=== PATIENT | male | born 1980 | race Caucasian/White ===

== ENCOUNTER 2020-12-07 19:53 | Emergency (ER) | payer MEDICAID, SELFPAY ==
--- NOTE | ~2020-12-07 | XR_ITS ---
EXAMINATION: XR CHEST CLINICAL INFORMATION: Pain COMPARISON: None TECHNIQUE: Frontal view of the chest was obtained. FINDINGS: No acute finding. Lung lopez are grossly clear. No failure or infiltrate. There is no effusion. XR/XR chest 1V IMPRESSION: Negative acute portable chest
[2020-12-07 20:41] VITALS: BP 171/96; PULSE 91; RESP 16; TEMP 37.1; O2SAT 98; BMI 34.0
[2020-12-07 20:43] LABS: MANUAL DIFF FLAG NO
[2020-12-07 20:45] LABS: Basophils Percent Auto 0.5 % (0-2); Eosinophils Absolute Auto 0.1 X10*3/uL (0.0-0.4); Eosinophils Percent Auto 1.9 % (0-4); Hematocrit 45.2 % (42-52); Hemoglobin 16.5 g/dl (14.0-18.0); Imm Gran Abs Auto 0.02 X10*3/uL (0.00-0.03); Imm Gran Pct Auto 0.3 % (0.0-0.4); Lymphocytes Absolute Auto 2.7 X10*3/uL (1.2-4.9); Lymphocytes Percent Auto 36.7 % (20-40); Mean Corpuscular HGB Conc 36.5 g/dl (31.0-36.0); Mean Corpuscular Hemoglobin 31.7 pg (27.0-33.0); Mean Corpuscular Volume 86.8 fL (80-98); Mean Platelet Volume 9.1 fL (9.4-12.4); Monocytes Absolute Auto 0.5 X10*3/uL (0.1-1.2); Monocytes Percent Auto 6.5 % (2-11); Neutrophils Percent Auto 54.1 % (45-73); Platelet Count 189 X10*3/uL (160-400); Red Blood Count 5.21 X10*6/uL (4.60-5.80); Red Cell Distribution Width 11.8 % (11.0-16.0); White Blood Count 7.4 X10*3/uL (4.8-10.8)
[2020-12-07 21:26] LABS: Anion Gap 16 (12-20); Carbon Dioxide 25 mmol/L (22-29); Chloride 105 mmol/L (96-108); Potassium 4.5 mmol/L (3.3-5.1); Sodium 141 mmol/L (135-145)
[2020-12-07 21:32] LABS: Troponin-I High Sensitivity < 3.5 ng/L (<3.5-35.0)
--- NOTE | 2020-12-07 22:09 | ECG_ITS ---
Test Reason : CHEST PAIN Blood Pressure : / mmHG Vent. Rate : 104 BPM Atrial Rate : 104 BPM P-R Int : 154 ms QRS Dur : 086 ms QT Int : 326 ms P-R-T Axes : 036 006 037 degrees QTc Int : 428 ms Sinus tachycardia Septal infarct (cited on or before 28-AUG-2019) Abnormal ECG When compared with ECG of 08-SEP-2019 02:30, Questionable change in initial forces of Septal leads Referred By: Subha Gannon Electronically Signed By:NICOLAS LLAMAS MD
--- NOTE | 2020-12-07 22:10 | ED.CHESTPAIN ---
HPI - Chest Pain General Chief Complaint: Chest Pain Stated Complaint: Chest pain Time Seen by Provider: 12/07/20 22:09 Source: patient Mode of arrival: ambulatory History of Present Illness HPI narrative: 40-year-old male with history of hypertension and an ablation approximately 3 years ago who presents with onset of chest pressure that started approximately 1 hour prior to arrival associated with some dizziness but otherwise denies headache, shortness of breath, diaphoresis, radiation, nausea and states that he feels he may be getting himself wound up . 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 Otherwise, he denies any fever, chills, sore throat, new cough, COVID-19 vaccination, GI or symptoms. Related Data Allergies Allergy/AdvReac Type Severity Reaction Status Date / Time Penicillins [PENICILLINS] Allergy Unknown UNKNOWN Verified 12/07/20 20:59 Review of Systems Review of Systems: Pertinent positives and negatives as stated in HPI 10 point review of systems is otherwise negative. PMFSH Past Medical History Source: nursing notes reviewed Medical History Hxoew-Jrpebypdm-Lsgtk (WPW) syndrome Surgical History H/O cardiac radiofrequency ablation Social History Social History Alcohol intake: unknown Patient Tobacco Use Status: Never used Tobacco Use of substances other than those prescribed or required for medical reasons: No Advance Directives: No Advance Directives Information Provided: Yes Physical Exam Vital Signs: Vital Signs: Last Vital Signs Temp 99.1 F 12/07/20 23:32 Pulse 81 12/07/20 23:32 Resp 12 12/07/20 23:32 BP 149/98 H 12/07/20 23:32 Pulse Ox 93 12/07/20 23:32 Body Mass Index 34.0 VITAL SIGNS: Reviewed. GENERAL: Well developed, well nourished, in no acute distress. HEAD: Normocephalic/atraumatic EYES: PERRLA, EOMI intact without pain, no nystagmus EARS: Ext canals without abnormality, TMs non-bulging and non-erythematous NOSE: Nares patent bilateral OROPHARYNX: no oral lesions noted, posterior pharynx clear NECK: Supple, no adenopathy LUNGS: Normal breath sounds. No adventitious sounds or accessory muscle use. SpO2<98> CARDIOVASCULAR: Regular rate and rhythm without noted murmurs, no JVD or lower extremity edema. ABDOMEN: Obese,Soft, non-tender, non-distended with bowel sounds. SKIN: Inspection of the skin reveals no rashes NEUROLOGIC: Alert and oriented x 4. Strength and sensation to light touch were grossly intact x 4. Course Course Course Narrative: 40-year-old male with history and clinical presentation consistent with chest pressure, will perform serial troponins and a given patient's history of WPW will evaluate electrolyte status to include magnesium. HEART Score:1 Review of all investigations to include serial troponins without acute findings and no acute changes on EKG. Patient informed of results and highly encouraged to follow-up with a primary care provider for further evaluation. MDM - Chest Pain Lab Data Result diagrams: 12/07/20 20:36 12/07/20 20:36 Labs: Lab Results 12/07/20 12/07/20 12/07/20 Range/Units 20:36 20:36 20:36 WBC 7.4 (4.8-10.8) X10*3/uL RBC 5.21 (4.60-5.80) X10*6/uL Hgb 16.5 (14.0-18.0) g/dl Hct 45.2 (42-52) % MCV 86.8 (80-98) fL MCH 31.7 (27.0-33.0) pg MCHC 36.5 H (31.0-36.0) g/dl RDW 11.8 (11.0-16.0) % Plt Count 189 (160-400) X10*3/uL MPV 9.1 L (9.4-12.4) fL Immature Gran % (Auto) 0.3 (0.0-0.4) % Neut % (Auto) 54.1 (45-73) % Lymph % (Auto) 36.7 (20-40) % Wilkinson % (Auto) 6.5 (2-11) % Eos % (Auto) 1.9 (0-4) % Baso % (Auto) 0.5 (0-2) % Lymph # (Auto) 2.7 (1.2-4.9) X10*3/uL Wilkinson # (Auto) 0.5 (0.1-1.2) X10*3/uL Eos # (Auto) 0.1 (0.0-0.4) X10*3/uL Baso # (Auto) 0.0 (0.0-0.2) X10*3/uL Abs Immat Gran (auto) 0.02 (0.00-0.03) X10*3/uL Absolute Neuts (auto) 4.0 (2.0-8.3) X10*3/uL Absolute Nucleated RBC 0.000 (0.0-0.012) X10*3/uL Nucleated RBC % (auto) 0.0 (0.0-0.2) /100WBC Sodium 141 (135-145) mmol/L Potassium 4.5 (3.3-5.1) mmol/L Chloride 105 (96-108) mmol/L Carbon Dioxide 25 (22-29) mmol/L Anion Gap 16 (12-20) Magnesium 1.9 (1.6-2.6) mg/dL Troponin I High Sens < 3.5 (<3.5-35.0) ng/L 12/07/20 Range/Units 23:56 WBC (4.8-10.8) X10*3/uL RBC (4.60-5.80) X10*6/uL Hgb (14.0-18.0) g/dl Hct (42-52) % MCV (80-98) fL MCH (27.0-33.0) pg MCHC (31.0-36.0) g/dl RDW (11.0-16.0) % Plt Count (160-400) X10*3/uL MPV (9.4-12.4) fL Immature Gran % (Auto) (0.0-0.4) % Neut % (Auto) (45-73) % Lymph % (Auto) (20-40) % Wilkinson % (Auto) (2-11) % Eos % (Auto) (0-4) % Baso % (Auto) (0-2) % Lymph # (Auto) (1.2-4.9) X10*3/uL Wilkinson # (Auto) (0.1-1.2) X10*3/uL Eos # (Auto) (0.0-0.4) X10*3/uL Baso # (Auto) (0.0-0.2) X10*3/uL Abs Immat Gran (auto) (0.00-0.03) X10*3/uL Absolute Neuts (auto) (2.0-8.3) X10*3/uL Absolute Nucleated RBC (0.0-0.012) X10*3/uL Nucleated RBC % (auto) (0.0-0.2) /100WBC Sodium (135-145) mmol/L Potassium (3.3-5.1) mmol/L Chloride (96-108) mmol/L Carbon Dioxide (22-29) mmol/L Anion Gap (12-20) Magnesium (1.6-2.6) mg/dL Troponin I High Sens 4.2 (<3.5-35.0) ng/L ECG Data ECG #1: Attestation: I personally reviewed and interpreted this ECG as follows: Prior ECG tracings: not available for review Interpretation: sinus tachycardia, HR -104, no evidence of acute ischemia, ID/QRS / QTC are within normal limits. Discharge Plan Discharge Clinical Impression: Atypical chest pain, Anxiety Patient Disposition: Home, Self-Care Instructions: Anxiety (ED), Chest Wall Pain (ED) Additional Instructions: 1 Resume all home medications as prescribed. 2. Please follow-up with a primary care for care provider in the next 1-2 days for re-evaluation and further outpatient management to included discussion regarding Cardiology referral. Return to the ER for acute worsening of symptoms. Referrals: Physician,None [Primary Care Provider] - 2 days
[2020-12-07 22:28] LABS: Magnesium 1.9 mg/dL (1.6-2.6)
[2020-12-07 23:32] VITALS: BP 149/98; PULSE 81; RESP 12; TEMP 37.3; O2SAT 93
[2020-12-08 00:30] LABS: Troponin-I High Sensitivity 4.2 ng/L (<3.5-35.0)
== END 2020-12-08 01:04 | disposition home or self-care (01) ==
PROVIDERS: Emergency Provider Student in an Organized Health Care Education/Training Program
DX: F41.9 Anxiety disorder, unspecified (principal); R07.89 Other chest pain; I10 Essential (primary) hypertension; I45.6 Pre-excitation syndrome
CPT/HCPCS: 36415; 71045; 80051; 83735; 84484; 85025; 93005; 99285

== ENCOUNTER 2021-02-20 11:15 | Emergency (ER) | payer OTHER, SELFPAY ==
--- NOTE | ~2021-02-20 | XR_ITS ---
EXAMINATION: XR HIP, LEFT CLINICAL INFORMATION: Atraumatic left hip pain, limited range of motion. COMPARISON: CT pelvis 08/13/2018 TECHNIQUE: AP view pelvis and AP and frog-lateral projections of the left hip are obtained for 3 views. FINDINGS: There is no fracture, dislocation, or destructive process. There is normal bony mineralization. The SI joints and pubis show no diastases. No sacroiliitis or osteitis pubis. The hips show no joint narrowing or erosive change. There is a small triangular ossification adjacent to the superolateral left acetabulum similar to the CT study. No acute bony abnormality. XR/XR hip LT w PEL1V IMPRESSION: 1. No sacroiliitis or hip joint narrowing. No erosive change or chondrocalcinosis. 2. Bony mineralization appears normal on plain film. No destructive process.
[2021-02-20 12:19] VITALS: BP 135/89; PULSE 88; RESP 18; TEMP 36.6; O2SAT 96; BMI 36.9
[2021-02-20] MEDS: Ibuprofen 800 MG TABLET PO (13:07)
[2021-02-20] MEDS: oxyCODONE HCl Immed Release 5 MG TABLET PO (13:07)
--- NOTE | 2021-02-20 13:47 | ED.EXTPRO ---
HPI - Extremity Problem General Chief complaint: Extremity Injury, Lower Stated complaint: lt hip pain Time Seen by Provider: 02/20/21 12:46 Source: patient Mode of arrival: ambulatory Limitations: no limitations History of Present Illness HPI Narrative: 41-year-old male presenting to the ED with complaints of atraumatic left hip pain that started yesterday worse today he reports he feels like his ?bone is out of socket?. He reports he is having trouble weight-bearing. Denies any fevers, chills, paresthesias, chest pain or shortness of breath, abdominal pain, dysuria, hematuria, black or bloody stools, dysuria, hematuria, abnormal penile discharge or any other symptoms complaints or injuries at this time. MD Complaint: extremity pain Onset (ago): day(s) (Since yesterday worse today) Pain Consistency: constant Location: left and lower extremity (Hip joint) Severity scale (1-10): >10 Quality: aching Radiation: none Relieving factors: nothing Exacerbating factors: range of motion, weight bearing and walking Associated symptoms: denies other symptoms Related Data Previous Rx's Medication Instructions Recorded acetaminophen 500 mg tablet 1,000 mg PO QID PRN #14 tab 02/20/21 (Tylenol Extra Strength) diazepam 5 mg tablet (Valium) 5 mg PO TID PRN #14 tab 02/20/21 ibuprofen 800 mg tablet 800 mg PO Q8H PRN #14 tab 02/20/21 lidocaine HCl 4 % topical cream 1 appl TOPICAL BID PRN #120 g 02/20/21 (Aspercreme (lidocaine HCl)) oxycodone 5 mg tablet 5 mg PO Q6H PRN #14 tab 02/20/21 Allergies Allergy/AdvReac Type Severity Reaction Status Date / Time Penicillins [PENICILLINS] Allergy Unknown UNKNOWN Verified 12/07/20 20:59 Review of Systems Review of Systems: Constitutional : No Weight loss, No Fever, No Chills, No Night Sweats, No Fatigue, No Malaise ENT/Mouth : No Hearing loss, No Ear Pain, No Nasal Congestion, No Sinus Pain, No Hoarseness, No sore throat, No Rhinorrhea, No Swallowing Difficulty Eyes: No Eye Pain, No Swelling, No Redness, No Foreign Body, No Discharge, No Vision Changes Cardiovascular : No Chest Pain, No SOB, No Dyspnea on Exertion, No Orthopnea, No Edema, No Palpitations Respiratory : No Cough, No Sputum, No Wheezing, No Smoke Exposure, No Dyspnea Gastrointestinal : No Nausea, No Vomiting, No Diarrhea, No Constipation, No abdominal Pain, No Hematochezia, No Melena Genitourinary : no irregular bleeding, No Dysuria, No Urinary Frequency, No Hematuria, No Urinary Incontinence, No Urgency, No Flank Pain, No Urinary Flow Changes, No Hesitancy Musculoskeletal : Positive left hip joint pain, No Myalgias, No Joint Swelling Skin : No Skin Lesions, No rash Neuro : No Weakness, No Numbness, No Paresthesias, No Loss of Consciousness, No Dizziness, No Headache Psych : No Anxiety/Panic, No Depression, No SI/HI/AH/VH, No Social Issues, Heme/Lymph: No Bruising, No Bleeding,No Lymphadenopathy Endocrine : No Polyuria, No Polydipsia, No Temperature Intolerance Yes all other systems are reviewed and are negative [facility] Past Medical History Attestation statement: The following information was validated with the patient. Medical History Wiqid-Ipgtmddqd-Ftxbo (WPW) syndrome Surgical History H/O cardiac radiofrequency ablation Social History Social History Alcohol intake: unknown Patient Tobacco Use Status: Never used Tobacco Advance Directives: No Advance Directives Information Provided: No Physical Exam Vital Signs: Vital Signs: Last Vital Signs Temp 97.9 F 02/20/21 12:19 Pulse 88 02/20/21 12:19 Resp 18 02/20/21 12:19 BP 135/89 02/20/21 12:19 Pulse Ox 96 02/20/21 12:19 Body Mass Index 36.9 vital signs have been reviewed as normal and appeared to be correct. Blood pressure normal. Heart rate normal. Respiration rate normal. Temperature normal. Oxygen saturation normal. Appearance: Alert. Oriented X3. No acute distress. Head: Normal external exam. Normocephalic. Atraumatic. Eyes: PERRLA. EOMI. Conjunctiva and sclera normal. Eyelids normal. ENT: Pharynx normal. Uvula midline. Moist mucous membranes. Neck: Normal inspection. Neck supple. FROM. No adenopathy. No meningeal signs. CVS: Normal heart rate and rhythm. Heart sound normal. Pulses normal throughout. No murmurs/rales/gallops. Respiratory: No respiratory distress. Painless inspiration. Breath sounds normal. No wheezes/rales/rhonchi noted. Chest nontender. No accessory muscle usage noted or decreased air movement noted. Abdomen: Soft and nontender. Bowel sounds normal in all 4 quadrants. No distention noted. No organomegaly noted. No visible injury noted. Back: No CVA tenderness. Full range of motion noted. No rashes/lesion/induration/fluctuance or signs of infection noted. Skin: Skin warm and dry. Normal skin color. Normal skin turgor. No rashes/lesions/lacerations noted. Extremities: Patient with tenderness palpation to left hip joint at the lateral aspect. Patient has limited range of motion with abduction of the left hip. And he has a limping gait to the left leg due to pain. No signs of infection. No obvious ligamentous injury noted. No lower extremity edema. No calf tenderness is noted. Otherwise Extremities exhibit normal range of motion and nontender. Neuro: Oriented X 3. No motor deficit. No sensory deficit. Reflexes normal. Limping gait due to pain. No focal neuro deficits noted. Vascular: + 2 distal pedal pulses/+2 dorsalis pedis b/l. Normal cap refill. No cyanosis noted to upper extremity nails and lower extremity toes nails. Course Course Course Narrative: 41-year-old male presenting to the ED with complaints of atraumatic left hip pain that started yesterday worse today where he reports it hurts when he walks. On exam patient does not have any signs of infection has mild tenderness palpation to the left hip joint at the lateral aspect. No medial tenderness noted. No signs of infection or rashes noted. No obvious ligamentous injury noted. Mild limited range of motion due to pain and a limping gait due to pain. X-ray obtained of left hip and revealed chronic changes no acute processes were noted. And patient continues to deny any abdominal pain. He denies any dysuria, hematuria, abnormal penile discharge. And abdomen is soft nontender. He does not have any CVA tenderness. He does not have any lower extremity pain/edema or calf tenderness. Therefore at this time will provide crutches and symptomatic treatment instructions return if any new or worsening symptoms follow-up with primary care provider and orthopedics if symptoms persist for longer than 2-3 weeks. Patient understands agrees with this plan. MDM - Extremity (Nontraumatic) Medical Records Attestation: I reviewed the patient's medical records. Imaging Data Left hip x-ray: Attestation: I personally reviewed and interpreted this imaging study as follows: Radiologist's impression: FINDINGS: There is no fracture, dislocation, or destructive process. There is normal bony mineralization. The SI joints and pubis show no diastases. No sacroiliitis or osteitis pubis. The hips show no joint narrowing or erosive change. There is a small triangular ossification adjacent to the superolateral left acetabulum similar to the CT study. No acute bony abnormality. XR/XR hip LT w PEL1V IMPRESSION: ? 1. No sacroiliitis or hip joint narrowing. No erosive change or chondrocalcinosis. 2. Bony mineralization appears normal on plain film. No destructive process. Discharge Plan Discharge Clinical Impression: Muscle strain of left hip Patient Disposition: Home, Self-Care Instructions: Muscle Strain (ED), Groin Strain (ED), Crutch Instructions (ED) Prescriptions: New diazepam [Valium] 5 mg tablet 5 mg PO TID PRN (Reason: muscle spasm) Qty: 14 RF: 0 lidocaine HCl [Aspercreme (lidocaine HCl)] 4 % cream 1 appl topical BID PRN (Reason: pain) Qty: 120 RF: 0 ibuprofen 800 mg tablet 800 mg PO Q8H PRN (Reason: pain) Qty: 14 RF: 0 acetaminophen [Tylenol Extra Strength] 500 mg tablet 1,000 mg PO QID PRN (Reason: fever or pain) Qty: 14 RF: 0 oxycodone 5 mg tablet 5 mg PO Q6H PRN (Reason: pain) Qty: 14 RF: 0 Referrals: Tracy Wolf MD [Physician] - 2 weeks (if symptoms persist ) Physician,Unknown [Primary Care Provider] - 2 days (your pcp) Stand Alone Forms: Work/School Release Print Language: [place]
[2021-02-20 14:16] VITALS: RESP 18
== END 2021-02-20 14:24 | disposition home or self-care (01) ==
PROVIDERS: Emergency Provider Internal Medicine
DX: M25.552 Pain in left hip (principal); Z79.899 Other long term (current) drug therapy
CPT/HCPCS: 73502; 99283

== ENCOUNTER 2021-11-29 20:58 | Emergency (ER) | payer OTHER, SELFPAY ==
[2021-11-29 21:04] VITALS: BP 145/88; BP 210/100; PULSE 115; PULSE 136; RESP 10; TEMP 36.7; O2SAT 97; BMI 37.4
--- NOTE | 2021-11-29 21:07 | ECG_ITS ---
Test Reason : TACHYCARDIA Blood Pressure : / mmHG Vent. Rate : 111 BPM Atrial Rate : 111 BPM P-R Int : 160 ms QRS Dur : 090 ms QT Int : 322 ms P-R-T Axes : 041 005 036 degrees QTc Int : 437 ms Sinus tachycardia Septal infarct (cited on or before 28-AUG-2019) Abnormal ECG When compared with ECG of 07-DEC-2020 19:58, No significant change was found Referred By: Justine Husain Electronically Signed By:NICOLAS LLAMAS MD
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
[2021-11-29 21:34] LABS: MANUAL DIFF FLAG NO
[2021-11-29] MEDS: LORazepam 0.5 MG TABLET PO (21:36)
[2021-11-29 21:49] LABS: Basophils Absolute Auto 0.1 X10*3/uL (0.0-0.2); Basophils Percent Auto 0.7 % (0-2); Eosinophils Absolute Auto 0.1 X10*3/uL (0.0-0.4); Eosinophils Percent Auto 1.2 % (0-4); Hemoglobin 16.3 g/dl (14.0-18.0); Imm Gran Abs Auto 0.02 X10*3/uL (0.00-0.03); Imm Gran Pct Auto 0.2 % (0.0-0.4); Lymphocytes Absolute Auto 3.4 X10*3/uL (1.2-4.9); Lymphocytes Percent Auto 38.6 % (20-40); Mean Corpuscular HGB Conc 36.2 g/dl (31.0-36.0); Mean Corpuscular Volume 85.6 fL (80.0-98.0); Mean Platelet Volume 9.1 fL (9.4-12.4); Monocytes Absolute Auto 0.6 X10*3/uL (0.1-1.2); Neutrophils Absolute Auto 4.7 x10*3/uL (2.0-8.3); Neutrophils Percent Auto 52.3 % (45-73); Platelet Count 192 X10*3/uL (160-400); Red Blood Count 5.26 X10*6/uL (4.60-5.80); White Blood Count 8.9 X10*3/uL (4.8-10.8)
[2021-11-29 21:52] LABS: Alanine Aminotransferase 60 U/L (0-40); Albumin Level 4.2 g/dL (3.5-5.0); Alkaline Phosphatase 98 U/L (39-117); Anion Gap 13 (12-20); Aspartate Amino Transferase 39 U/L (5-37); Bilirubin Total 0.7 mg/dL (0.0-1.0); Blood Urea Nitrogen 12 mg/dL (9-16); COVID-19 Test Negative (Negative); Carbon Dioxide 27 mmol/L (22-29); Chloride 105 mmol/L (96-108); Estimated Glomerular Filt Rate > 60; Glucose Random 127 mg/dL (60-115); Magnesium 2.1 mg/dL (1.6-2.6); Potassium 3.6 mmol/L (3.3-5.1); Sodium 141 mmol/L (135-145); Total Protein 7.4 g/dL (6.5-8.0)
[2021-11-29 21:58] LABS: Troponin-I High Sensitivity 3.7 ng/L (<3.5-35.0)
[2021-11-29 22:03] VITALS: BP 145/91; PULSE 85; RESP 14; TEMP 36.8; O2SAT 95
[2021-11-29] MEDS: 0.9 % Sodium Chloride 1,000 ML 999 ML IV (23:25)
[2021-11-30 01:33] LABS: Troponin-I High Sensitivity 4.4 ng/L (<3.5-35.0)
[2021-11-30 01:49] VITALS: BP 134/78; PULSE 62; RESP 14; TEMP 36.7; O2SAT 97
== END 2021-11-30 02:06 | disposition home or self-care (01) ==
PROVIDERS: Physician Assistant; Emergency Provider Emergency Medicine Emergency Medical Services
DX: T75.4XXA Electrocution, initial encounter (principal); I45.6 Pre-excitation syndrome; Z20.822 Contact with and (suspected) exposure to COVID-19; W86.1XXA Exposure to industrial wiring, appliances and electrical machinery, initial encounter; Y93.9 Activity, unspecified; Y92.9 Unspecified place or not applicable; Y99.9 Unspecified external cause status
CPT/HCPCS: 36415; 80053; 82550; 83735; 84484; 85025; 87635; 93005; 96360; 99284; 99285

== ENCOUNTER 2023-08-30 12:15 | Emergency (ER) | payer OTHER, SELFPAY ==
--- NOTE | ~2023-08-30 | CT_ITS ---
EXAMINATION: CT HEAD WITHOUT CONTRAST CLINICAL INFORMATION: Dizziness, headache COMPARISON: None available. TECHNIQUE: Contiguous axial imaging was performed from the skull base to vertex without intravenous administration of contrast. This CT examination was performed using dose optimization techniques as appropriate, variously including the following: *Automated exposure control *Adjustment of mA and/or kV according to patient size (this includes techniques or standardized protocols for targeted exams where dose is matched to indication/reason for exam; i.e. extremities or head) *Use of iterative reconstruction technique DLP: 720 mGy-cm FINDINGS: No acute intracranial hemorrhage or infarct. The simms-white matter differentiation is preserved. No midline shift or hydrocephalus. No acute extra-axial fluid collections. The osseous structures are unremarkable. No orbital pathology. Mild mucosal thickening of the paranasal sinuses with polyposis versus mucus retention cysts in the bilateral maxillary sinuses. Mastoid air cells are clear. CT/CT head/brain wo IV con IMPRESSION: -No acute intracranial pathology. -Pansinus mucosal disease.
--- NOTE | ~2023-08-30 | CT_ITS ---
EXAMINATION: CTA head and neck with contrast CLINICAL INFORMATION: Left-sided numbness, tingling, blurred vision COMPARISON: None available. TECHNIQUE: Test bolus sequences followed by intravenous administration of 70 mL of Omnipaque 350 contrast. Helical imaging was performed in the axial plane from the skull vertex to the thoracic inlet. Delayed postcontrast imaging of the head was also performed. The data was processed at the cytotechnologist supervisor workstation for generation of MIP sequences. Angled MIPs and volume rendered reformatted images were also generated at an offline 3D workstation. Stenoses are assessed in accordance with NASCET criteria unless otherwise indicated. This CT examination was performed using dose optimization techniques as appropriate, variously including the following: *Automated exposure control *Adjustment of mA and/or kV according to patient size (this includes techniques or standardized protocols for targeted exams where dose is matched to indication/reason for exam; i.e. extremities or head) *Use of iterative reconstruction technique DLP: 1476 mGy-cm FINDINGS: CTA neck: Three-vessel aortic arch. The innominate and bilateral subclavian arteries are patent. The origins and cervical segments of the common carotid arteries as well as the common carotid artery bifurcations are patent bilaterally. The cervical segments of the internal carotid arteries are patent bilaterally. The origins and cervical segments of the vertebral arteries are patent bilaterally. No hemodynamically significant stenosis, dissection, or aneurysm. The visualized branches of the external carotid arteries are unremarkable. CTA HEAD: Anterior circulation: The petrous, cavernous, and supraclinoid segments of the internal carotid arteries are patent bilaterally. The major branches of the anterior and middle cerebral arteries as well as the anterior communicating artery complex are also patent. No large vessel occlusion, saccular aneurysm, or dissection. Posterior circulation: The intracranial vertebral arteries are patent. The basilar artery is normal in caliber and course. The posterior cerebral and superior cerebellar arteries arise normally from the basilar summit. No aneurysm. On delayed imaging, the venous structures demonstrate normal contrast opacification. No filling defect. No abnormal intraparenchymal enhancement. Soft tissues: No suspicious neck mass or cervical adenopathy. Lungs: Clear. Bones: No acute osseous abnormality. No lytic or blastic osseous lesions. Multilevel degenerative changes of the visualized spine. CT/CT angio head neck IMPRESSION: CTA head demonstrates no large vessel occlusion, saccular aneurysm, or dissection. CTA neck demonstrates no hemodynamically significant stenosis, dissection, or aneurysm.
[2023-08-30 12:25] VITALS: PULSE 100; RESP 18; TEMP 37.1; O2SAT 97; BMI 37.2
--- NOTE | 2023-08-30 12:31 | ED_ITS ---
HPI - General Adult General Chief complaint: General Medical Stated complaint: ear pain/headache Time Seen by Provider: 08/30/23 12:51 Source: patient Mode of arrival: ambulatory Limitations: no limitations History of Present Illness HPI narrative: Patient is a 43 year old assigned male at with a history of WPW presenting to the emergency department today with left sided facial numbness/tingling, left ear pain, and intermittent left eye blurriness. Patient states that over the last 2 days he has had left sided facial numbness / tingling with left ear pain and intermittent left eye blurriness. Patient denies any dizziness, lightheadedness, abdominal pain, nausea, vomiting, fever, chills, blurry vision, double vision, loss of vision, chest pain, difficulty breathing, shortness of breath, back pain, night sweats, pain with urination, increased urinary frequency, increased urinary urgency, blood in his urine or stool, syncope or a near syncopal episode, recent trauma or falls, bowel incontinence, bladder incontinence, bowel retention, bladder retention, or any other complaints at this time. Onset (ago): day(s) (2) Location: head, face and left Severity: mild Relieving factors: none Exacerbating factors: none Associated symptoms: denies other symptoms Treatments prior to arrival: none Related Data Previous Rx's Medication Instructions Recorded acetaminophen 500 mg tablet 1,000 mg (2 x 500 mg) PO QID PRN 02/20/21 (Tylenol Extra Strength) fever or pain #14 tabs diazepam 5 mg tablet (Valium) 5 mg PO TID PRN muscle spasm #14 02/20/21 tabs ibuprofen 800 mg tablet 800 mg PO Q8H PRN pain #14 tabs 02/20/21 lidocaine HCl 4 % topical cream 1 appl topical BID PRN pain #120 02/20/21 (Aspercreme (lidocaine HCl)) grams oxycodone 5 mg tablet 5 mg PO Q6H PRN pain #14 tabs 02/20/21 amoxicillin 875 mg tablet 875 mg PO BID 10 days #20 tabs 08/30/23 doxycycline hyclate 100 mg tablet 100 mg PO BID 7 days #14 tabs 08/30/23 Allergies Allergy/AdvReac Type Severity Reaction Status Date / Time Penicillins [PENICILLINS] Allergy Unknown UNKNOWN Verified 08/30/23 12:25 Review of Systems 2 Constitutional: Constitutional: Reports no additional constitutional complaints, Denies chills, Denies fever(s) and Denies night sweats Eyes: Eyes: Reports no additional eye complaints, Denies blurry vision, Denies change in vision, Denies diplopia, Denies eye discharge, Denies loss of vision and Denies eye pain ENT: Denies dizziness Comments: left sided ear pain, left sided facial numbness / tingling, intermittent left eye blurriness Cardiovascular: Cardiovascular: Reports no additional cardiovascular complaints, Denies chest pain, Denies lightheadedness, Denies Loss of Consciousness and Denies dyspnea Respiratory: Respiratory: Reports no additional respiratory complaints and Denies dyspnea Gastrointestinal: Gastrointestinal: Reports no additional gastrointestinal complaints, Denies abdominal pain, Denies melena, Denies hematochezia, Denies change in bowel habits and Denies change in stool character Genitourinary: Genitourinary: Reports no additional male genitourinary complaints, Denies hematuria, Denies oliguria, Denies difficulty urinating, Denies dysuria, Denies urinary frequency, Denies urinary hesitancy, Denies urinary incontinence and Denies urinary urgency Musculoskeletal: Musculoskeletal: Reports no additional musculoskeletal complaints, Denies numbness and Denies tingling Neurologic: Denies dizziness, Denies loss of vision, Denies numbness and Denies tingling Psychiatric: Psychiatric: Reports no additional psychiatric complaints Endocrine: Endocrine: Reports no additional endocrine complaints Hematologic/Lymphatic: Hematologic/Lymphatic: Reports no additional hematologic/lymphatic complaints Allergic/Immunologic: Allergic/Immunologic: Reports no additional allergic/immunologic complaints [facility] Past Medical History Attestation statement: The following information was validated with the patient. Source: old records reviewed and nursing notes reviewed Medical History Lgrsc-Zwrvqzprv-Kzohp (WPW) syndrome Surgical History H/O cardiac radiofrequency ablation Social History Social History Alcohol intake: unknown Patient Tobacco Use Status: Never used Tobacco Advance Directives: No Physical Exam ED Vital Signs: Vital Signs - 24 hr 08/30/23 12:25 08/30/23 14:56 08/30/23 16:10 Temperature 98.7 F 97.7 F Pulse Rate 100 88 93 Respiratory Rate 18 16 18 Blood Pressure 129/91 H 146/89 H Pulse Oximetry 97 94 96 Oxygen Delivery Method Room Air Room Air Room Air BMI result Body Mass Index 37.2 Const General: cooperative, no acute distress, alert and awake Nutritional Appearance: well nourished Orientation/consciousness: patient oriented x3 Limitations: no limitations HENMT Head: Yes normal to inspection and Yes atraumatic Ears: hearing grossly normal bilaterally and external ears normal General nose exam: Normal external nose present, no nasal discharge noted and no epistaxis Face and sinus: Yes normal facial exam, No abrasion and No laceration Mouth: Normal oral and palatal mucosa present, no drooling and no muffled voice Eyes General: appearance normal, both eyes and all related structures Periorbital: periorbital findings normal Eyelids: Yes eyelids normal Conjunctivae: conjunctivae normal Pupils: Equal, round and reactive pupils present EOM: EOMs intact bilaterally Neck Neck: Yes normal visual inspection, Yes full ROM and Yes no lymphadenopathy Chest Chest palpation & inspection: normal inspection of the chest Resp Effort & Inspection: normal respiratory effort and able to speak in complete sentences GI Inspection: Yes normal to inspection Neuro General: patient oriented x3 and moves all extremities Cranial nerves: Yes Equal, round and reactive pupils present Cognition (Neuro): normal cognition Motor exam (neuro): 5/5 motor strength present throughout Sensory Exam: Normal double simultaneous stimulation for sensation Coordination: [id number] test normal Extrem General: Yes normal to inspection, Yes full ROM and Yes capillary refill normal Psych Appearance: grossly normal Mental Status: mental status grossly normal Affect: normal affect Attitude: cooperative Thought process: Normal thought process present Thought content: Normal thought content present Insight: Good insight present (Psych) NIH Stroke Scale Internal: Initial- Upon Arrival Time: 12:51 Level of Consciousness: Alert Level of Consciousness Questions: Answers both questions correctly Level of Consciousness Commands: Performs both tasks correctly Best Gaze: Normal Visual: No visual loss Facial Palsy: Normal Motor Arm (Right): No drift Motor Arm (Left): No drift Motor Leg (Right): No drift Motor Leg (Left): No drift Limb Ataxia: Absent Sensory: Normal Best Language: No aphasia Dysarthia: Normal Extinction and Inattention: No abnormality Score: 0 Course Course Course Narrative: RME:?43 yo male here for eval of left facial numbness/pain x2 days. assoc blurred vision in L eye. did not take OTC meds over the last 2 days. denies N/V, fever, chills, sore throat. no sick contacts. no hx of migraines. exam nonfocal. NIH stroke scale 0. Full HPI, ROS and PE to be performed by the primary ED provider. Medications Administered Discontinued Medications Generic Name Dose Route Start Last Admin Trade Name Kassidy PRN Reason Stop Dose Admin Iohexol 70 ml 08/30/23 14:19 08/30/23 14:20 Iohexol 350 Mg/Ml 100 Ml Infus..Btl IV 08/30/23 14:20 70 ml ONCE ONE Administration Lorazepam 2 mg 08/30/23 14:37 08/30/23 14:42 Lorazepam 2 Mg/Ml Vial IVPUSH 08/30/23 14:38 2 mg ONCE ONE Administration Morphine Sulfate 4 mg 08/30/23 15:37 08/30/23 15:48 Morphine Sulfate 4 Mg/Ml Cartridge IVPUSH 08/30/23 15:38 4 mg ONCE ONE Administration Protocol Ondansetron HCl 4 mg 08/30/23 15:37 08/30/23 15:49 Ondansetron Hcl 4 Mg/2 Ml Vial IVPUSH 08/30/23 15:38 4 mg ONCE ONE Administration Medical Decision Making Medical Decision Making [facility] Narrative: Patient is a 43 year old assigned male at with no reported medical history presenting to the emergency department today with left sided paresthesias and left ear pain. Patient's physical exam was unremarkable. Patient's blood work was unremarkable. Patient's EKG was unremarkable. Patient's head CT showed evidence of sinus disease. Patient's head and neck CTAs were negative. Patient's strep test was positive. I explained my physical exam findings as well as all test results to the patient. I answered all questions asked by the patient. I stressed the importance of the patient taking his medication as prescribed. I stressed the importance of the patient following up with his primary care provider. I stressed the importance of the patient returning to the emergency department immediately if his symptoms were to worsen or if he were to develop any dizziness, shortness of breath, difficulty breathing, chest pain, blurry vision, loss of vision, nausea, vomiting, abdominal pain, fever, chills, back pain, or any other complaints. Patient verbalized agreement and understanding with this treatment plan and discharge. Differential Diagnosis Differential Diagnoses: The differential diagnosis associated with the presentation includes Paresthesias Otitis media Otitis externa CVA Strep pharyngitis COVID-19 Influenza Sinusitis Admission/Observation Consideration of admission/observation: Escalation of care including admission/observation considered Patient would have been admitted to the hospital had his work up had any findings where hospital admission was appropriate and his clinical presentation warranted hospital admission. Lab Data [facility] Lab Attestation statement: I reviewed the patient's lab results. My interpretation of these results are in the MDM Rationale portion of this note. 08/30/23 12:35 08/30/23 12:35 Labs: Lab Results 08/30/23 08/30/23 08/30/23 Range/Units 12:35 13:40 15:03 WBC 7.1 (4.8-10.8) X10*3/uL RBC 5.61 (4.60-5.80) X10*6/uL Hgb 17.7 (14.0-18.0) g/dl Hct 47.3 (42.0-52.0) % MCV 84.3 (80.0-98.0) fL MCH 31.6 (27.0-33.0) pg MCHC 37.4 H (31.0-36.0) g/dl RDW 11.8 (11.0-16.0) % Plt Count 196 (160-400) X10*3/uL MPV 9.0 L (9.4-12.4) fL Immature Gran % (Auto) 0.1 (0.0-0.4) % Neut % (Auto) 59.7 (45-73) % Lymph % (Auto) 32.3 (20-40) % [place] % (Auto) 5.7 (2-11) % Eos % (Auto) 1.6 (0-4) % Baso % (Auto) 0.6 (0-2) % Lymph # (Auto) 2.3 (1.2-4.9) X10*3/uL [place] # (Auto) 0.4 (0.1-1.2) X10*3/uL Eos # (Auto) 0.1 (0.0-0.4) X10*3/uL Baso # (Auto) 0.0 (0.0-0.2) X10*3/uL Abs Immat Gran (auto) 0.01 (0.00-0.03) X10*3/uL Absolute Neuts (auto) 4.2 (2.0-8.3) x10*3/uL Absolute Nucleated RBC 0.000 (0.0-0.012) X10*3/uL Nucleated RBC % (auto) 0.0 (0.0-0.2) /100WBC Sodium 140 (135-145) mmol/L Potassium 3.9 (3.3-5.1) mmol/L Chloride 105 (96-108) mmol/L Carbon Dioxide 23 (22-29) mmol/L Anion Gap 16 (12-20) BUN 9 (9-16) mg/dL Creatinine 0.94 (0.5-1.4) mg/dL Estim Creat Clear Calc 126.3 Estimated GFR > 60 Random Glucose 157 H (60-115) mg/dL Calcium 9.3 (8.4-10.2) mg/dL Total Bilirubin 0.8 (0.0-1.0) mg/dL AST 31 (5-37) U/L ALT 51 H (0-40) U/L Alkaline Phosphatase 90 (39-117) U/L Troponin I High Sens < 2.7 (<3.5-35.0) ng/L Total Protein 7.9 (6.5-8.0) g/dL Albumin 4.3 (3.5-5.0) g/dL Influenza Type A (PCR) NEGATIVE (Negative) Influenza Type B (PCR) NEGATIVE (Negative) RSV RNA Qual (PCR) NEGATIVE (Negative) SARS-CoV-2 RNA (RT-PCR) NEGATIVE (Negative) S. pyogenes GrpA GABRIELA Positive A (Negative) Independent Interpretation I performed an independent interpretation of an: EKG and CT Scan Interpretation: My interpretation is in agreement with the radiologist's impression of these imaging studies. - EXAMINATION: CT HEAD WITHOUT CONTRAST CLINICAL INFORMATION: Dizziness, headache COMPARISON: None available. TECHNIQUE: Contiguous axial imaging was performed from the skull base to vertex without intravenous administration of contrast. This CT examination was performed using dose optimization techniques as appropriate, variously including the following: *Automated exposure control *Adjustment of mA and/or kV according to patient size (this includes techniques or standardized protocols for targeted exams where dose is matched to indication/reason for exam; i.e. extremities or head) *Use of iterative reconstruction technique DLP: 720 mGy-cm FINDINGS: No acute intracranial hemorrhage or infarct. The simms-white matter differentiation is preserved. No midline shift or hydrocephalus. No acute extra-axial fluid collections. The osseous structures are unremarkable. No orbital pathology. Mild mucosal thickening of the paranasal sinuses with polyposis versus mucus retention cysts in the bilateral maxillary sinuses. Mastoid air cells are clear. CT/CT head/brain wo IV con IMPRESSION: -No acute intracranial pathology. -Pansinus mucosal disease. Dictated By: Chico De Anda MD Signed By: Electronically signed by Chico De Anda MD 08/30/23 1333 - EXAMINATION: CTA head and neck with contrast CLINICAL INFORMATION: Left-sided numbness, tingling, blurred vision COMPARISON: None available. TECHNIQUE: Test bolus sequences followed by intravenous administration of 70 mL of Omnipaque 350 contrast. Helical imaging was performed in the axial plane from the skull vertex to the thoracic inlet. Delayed postcontrast imaging of the head was also performed. The data was processed at the staff technologist workstation for generation of MIP sequences. Angled MIPs and volume rendered reformatted images were also generated at an offline 3D workstation. Stenoses are assessed in accordance with NASCET criteria unless otherwise indicated. This CT examination was performed using dose optimization techniques as appropriate, variously including the following: *Automated exposure control *Adjustment of mA and/or kV according to patient size (this includes techniques or standardized protocols for targeted exams where dose is matched to indication/reason for exam; i.e. extremities or head) *Use of iterative reconstruction technique DLP: 1476 mGy-cm FINDINGS: CTA neck: Three-vessel aortic arch. The innominate and bilateral subclavian arteries are patent. The origins and cervical segments of the common carotid arteries as well as the common carotid artery bifurcations are patent bilaterally. The cervical segments of the internal carotid arteries are patent bilaterally. The origins and cervical segments of the vertebral arteries are patent bilaterally. No hemodynamically significant stenosis, dissection, or aneurysm. The visualized branches of the external carotid arteries are unremarkable. CTA HEAD: Anterior circulation: The petrous, cavernous, and supraclinoid segments of the internal carotid arteries are patent bilaterally. The major branches of the anterior and middle cerebral arteries as well as the anterior communicating artery complex are also patent. No large vessel occlusion, saccular aneurysm, or dissection. Posterior circulation: The intracranial vertebral arteries are patent. The basilar artery is normal in caliber and course. The posterior cerebral and superior cerebellar arteries arise normally from the basilar summit. No aneurysm. On delayed imaging, the venous structures demonstrate normal contrast opacification. No filling defect. No abnormal intraparenchymal enhancement. Soft tissues: No suspicious neck mass or cervical adenopathy. Lungs: Clear. Bones: No acute osseous abnormality. No lytic or blastic osseous lesions. Multilevel degenerative changes of the visualized spine. CT/CT angio head neck IMPRESSION: CTA head demonstrates no large vessel occlusion, saccular aneurysm, or dissection. CTA neck demonstrates no hemodynamically significant stenosis, dissection, or aneurysm. Dictated By: Chico De Anda MD Signed By: Electronically signed by Chico De Anda MD 08/30/23 1532 - Vent. Rate: 095 BPM Atrial Rate: 095 BPM P-R Int: 158 ms QRS Dur: 088 ms QT Int: 340 ms P-R-T Axes: 046 -02 049 degrees QTc Int: 427 ms Normal sinus rhythm with sinus arrhythmia Normal ECG When compared with ECG of 29-NOV-2021 20:59, No significant change was found DD/ 1450 Radiology Impression Discussion of test interpretation with radiology: I have reviewed the radiologist's reading. Prescription Management I considered prescription management with: Antibiotic (patient prescribed an antibiotic for his strep pharyngitis and sinusitis) Critical Care Time Critical Care Time Critical Care Time: Yes Total Critical Care Time: 88 Attestation: I spent 88 minutes of Critical Care Time with this patient. This does not include time spent on separately reported billable procedures. Discharge Plan Discharge Clinical Impression: Strep pharyngitis, Sinusitis, Headache Patient Disposition: Home, Self-Care Instructions: Sinusitis (ED), Strep Throat (DC), Acute Headache (DC) Additional Instructions: Take all of your antibiotics as prescribed. Even if you start to feel better - you MUST finish your course of antibiotics. Follow up with your primary care provider and an ENT. Return to the emergency department immediately if your symptoms worsen or if you develop any dizziness, shortness of breath, difficulty breathing, chest pain, blurry vision, loss of vision, nausea, vomiting, abdominal pain, fever, chills, back pain, or any other complaints. Prescriptions: New amoxicillin 875 mg tablet 875 mg PO BID 10 Days Qty: 20 0RF doxycycline hyclate 100 mg tablet 100 mg PO BID 7 Days Qty: 14 0RF No Action diazepam [Valium] 5 mg tablet 5 mg PO TID PRN (Reason: muscle spasm) Qty: 14 0RF lidocaine HCl [Aspercreme (lidocaine HCl)] 4 % cream 1 appl topical BID PRN (Reason: pain) Qty: 120 0RF ibuprofen 800 mg tablet 800 mg PO Q8H PRN (Reason: pain) Qty: 14 0RF acetaminophen [Tylenol Extra Strength] 500 mg tablet 1,000 mg PO QID PRN (Reason: fever or pain) Qty: 14 0RF oxycodone 5 mg tablet 5 mg PO Q6H PRN (Reason: pain) Qty: 14 0RF Referrals: [facility] Family Medicine [Provider Group] (Call to establish and follow up with a primary care provider. If you already have a primary care provider, please follow up with them.) [facility] Primary Care, Stef [Provider Group] (Call to establish and follow up with a primary care provider. If you already have a primary care provider, please follow up with them.) [facility] Primary Care,Juan Pablo [Provider Group] (Call to establish and follow up with a primary care provider. If you already have a primary care provider, please follow up with them.) [place] Acosta [Physician] - (Call to establish and follow up with an ENT specialist to discuss the findings in your sinuses. ) Stand Alone Forms: Work/School Release Interventions: ED Discharge Assessment Last Done: 08/30/23 16:10 Discharge Date/Time: 08/30/23 16:11 Print Language: French
[2023-08-30 12:39] LABS: MANUAL DIFF FLAG NO
[2023-08-30 12:51] LABS: Basophils Percent Auto 0.6 % (0-2); Eosinophils Absolute Auto 0.1 X10*3/uL (0.0-0.4); Eosinophils Percent Auto 1.6 % (0-4); Hematocrit 47.3 % (42.0-52.0); Hemoglobin 17.7 g/dl (14.0-18.0); Imm Gran Abs Auto 0.01 X10*3/uL (0.00-0.03); Imm Gran Pct Auto 0.1 % (0.0-0.4); Lymphocytes Absolute Auto 2.3 X10*3/uL (1.2-4.9); Lymphocytes Percent Auto 32.3 % (20-40); Mean Corpuscular HGB Conc 37.4 g/dl (31.0-36.0); Mean Corpuscular Hemoglobin 31.6 pg (27.0-33.0); Mean Corpuscular Volume 84.3 fL (80.0-98.0); Monocytes Absolute Auto 0.4 X10*3/uL (0.1-1.2); Monocytes Percent Auto 5.7 % (2-11); Neutrophils Absolute Auto 4.2 x10*3/uL (2.0-8.3); Neutrophils Percent Auto 59.7 % (45-73); Platelet Count 196 X10*3/uL (160-400); Red Blood Count 5.61 X10*6/uL (4.60-5.80); Red Cell Distribution Width 11.8 % (11.0-16.0); White Blood Count 7.1 X10*3/uL (4.8-10.8)
[2023-08-30 12:55] LABS: Alanine Aminotransferase 51 U/L (0-40); Albumin Level 4.3 g/dL (3.5-5.0); Alkaline Phosphatase 90 U/L (39-117); Anion Gap 16 (12-20); Aspartate Amino Transferase 31 U/L (5-37); Bilirubin Total 0.8 mg/dL (0.0-1.0); Blood Urea Nitrogen 9 mg/dL (9-16); Calcium 9.3 mg/dL (8.4-10.2); Carbon Dioxide 23 mmol/L (22-29); Chloride 105 mmol/L (96-108); Creatinine Clr Calc Pharmacy 126.3; Estimated Glomerular Filt Rate > 60; Glucose Random 157 mg/dL (60-115); Potassium 3.9 mmol/L (3.3-5.1); Sodium 140 mmol/L (135-145); Total Protein 7.9 g/dL (6.5-8.0)
[2023-08-30 14:04] LABS: IDNOW Serial# 08D9AD1C; Strep A Nucleic Acid Positive (Negative)
[2023-08-30] MEDS: iohexoL 350 MG/ML 100 ML INFUS..BTL 70 ML IV (14:20)
--- NOTE | 2023-08-30 14:30 | ECG_ITS ---
Test Reason : CP Blood Pressure : / mmHG Vent. Rate : 095 BPM Atrial Rate : 095 BPM P-R Int : 158 ms QRS Dur : 088 ms QT Int : 340 ms P-R-T Axes : 046 -02 049 degrees QTc Int : 427 ms Normal sinus rhythm with sinus arrhythmia Normal ECG When compared with ECG of 29-NOV-2021 20:59, No significant change was found Referred By: Judy Mann Electronically Signed By:RAMESH ANAYA
[2023-08-30 14:32] LABS: Influenza A PCR NEGATIVE (Negative); Influenza B PCR NEGATIVE (Negative); Resp Syncy Virus RNA Qual PCR NEGATIVE (Negative); SARS COV2 PCR INHOUSE NEGATIVE (Negative)
[2023-08-30] MEDS: LORazepam 2 MG/ML VIAL IVPUSH (14:42)
[2023-08-30 14:56] VITALS: BP 129/91; PULSE 88; RESP 16; O2SAT 94
[2023-08-30 15:32] LABS: Troponin-I High Sensitivity < 2.7 ng/L (<3.5-35.0)
[2023-08-30] MEDS: Morphine Sulfate 4 MG/ML CARTRIDGE IVPUSH (15:48)
[2023-08-30] MEDS: ondansetron HCL 4 MG/2 ML VIAL IVPUSH (15:49)
[2023-08-30 16:10] VITALS: BP 146/89; PULSE 93; RESP 18; TEMP 36.5; O2SAT 96
== END 2023-08-30 16:11 | disposition home or self-care (01) ==
PROVIDERS: Physician Assistant Medical; Emergency Provider Emergency Medicine
DX: J02.0 Streptococcal pharyngitis (principal); J32.9 Chronic sinusitis, unspecified; H92.02 Otalgia, left ear; R51.9 Headache, unspecified; R07.89 Other chest pain; Z11.52 Encounter for screening for COVID-19; Z20.822 Contact with and (suspected) exposure to COVID-19; Z79.899 Other long term (current) drug therapy
CPT/HCPCS: 0241U; 36415; 70450; 70496; 70498; 80053; 84484; 85025; 87651; 93005; 96374; 96375; 99284; J2060; J2270; J2405; Q9967

== ENCOUNTER → 2023-08-30 14:30 | Outpatient (BNV) | payer OTHER, SELFPAY | PROVIDERS: Emergency Provider Emergency Medicine; Visit Provider Internal Medicine | DX: R07.9 Chest pain, unspecified (principal) | CPT/HCPCS: 93010 ==

== ENCOUNTER 2023-08-31 16:23 | Emergency (ER) | payer OTHER, SELFPAY ==
[2023-08-31 16:28] VITALS: BP 172/103; PULSE 94; RESP 18; TEMP 36.1; O2SAT 95; BMI 35.4
--- NOTE | 2023-08-31 16:43 | ED.GENADULT ---
HPI - General Adult General Chief complaint: General Medical Stated complaint: left face droop/lump in neck/pain Time Seen by Provider: 08/31/23 20:03 Source: patient, RN notes reviewed and old records reviewed Mode of arrival: ambulatory Limitations: no limitations History of Present Illness HPI narrative: 43-year-old male presents for evaluation of left ear pain and left facial numbness. He was seen here yesterday for similar complaints. He had a stroke workup including CT angiography of the head and neck which was unremarkable. He ended up testing positive for strep pharyngitis and his CT scan showed sinusitis The patient was discharged with amoxicillin and doxycycline He reports worsening pain to his left ear and ?a lump behind/underneath my left ear. ? He also endorses drainage from the left ear He states the pain is unbearable even with ibuprofen and Tylenol No fevers or chills Related Data Previous Rx's Medication Instructions Recorded acetaminophen 500 mg tablet 1,000 mg (2 x 500 mg) PO QID PRN 02/20/21 (Tylenol Extra Strength) fever or pain #14 tabs diazepam 5 mg tablet (Valium) 5 mg PO TID PRN muscle spasm #14 02/20/21 tabs ibuprofen 800 mg tablet 800 mg PO Q8H PRN pain #14 tabs 02/20/21 lidocaine HCl 4 % topical cream 1 appl topical BID PRN pain #120 02/20/21 (Aspercreme (lidocaine HCl)) grams oxycodone 5 mg tablet 5 mg PO Q6H PRN pain #14 tabs 02/20/21 amoxicillin 875 mg tablet 875 mg PO BID 10 days #20 tabs 08/30/23 doxycycline hyclate 100 mg tablet 100 mg PO BID 7 days #14 tabs 08/30/23 ciprofloxacin HCl 0.2 % ear drops 5 drp otic (ear) left Q12H 7 days 08/31/23 in a dropperette #14 ea tramadol 50 mg tablet 50 mg PO Q6H PRN pain #15 tabs 08/31/23 Allergies Allergy/AdvReac Type Severity Reaction Status Date / Time Penicillins [PENICILLINS] Allergy Unknown UNKNOWN Verified 08/31/23 16:27 Review of Systems Constitutional: Constitutional: Denies body ache(s), Denies chills and Denies fever(s) Eyes: Eyes: Denies blurry vision ENT: Reports ear discharge, Reports otalgia and Reports sore throat Cardiovascular: Cardiovascular: Denies chest pain and Denies dyspnea Respiratory: Respiratory: Denies cough and Denies dyspnea Gastrointestinal: Gastrointestinal: Denies abdominal pain, Denies nausea and Denies vomiting Musculoskeletal: Musculoskeletal: Denies back pain, Reports numbness and Reports tingling Integumentary/Breasts: Skin/Breast: Denies rash Neurologic: Reports numbness, Reports tingling and Reports paresthesias Hematologic/Lymphatic: Hematologic/Lymphatic: Reports lymphadenopathy PMFSH Past Medical History Medical History Axctj-Anrzqkzey-Tkvtl (WPW) syndrome Surgical History H/O cardiac radiofrequency ablation Social History Social History Alcohol intake: unknown Patient Tobacco Use Status: Never used Tobacco Smoked in Last 30 Days: No Use of substances other than those prescribed or required for medical reasons: No Advance Directives: No Advance Directives Information Provided: No Physical Exam ED Vital Signs: Vital Signs - 24 hr 08/31/23 16:28 08/31/23 17:25 08/31/23 18:33 Temperature 97 F 98.3 F Pulse Rate 94 84 87 Respiratory Rate 18 18 18 Blood Pressure 172/103 H 140/88 H 137/96 H Pulse Oximetry 95 96 96 Oxygen Delivery Method Room Air Room Air Room Air BMI result Body Mass Index 35.4 Const General: healthy appearing, comfortable, no acute distress, alert and awake Nutritional Appearance: well nourished Orientation/consciousness: patient oriented x3 HENMT Head: Yes normocephalic and Yes atraumatic Ears: external ears normal, TM's normal bilaterally, EAC's not normal and Abnormal EAC present (Left ear only) erythema, edema, EAC tenderness, otic discharge purulent and other (No vesicular changes or rash) Throat: Yes posterior oropharynx normal Eyes Eyelids: Yes eyelids normal Conjunctivae: conjunctivae normal Sclerae: sclerae normal Corneas: corneas normal Pupils: Equal, round and reactive pupils present EOM: EOMs intact bilaterally Neck Neck: Yes full ROM Resp Effort & Inspection: normal respiratory effort, able to speak in complete sentences and not labored GI Inspection: No distended Palpation (GI): Soft to palpation, not firm, nontender, no guarding and not rigid Skin General skin exam: elasticity normal Neuro General: patient oriented x3 Cranial nerves: Yes CN's II-XII intact bilaterally, Yes Equal, round and reactive pupils present and Yes Bilaterally intact EOM present Cognition (Neuro): normal cognition Extrem Other: Moving all extremities well without any obvious deformities Course Course Course Narrative: RME:?43 yo male here for eval of worsening left-sided facial pain. He was evaluated in ED yesterday and discharged home with antibiotics for diagnosis of sinusitis. denies fevers, dizziness, vision changes, chest pain or shortness of breath. no facial droop. Able to raise bilateral eyebrows. Unable to smell completely due to left facial pain. Top And Seat Cover Fitter strength intact bilaterally. No pronator drift. Ambulating with steady gait. Maxillary sinuses nontender to palpation. hypertensive- no hx of HTN. Never required medications. basic labs and serology ordered. Full HPI, ROS and PE to be performed by the primary ED provider. Medical Decision Making Medical Decision Making [facility] Narrative: 43-year-old male presents for evaluation of left ear pain. He reports left facial numbness and paresthesias but his nares are intact. His blood pressure improved without any intervention. On exam he appears to have acute left otitis externa he has purulent otorrhea. No vesicular changes to suggest zoster or Lidia Asif syndrome. Plan to continue the antibiotics for his strep treatment and add Cipro drops to treat otitis externa. He has no evidence of mastoiditis. There is no preauricular or postauricular edema. No postauricular tenderness. He does have some left postauricular lymphadenopathy. He was given a 1 time dose of dexamethasone to help with his discomfort and inflammation Differential Diagnosis Differential Diagnoses: The differential diagnosis associated with the presentation includes Otitis media Otitis externa Pharyngitis Strep pharyngitis Lymphadenopathy Herpes zoster Lab Data [facility] Lab Attestation statement: I reviewed the patient's lab results. No leukocytosis or significant anemia. Normal platelet count. No electrolyte abnormalities. Glucose elevated to 206 without any evidence of DKA. 08/31/23 17:13 08/31/23 17:13 Labs: Lab Results 08/31/23 Range/Units 17:13 WBC 6.2 (4.8-10.8) X10*3/uL RBC 5.44 (4.60-5.80) X10*6/uL Hgb 17.0 (14.0-18.0) g/dl Hct 46.8 (42.0-52.0) % MCV 86.0 (80.0-98.0) fL MCH 31.3 (27.0-33.0) pg MCHC 36.3 H (31.0-36.0) g/dl RDW 11.9 (11.0-16.0) % Plt Count 176 (160-400) X10*3/uL MPV 9.1 L (9.4-12.4) fL Immature Gran % (Auto) 0.2 (0.0-0.4) % Neut % (Auto) 53.6 (45-73) % Lymph % (Auto) 36.0 (20-40) % Mcduffie % (Auto) 7.6 (2-11) % Eos % (Auto) 1.6 (0-4) % Baso % (Auto) 1.0 (0-2) % Lymph # (Auto) 2.2 (1.2-4.9) X10*3/uL Mcduffie # (Auto) 0.5 (0.1-1.2) X10*3/uL Eos # (Auto) 0.1 (0.0-0.4) X10*3/uL Baso # (Auto) 0.1 (0.0-0.2) X10*3/uL Abs Immat Gran (auto) 0.01 (0.00-0.03) X10*3/uL Absolute Neuts (auto) 3.3 (2.0-8.3) x10*3/uL Absolute Nucleated RBC 0.000 (0.0-0.012) X10*3/uL Nucleated RBC % (auto) 0.0 (0.0-0.2) /100WBC Sodium 141 (135-145) mmol/L Potassium 4.0 (3.3-5.1) mmol/L Chloride 104 (96-108) mmol/L Carbon Dioxide 27 (22-29) mmol/L Anion Gap 14 (12-20) BUN 9 (9-16) mg/dL Creatinine 1.03 (0.5-1.4) mg/dL Estim Creat Clear Calc 112.4 Estimated GFR > 60 Random Glucose 206 H (60-115) mg/dL Calcium 9.4 (8.4-10.2) mg/dL Total Bilirubin 0.6 (0.0-1.0) mg/dL AST 23 (5-37) U/L ALT 42 H (0-40) U/L Alkaline Phosphatase 78 (39-117) U/L Total Protein 7.7 (6.5-8.0) g/dL Albumin 4.1 (3.5-5.0) g/dL Influenza Type A (PCR) NEGATIVE (Negative) Influenza Type B (PCR) NEGATIVE (Negative) RSV RNA Qual (PCR) NEGATIVE (Negative) SARS-CoV-2 RNA (RT-PCR) NEGATIVE (Negative) Discharge Plan Discharge Clinical Impression: Strep pharyngitis, Otitis externa Patient Disposition: Home, Self-Care Instructions: Otitis Externa (ED) Additional Instructions: Continue taking your antibiotics for strep throat and sinusitis You have an ear infection called otitis externa to the left ear Use the ciprofloxacin ear drops as directed You were given a dose of steroids which should help decrease inflammation and help with your pain Use Motrin and Tylenol for pain Use tramadol for more severe breakthrough pain This may make you sleepy, did not drink alcohol or drive after taking it Prescriptions: New ciprofloxacin HCl 0.2 % dropperette 5 drp otic (ear) left Q12H 7 Days Qty: 14 0RF tramadol 50 mg tablet 50 mg PO Q6H PRN (Reason: pain) Qty: 15 0RF No Action diazepam [Valium] 5 mg tablet 5 mg PO TID PRN (Reason: muscle spasm) Qty: 14 0RF lidocaine HCl [Aspercreme (lidocaine HCl)] 4 % cream 1 appl topical BID PRN (Reason: pain) Qty: 120 0RF ibuprofen 800 mg tablet 800 mg PO Q8H PRN (Reason: pain) Qty: 14 0RF acetaminophen [Tylenol Extra Strength] 500 mg tablet 1,000 mg PO QID PRN (Reason: fever or pain) Qty: 14 0RF oxycodone 5 mg tablet 5 mg PO Q6H PRN (Reason: pain) Qty: 14 0RF amoxicillin 875 mg tablet 875 mg PO BID 10 Days Qty: 20 0RF doxycycline hyclate 100 mg tablet 100 mg PO BID 7 Days Qty: 14 0RF
[2023-08-31 17:18] LABS: MANUAL DIFF FLAG NO
[2023-08-31 17:19] LABS: Basophils Absolute Auto 0.1 X10*3/uL (0.0-0.2); Eosinophils Absolute Auto 0.1 X10*3/uL (0.0-0.4); Eosinophils Percent Auto 1.6 % (0-4); Hematocrit 46.8 % (42.0-52.0); Imm Gran Abs Auto 0.01 X10*3/uL (0.00-0.03); Imm Gran Pct Auto 0.2 % (0.0-0.4); Lymphocytes Absolute Auto 2.2 X10*3/uL (1.2-4.9); Mean Corpuscular HGB Conc 36.3 g/dl (31.0-36.0); Mean Corpuscular Hemoglobin 31.3 pg (27.0-33.0); Mean Platelet Volume 9.1 fL (9.4-12.4); Monocytes Absolute Auto 0.5 X10*3/uL (0.1-1.2); Monocytes Percent Auto 7.6 % (2-11); Neutrophils Absolute Auto 3.3 x10*3/uL (2.0-8.3); Neutrophils Percent Auto 53.6 % (45-73); Platelet Count 176 X10*3/uL (160-400); Red Blood Count 5.44 X10*6/uL (4.60-5.80); Red Cell Distribution Width 11.9 % (11.0-16.0); White Blood Count 6.2 X10*3/uL (4.8-10.8)
[2023-08-31 17:25] VITALS: BP 140/88; PULSE 84; RESP 18; TEMP 36.8; O2SAT 96
--- NOTE | 2023-08-31 17:27 | PC.NURSE ---
patient a&ox3, vss, pt c/o lt ear pain and headache, 02/16 pain, labs drawn by tech, pt awaiting provider evaluation, call escamilla within reach, will continue to monitor
[2023-08-31 17:32] LABS: Alanine Aminotransferase 42 U/L (0-40); Albumin Level 4.1 g/dL (3.5-5.0); Alkaline Phosphatase 78 U/L (39-117); Anion Gap 14 (12-20); Aspartate Amino Transferase 23 U/L (5-37); Bilirubin Total 0.6 mg/dL (0.0-1.0); Blood Urea Nitrogen 9 mg/dL (9-16); Calcium 9.4 mg/dL (8.4-10.2); Carbon Dioxide 27 mmol/L (22-29); Chloride 104 mmol/L (96-108); Creatinine Clr Calc Pharmacy 112.4; Estimated Glomerular Filt Rate > 60; Glucose Random 206 mg/dL (60-115); Sodium 141 mmol/L (135-145); Total Protein 7.7 g/dL (6.5-8.0)
[2023-08-31 17:55] LABS: Influenza A PCR NEGATIVE (Negative); Influenza B PCR NEGATIVE (Negative); Resp Syncy Virus RNA Qual PCR NEGATIVE (Negative); SARS COV2 PCR INHOUSE NEGATIVE (Negative)
[2023-08-31 18:33] VITALS: BP 137/96; PULSE 87; RESP 18; O2SAT 96
[2023-08-31] MEDS: traMADoL HCL 50 MG TABLET PO (20:48)
[2023-08-31] MEDS: dexAMETHasone sod phosphate 10 MG/ML VIAL IM (20:48)
[2023-08-31 21:23] VITALS: BP 153/87; PULSE 70; RESP 18; TEMP 37.1; O2SAT 97
[2023-09-11 16:32] LABS: Dexamethasone <20 ng/dL
== END 2023-08-31 21:25 | disposition home or self-care (01) ==
PROVIDERS: Physician Assistant; Physician Assistant Medical; Emergency Provider Emergency Medicine
DX: H60.92 Unspecified otitis externa, left ear (principal); J02.0 Streptococcal pharyngitis; Z11.52 Encounter for screening for COVID-19; Z20.828 Contact with and (suspected) exposure to other viral communicable diseases
CPT/HCPCS: 0241U; 36415; 80053; 80299; 85025; 96372; 99284; J1100

== ENCOUNTER 2023-09-04 11:44 | Emergency (ER) | payer OTHER, SELFPAY ==
[2023-09-04 11:50] VITALS: BP 143/103; PULSE 79; RESP 16; TEMP 35.8; O2SAT 97; BMI 35.4
--- NOTE | 2023-09-04 11:51 | ED.GENADULT ---
HPI - General Adult General Chief complaint: Ear Problems Stated complaint: Pain in ear & L side of face Time Seen by Provider: 09/04/23 13:58 Source: patient and family Mode of arrival: ambulatory Limitations: no limitations History of Present Illness HPI narrative: 43-year-old male presents to the emergency department, with his , for complaints of left-sided numbness, paralysis, and left ear pain. He reports that he was evaluated here on both 08/29 and 08/30 for similar pains. He reports he had a CT scan of his head and neck which showed no evidence of injury or stroke. He was ultimately diagnosed with a strep infection as well as otitis externa and started on antibiotics. He reports he has 3 days left to complete the antibiotics that he has been taking them as prescribed. He reports his pain has not improved over the last several days. He reports that he attempted to get into an ENT specialist but has not been able to at this time. He denies any new paresthesias, weakness, change in gait range of motion, fever, chills, or recent trauma. Pertinent positives and negatives discussed in HPI Related Data Previous Rx's Medication Instructions Recorded acetaminophen 500 mg tablet 1,000 mg (2 x 500 mg) PO QID PRN 02/20/21 (Tylenol Extra Strength) fever or pain #14 tabs diazepam 5 mg tablet (Valium) 5 mg PO TID PRN muscle spasm #14 02/20/21 tabs ibuprofen 800 mg tablet 800 mg PO Q8H PRN pain #14 tabs 02/20/21 lidocaine HCl 4 % topical cream 1 appl topical BID PRN pain #120 02/20/21 (Aspercreme (lidocaine HCl)) grams oxycodone 5 mg tablet 5 mg PO Q6H PRN pain #14 tabs 02/20/21 amoxicillin 875 mg tablet 875 mg PO BID 10 days #20 tabs 08/30/23 doxycycline hyclate 100 mg tablet 100 mg PO BID 7 days #14 tabs 08/30/23 ciprofloxacin HCl 0.2 % ear drops 5 drp otic (ear) left Q12H 7 days 08/31/23 in a dropperette #14 ea tramadol 50 mg tablet 50 mg PO Q6H PRN pain #15 tabs 08/31/23 gabapentin 100 mg capsule 100 mg PO TID #14 caps 09/04/23 prednisone 50 mg tablet 50 mg PO DAILY 5 days #5 tabs 09/04/23 Allergies Allergy/AdvReac Type Severity Reaction Status Date / Time Penicillins [PENICILLINS] Allergy Unknown UNKNOWN Verified 09/04/23 11:53 Review of Systems Review of Systems: Yes all other systems are reviewed and are negative [facility] Past Medical History Medical History Emufw-Shbkdhujg-Ymgrw (WPW) syndrome Surgical History H/O cardiac radiofrequency ablation Social History Social History Alcohol intake: unknown Patient Tobacco Use Status: Never used Tobacco Advance Directives: No Physical Exam ED Vital Signs: Vital Signs - 24 hr 09/04/23 11:50 Temperature 96.4 F L Pulse Rate 79 Respiratory Rate 16 Blood Pressure 143/103 H Pulse Oximetry 97 Oxygen Delivery Method Room Air BMI result Body Mass Index 35.4 Nursing notes and vital signs reviewed. GENERAL APPEARANCE: A&0 x 4, generally well appearing, no acute distress HENMT: Normal to inspection, atraumatic. Facial asymmetry noted with left-sided paralysis. Normal external ears, nose, and oropharynx clear. EYE: PERRLA, EOM intact, structures appear normal NECK: Supple without stiffness or restricted ROM. HEART: Normal rate and regular rhythm, normal S1/S2, no M/R/G LUNGS: LS CTA, moving air well. Able to speak in complete sentences. No crackles, wheezes, or rhonchi auscultated BACK: No CVAT, no obvious deformity EXTREMITIES: Moving all extremities without difficulty. Normal capillary refill. NEUROLOGICAL: Alert and oriented, moving all 4 extremities with equal strength. CN not formally tested but appearing grossly intact. Observed to ambulate with normal gait. Cognition normal SKIN: Warm and dry without any lesions, rash, or visible sores Course Course Course Narrative: RME:?43 yo male here for eval of left facial numbness/ pain and left ear pain x2 weeks. diagnosed with otitis externa, strep and sinusitis after being evaluated in twice in our ED last week. reports continued left sided facial numbness and left ear pain. discharged home with pain medication and abx. taking abx as prescribed, has 3 more days left. Full HPI, ROS and PE to be performed by the primary ED provider. Medications Administered Discontinued Medications Generic Name Dose Route Start Last Admin Trade Name Kassidy PRN Reason Stop Dose Admin Gabapentin 100 mg 09/04/23 14:20 09/04/23 14:34 Gabapentin 100 Mg Capsule PO 09/04/23 14:21 100 mg ONCE ONE Administration Prednisone 60 mg 09/04/23 14:20 09/04/23 14:34 Prednisone 20 Mg Tablet PO 09/04/23 14:21 60 mg ONCE ONE Administration Medical Decision Making Medical Decision Making MDM Narrative: Old records reviewed for previous imaging, lab studies, ECGs, and notes. Blood work and CTA from 08/09 showing no evidence of acute infection, mastoiditis, or CVA. Patient was assessed the emergency department with no acute distress or toxicity noted. Patient's symptoms appear consistent with Figueroa's palsy and there is question of left-sided cholesteatoma on ear exam which could be causing edema and compression the facial nerves. Gabapentin and prednisone given here in the emergency department for management of pain and inflammation prescription sent to patient's preferred pharmacy. Patient educated to follow-up with ENT regarding question of cholesteatoma with contact information provided. Patient is safe for discharge at this time with plan for [id number] Tylenol and/or NSAID such as ibuprofen or naproxen for fever/discomfort with dosing as per packaging. HPI, PE, diagnostics, and plan discussed with patient and family with no unanswered questions at this time. Strict return precautions given to return to the emergency department with new, worsening, or concerning emergent symptoms. Recommended to follow-up with there primary care provider in 24-48 hours for further treatment and management. Differential Diagnosis Differential Diagnoses: The differential diagnosis associated with the presentation includes But not limited to otitis media, otitis externa, cholesteatoma, trigeminal neuralgia, Figueroa's palsy, CVA, TMJ, mastoiditis, sepsis, malignancy Independent Historian Clinical information obtained from an independent historian. History obtained from or confirmed by: Spouse Discharge Plan Discharge Clinical Impression: Figueroa's palsy, Cholesteatoma Patient Disposition: Home, Self-Care Instructions: Figueroa Palsy (ED) Additional Instructions: Your seen in the emergency department for concerns of left-sided facial paralysis and pain. Steroids and gabapentin were given to you here in the emergency department and prescriptions for both medications were sent to your preferred pharmacy. Your ear exam does not show any overt infection at this time but there is question of a cholesteatoma and you need to follow-up with ear nose and throat with contact information provided. You are safe for discharge at this time with plan for management of fever or discomfort with [id number] Tylenol and/or NSAID such as ibuprofen or naproxen with dosing as per packaging. Please return to the emergency department with new, worsening, or concerning emergent symptoms. Recommended to follow-up with your primary care provider in 24-48 hours for further treatment and management. Thank you for choosing [facility]. Prescriptions: New gabapentin 100 mg capsule 100 mg PO TID Qty: 14 0RF prednisone 50 mg tablet 50 mg PO DAILY 5 Days Qty: 5 0RF No Action diazepam [Valium] 5 mg tablet 5 mg PO TID PRN (Reason: muscle spasm) Qty: 14 0RF lidocaine HCl [Aspercreme (lidocaine HCl)] 4 % cream 1 appl topical BID PRN (Reason: pain) Qty: 120 0RF ibuprofen 800 mg tablet 800 mg PO Q8H PRN (Reason: pain) Qty: 14 0RF acetaminophen [Tylenol Extra Strength] 500 mg tablet 1,000 mg PO QID PRN (Reason: fever or pain) Qty: 14 0RF oxycodone 5 mg tablet 5 mg PO Q6H PRN (Reason: pain) Qty: 14 0RF amoxicillin 875 mg tablet 875 mg PO BID 10 Days Qty: 20 0RF doxycycline hyclate 100 mg tablet 100 mg PO BID 7 Days Qty: 14 0RF ciprofloxacin HCl 0.2 % dropperette 5 drp otic (ear) left Q12H 7 Days Qty: 14 0RF tramadol 50 mg tablet 50 mg PO Q6H PRN (Reason: pain) Qty: 15 0RF Referrals: Houston Acosta [Physician] - Stand Alone Forms: Work/School Release Print Language: Yoruba
[2023-09-04] MEDS: Gabapentin 100 MG CAPSULE PO (14:34)
[2023-09-04] MEDS: predniSONE 20 MG TABLET 60 MG PO (14:34)
[2023-09-04 16:21] VITALS: BP 143/103; PULSE 79; RESP 16; TEMP 35.8; O2SAT 97
== END 2023-09-04 16:21 | disposition home or self-care (01) ==
PROVIDERS: Emergency Provider Emergency Medicine
DX: G51.0 Bell's palsy (principal); H71.92 Unspecified cholesteatoma, left ear
CPT/HCPCS: 99282; 99283

== ENCOUNTER 2023-09-05 08:56 | Outpatient (AMB) | payer OTHER, SELFPAY ==
--- NOTE | 2023-09-05 08:25 | MHC.PC.OV ---
Vital Signs 09/05/23 09:07 Height 5 ft 9 in Weight 249 lb BMI 36.8 BP 135/90 H Blood Pressure Location Rt brachial Position Sitting Respiration 13 Pulse 84 Pulse Source Pulse Oximeter Temp 97.7 F Temp Source Temporal Artery Scan Pulse Oximetry (%) 96 Oxygen Delivery Method Room Air Intake Visit Reasons: Ed follow up/hypertension Intake Note: Patient is here as a new patient establishing care. Patient is accompanied by his Kindra. Patient has also had multiple ER visits regarding L ear pain x7 days. Patient has been on multiple medications amoxicillin, doxycycline, prednisone, etc with no relief. Patient reports the L ear still hurts today. Patient reports pain is localized in the ear. Patient reports the left side of his face is numb and he cannot drink from a straw. 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: No Accompanied by: Spouse Allergies Penicillins [PENICILLINS] Allergy (Unknown, Verified 09/05/23 09:13) UNKNOWN Medication List - Last Reconciled 09/05/23 by NAZIA Phillips- amoxicillin 875 mg PO BID 10 days ciprofloxacin HCl 0.2% 5 drps otic (ear) left Q12H 7 days doxycycline hyclate 100 mg PO BID 7 days gabapentin 100 mg PO TID prednisone 50 mg PO DAILY 5 days Tobacco use date assessed: 09/05/23 Dental Screening Dental Screen Date: 09/05/23 Did you have a dental visit in the last 12 months?: No Did you have a dental problem in the last 6 months where you did not have access to dental care?: No Was dental information given to patient?: Patient has dentist HPI HPI Comments History of Present Illness Details 43-year-old male with Wdkzz-Tjzuzctmn-Yyrpf and generalized anxiety disorder here today for hospital discharge follow up. Was seen at [facility] Emergency room 08/30/2023 and August 31 2023 and , His initial chief complaint was that of a left facial droop and lump in his neck. Stroke workup done including a CT angiography of the head and neck was unremarkable. Strep pharyngitis was detected. CT scan showed sinusitis. He was discharged home on amoxicillin and doxycycline. When he returned the next day he was diagnosed with a left otitis externa with purulent otorrhea. Cipro drops were added to his treatment regimen. He was treated with a 1 time dose of dexamethasone to help treat lymphadenopathy noted left postauricular. Labs done show a normal CBC, elevated random glucose of 206, elevated ALT at 42 During the work up his blood pressure initially was elevated. It resolved without any intervention. They recommended a follow up with primary care see. Returned 09/04/23 with same complaints. Dx w/ [place] Palsy. Concern for L Cholesteatoma; advised to fu with ENT ciprofloxacin HCl 0.2 % dropperette 5 drp otic (ear) left Q12H 7 Days Qty: 14 0RF tramadol 50 mg tablet 50 mg PO Q6H PRN (Reason: pain) Qty: 15 0RF amoxicillin 875 mg tablet 875 mg PO BID 10 Days Qty: 20 0RF doxycycline hyclate 100 mg tablet 100 mg PO BID 7 Days Qty: 14 0RF gabapentin 100 mg capsule 100 mg PO TID Qty: 14 0RF prednisone 50 mg tablet 50 mg PO DAILY 5 Days Qty: 5 0RF Presents today w/ his . States he was in his normal state of health until last week. When he started w/ pain on the top of his head. He did not make much of it. He then developed severe left ear pain followed by blister like lesions on the outside of the left ear and then subsequently a left facial droop. He also had associated vertigo. He is on day 6 of his dual antibiotic therapy. Reports he never had a sore throat. Continue to use the antibiotic eardrops. Denies any drainage from the ear. Today does not have any pain in the ear per se states rather it feels full and large. Left side of his face feels numb. His blood pressure was noted to be elevated. The reports he has longstanding history of hypertension with no treatment. Admits lots of anxiety. Not currently on any medication. Did have p.r.n. beta-suly at 1 time this was used for palpitations which occur during times of stress. He reports that it did not work so he is not taking it. He does have Pewte-Xflvkbfcr-Hggbt and did undergo an ablation. He has not active with Cardiology but admits that he should follow up. Paternal side of the family with high incidence of cardiac disease. His dad 1 year ago at age 60 from heart disease. Paternal aunt age 40 of an [place] and uncle age 52 of an [place]. also reports history of diabetes. Patient is very anxious at he will suffer a cardiac event or have diabetes. He has an appointment with ENT on Friday, Dr Acosta [facility] Medical History (Updated 09/05/23 @ 13:58 by Keisha Hayes [facility]) Palpitations Acute hemorrhoid Knee pain Back pain History of prediabetes Anxiety Zmzdh-Dnwnbfzsr-Flxpd (WPW) syndrome Surgical History H/O cardiac radiofrequency ablation Family History (Updated 09/05/23 @ 09:53 by Gela Mead CMA) Father Asthma Hypertension Diabetes Paternal Grandmother Hypertension Diabetes Brother Hypertension Social History (Updated 09/05/23 @ 09:18 by Gela Mead CMA) Household Members: Spouse and Children Household Members Other:: children x3, dog Housing: House 75 years or older and lives alone: No Alcohol intake: never Patient Tobacco Use Status: Never used Tobacco e-Cigarette/Vaping Use: Never Used service: No 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al status: employed 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 1. Little interest or pleasure in doing things: more than half the days 2. Feeling down, depressed, or hopeless: more than half the days 3. Trouble falling or staying asleep, or sleeping too much: nearly every day 4. Feeling tired or having little energy: more than half the days 5. Poor appetite or overeating: several days 6. Feeling bad about yourself - or that you are a failure or have let yourself or your family down: more than half the days 7. Trouble concentrating on things, such as reading the newspaper or watching television: nearly every day 8. Moving or speaking so slowly that other people could have noticed. Or the opposite - being so fidgety or restless that you have been moving around a lot more than usual: more than half the days 9. Thoughts that you would be better off or of hurting yourself in some way: not at all Total score: 17 Depression Screening Interpretation: Positive Depression Screening Follow-up: New Medication prescribed, Community Mental Health Worker F/U and Follow-up Visit Requested Depression Screening Done: Yes [id number] - PHQ-9 Billing: Yes Source: Developed by Drs. Kyrie Cisneros, Gabi Ribeiro, Neftali Davenport and colleagues, with an educational ba from [employer]. Thrive Questionnaire Date Thrive assessed: 09/05/23 I am a: Patient What is your living situation today?: I have a steady place to live Within the past 12 months, did the food you bought not last and you didn't have the money to get more?: Never true Within the past 12 months, did you worry whether your food would run out before you got money to buy more?: Never true Do you have trouble paying for medicines?: No Do you have trouble getting transportation to medical appointments?: No Do you have trouble paying your heating and electricity bill?: No Do you have trouble taking care of your child, family member or friend?: No Do you have trouble with day-to-day activities such as bathing, preparing meals, shopping, managing finances, etc.?: No Are you currently unemployed and looking for a job?: No Are you interested in more education?: No Please select the resources that you would like help with: None Currently or been in a relationship where the following occur: no concerns reported THRIVE Score: 0 AUDIT C Alcohol Use Questionnaire (AUDIT-C) 1. How often do you have a drink containing alcohol?: Never 3. How often do you have six or more drinks on one occasion?: Never Total Score: 0 Score Reviewed/Action Taken: Yes BIRDIE-7 AMB Questionnaire BIRDIE-7 Date BIRDIE - 7 assessed: 09/05/23 Feeling nervous, anxious, or on edge: 1 = Several days Not being able to stop or control worryin = More than half the days Worrying too much about different things: 2 = More than half the days Trouble relaxin = Several days Being so restless that it is hard to sit still: 2 = More than half the days Becoming easily annoyed or irritable: 1 = Several days Feeling afraid as if something awful might happen: 2 = More than half the days Total BIRDIE-7 score (0-4 normal; 5-9 mild; 10-14 moderate; 15-21 severe): 11 Source: Developed by Drs. Kyrie Cisneros, Gabi Ribeiro, Neftali Davenport and colleagues, with an educational ba from [employer]. BIRDIE-7 Assessment Billing BIRDIE-7 Assessment Tool: BIRDIE-7 Assessment 65198 Review of Systems Const All systems reviewed & are unremarkable except as noted in HPI and below Physical exam (Primary Care) Vital Signs: Last Vital Signs Temp 97.7 F 09/05/23 09:07 Pulse 84 09/05/23 09:07 Resp 13 09/05/23 09:07 BP 135/90 H 09/05/23 09:07 Pulse Ox 96 09/05/23 09:07 Oxygen Delivery Method Room Air 09/05/23 09:07 Care Plan Goal for BP management: Start hydrochlorothiazide BMI result Body Mass Index 36.8 BMI Assessment/Plan discussion: High BMI High, discussed plan: lifestyle Tobacco/Smoking Status: Tobacco use Status Tobacco use date assessed 09/05/23 09/05/23 09:22 Patient Tobacco Use Status Never used Tobacco 09/05/23 09:22 e-Cigarette/Vaping Use Never Used 09/05/23 09:22 PHQ-9: PHQ-9 Score PHQ-9: Total score 17 09/05/23 10:04 Depression Screening Interpretation: Positive Depression Screening Follow-up: New Medication prescribed, Community Mental Health Worker F/U and Follow-up Visit Requested Thrive Assessment: Date of Thrive Assessment Date Thrive assessed 09/05/23 09/05/23 09:22 Currently or been in a relationship where the following occur: no concerns reported Const Other: Awake alert oriented accompanied by Left-sided cranial nerve palsy with inability to wrinkle brow, drooping eyelid and an inability to close the eye, asymmetric smile, drooping corner of mouth, tongue deviation, slurred speech Left external ear with scabbed lesions, in the external auditory canal are crusted lesions, tympanic membrane is intact. Regular rate and rhythm Lung sounds clear to auscultation bilat Mood and affect flat, guarded, tearful at times Moves all extremities x4. Assessment and Plan Assessment & Plan (1) Hospital discharge follow-up: Code(s): Z09 - Encounter for follow-up examination after completed treatment for conditions other than malignant neoplasm (2) BIRDIE (generalized anxiety disorder): Comment: Start escitalopram 10 mg p.o. daily and refer to counseling. 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 The HPI and physical exam is concerning for [place]aban Asif syndrome. I have advised him to discontinue his antibiotics as he is taking them for 6 days. Discontinue antibiotic drops. Start valacyclovir 1 g every 8 hours x7 days, continue prednisone, continue gabapentin. Eye lubricant given to treat the left eye. Recommended an eye exam but he declined. Refer to neurology. Check labs. Code(s): G52.9 - Cranial nerve disorder, unspecified (4) Wqlpi-Gbnhnizrf-Iusub (WPW) syndrome: Comment: Refer to cardiology for chronic disease management. Code(s): I45.6 - Pre-excitation syndrome (5) Diabetes mellitus type 2 with complications: Comment: Hemoglobin A1c 6.8%. We will discuss treatments at follow up visit next week Code(s): E11.8 - Type 2 diabetes mellitus with unspecified complications (6) Hypertension: Comment: Start hydrochlorothiazide 12.5 mg daily. Bring back next week for a recheck Code(s): I10 - Essential (primary) hypertension Qualifiers: Hypertension type: primary hypertension Qualified Code(s): I10 - Essential (primary) hypertension Plan Labs from today show a hemoglobin A1c of 6.8%, negative HIV, negative syphilis, rest of results pending This note is constructed using voice recognition software. While every effort has been made to ensure accuracy in advisory software engineer, still errors may have been included Sometimes, these errors may affect the content or meaning of the given sentence . Total time spent caring for the patient today was 75 minutes. This includes time spent before the visit reviewing the chart, time spent during the visit, and time spent after the visit on documentation Orders: Orders Tick-borne Disease Molecular Today G52.9 - Cranial nerve disorder, unspecified HIV Ab/Ag Today G52.9 - Cranial nerve disorder, unspecified Herpes Simplex Virus Ab IgG Today G52.9 - Cranial nerve disorder, unspecified Hemoglobin A1c Today G52.9 - Cranial nerve disorder, unspecified Syphilis Screen Today G52.9 - Cranial nerve disorder, unspecified Referrals Counseling Referral F41.1 - Generalized anxiety disorder Cardiology Referral I45.6 - Pre-excitation syndrome Neurology Referral G52.9 - Cranial nerve disorder, unspecified Medications: New escitalopram oxalate (Lexapro) 10 mg PO DAILY 30 tabs 1RF hydrochlorothiazide 12.5 mg PO QAM 90 tabs 0RF artificial tears(hypromellose) 0.3% 1 drp ophthalmic-Left QID PRN 10 grams 0RF dry eyes valacyclovir 1,000 mg PO Q8H 7 days 21 tabs 0RF Changed From gabapentin 100 mg PO TID 14 caps 0RF To gabapentin 100 mg PO TID 30 days 90 caps 0RF Discontinued doxycycline hyclate Discontinued Reason: Doctor's Order 100 mg PO BID 7 days 14 tabs 0RF amoxicillin Discontinued Reason: Doctor's Order 875 mg PO BID 10 days 20 tabs 0RF ciprofloxacin HCl 0.2% Discontinued Reason: Doctor's Order 5 drps otic (ear) left Q12H 7 days 14 ea 0RF Coding Level of Care Code Est Pt Level 5 (12817) Diagnoses Hospital discharge follow-up Z09 BIRDIE (generalized anxiety disorder) F41.1 Cranial nerve palsy G52.9 Ubrwi-Ygvjjetbc-Xrepc (WPW) syndrome I45.6 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.8 Primary hypertension I10 Hypertension type: primary hypertension Additional Codes BIRDIE-7 Assessment Billing - BIRDIE-7 Assessment Tool: BIRDIE-7 Assessment [id number] ([id number])
[2023-09-05 09:07] VITALS: BP 135/90; PULSE 84; RESP 13; TEMP 36.5; O2SAT 96; BMI 36.8
== END 2023-09-05 10:12 | disposition home or self-care (01) ==
PROVIDERS: Visit Provider Nurse Practitioner Family
DX: E11.8 Type 2 diabetes mellitus with unspecified complications (principal); Z09 Encounter for follow-up examination after completed treatment for conditions other than malignant neoplasm; F41.1 Generalized anxiety disorder; G52.9 Cranial nerve disorder, unspecified; I45.6 Pre-excitation syndrome; I10 Essential (primary) hypertension
CPT/HCPCS: 96127; 99215

== ENCOUNTER 2023-09-05 10:01 | Outpatient (REF) | payer OTHER, SELFPAY ==
[2023-09-05 11:52] LABS: Estimated Average Glucose 148 mg/dL; Hemoglobin A1c % 6.8 % (<6.0)
[2023-09-05 12:12] LABS: HIV AB/AG Nonreactive (Nonreactive); HIV Num 1 0.07 S/CO (0.00-0.99); Syphilis Screen Nonreactive (Nonreactive)
[2023-09-06 15:48] LABS: A. Phagocytphilium DNA,RT-PCR NOT DETECTED (NOT DETECTED); Babesia Microti DNA, RT-PCR NOT DETECTED (NOT DETECTED); Borrelia Miyamotoi,DNA RT-PCR NOT DETECTED (NOT DETECTED); E.Chaffeensis DNA RT-PCR NOT DETECTED (NOT DETECTED); Lyme(Borrelia ssp)DNA RT-PCR NOT DETECTED (NOT DETECTED)
[2023-09-08 18:27] LABS: Herpes Simplex Type 1 IgG <0.90 index
== END 2023-09-05 10:02 | disposition home or self-care (01) ==
LOC: HO.WFDLDS 10:01
PROVIDERS: Visit Provider Nurse Practitioner Family
DX: G52.9 Cranial nerve disorder, unspecified (principal)
CPT/HCPCS: 36415; 83036; 86695; 86696; 86780; 87389; 87468; 87469; 87478; 87484; 87798

== ENCOUNTER 2023-09-10 10:05 | Outpatient (AMB) | payer OTHER, SELFPAY ==
[2023-09-10 10:15] VITALS: BP 128/80; PULSE 75; O2SAT 96; BMI 36.3
--- NOTE | 2023-09-10 10:15 | A.OFFVIS_ITS ---
Intake Vital Signs 09/10/23 10:15 Height 5 ft 9 in Weight 246 lb BMI 36.3 BP 128/80 Blood Pressure Location Rt brachial Position Sitting Pulse 75 Pulse Source Pulse Oximeter Pulse Oximetry (%) 96 Oxygen Delivery Method Room Air Intake Visit Reasons: INP-Cranial nerve disorder Intake Note: patient presents for nerve disorder. about 2 weeks ago my ear started to hurt and then took over my nerves on my left side of face. Allergies Penicillins [PENICILLINS] Allergy (Unknown, Verified 09/10/23 10:18) UNKNOWN Medication List - Last Reconciled 09/10/23 by Tere Cornejo, NAZIA alprazolam 0.25 - 0.5 mg orally 1 tab 30 minutes prior to MRI, october repeat x's 1; 1 day artificial tears(hypromellose) 0.3% 1 drp ophthalmic-Left QID PRN escitalopram oxalate (Lexapro) 10 mg PO DAILY gabapentin 100 mg PO TID 30 days hydrochlorothiazide 12.5 mg PO QAM prednisone 50 mg PO DAILY 5 days valacyclovir 1,000 mg PO Q8H 3 days HPI HPI Comments History of Present Illness Details 43-yr-old male presents for new pt evalu ation of left facial weakness. Pt is accompanied by his . PMH is significant for: anxiety, HTN. Chicken pox as a child. Recent work-up revelaed- pre-diabetes. Pt reports 2 weeks ago he started having a left sided headache- a line of pain running from the mid-frontal (w/in the hairline) to the left upper back of head. The headache lasted 3-4 days. Then he started having left ear pain, external ear swelling, left inner/external ear blisters, left postauricular swollen lymph nodes x's another 3 days. The pain was severe, prevented him from sleeping. He was hesitant to go to urgent care. Then he developed left facial upper and lower facial weakness and odd sensation, as well left eye twitching and blurry vision, head felt cloudy and felt off-balance, altered taste. At this point, on 08/30/23, he went to [facility]. He was started on oral ABTs- Doxycycline and Amoxicillin- for strep pharyngitis. At that time, he denies sore throat, fever. The next day, he went back to the ER as the ear pain was more severe, he was given dexamethasone and started on Cipro ear gtts and Tramadol. He then presented back to the ER, as his pain and facial weakness was not improving, and at that time, he was started on Prednisone and Gabapentin. Then he saw PCP on , Rolo YEUNG, who was concerned that pt did have a varicella/zoster infection, and she started pt on Valcyclovir 1 gm tid x's 7 days and advised him to continue the Prednisone 50mg to complete 5 days, and also to stop all the ABTs. Also to start tear gtts. He was supposed to see Dr Acosta, however the office did not take his insurance so he has not seen ENT yet. Since Friday, he is starting to feel better. He states that the blurry is a bit better, the pain is reduced, the facial strength is better- but nothing has fully resolved. Left hearing is still like he is under water. His altered taste sensation persists. He still has a very dry mouth. Can have left facial twitch ing. The cloudy head feeling and the balance is a bit better. Pt does also endorse: Sleep difficulties, fragmented sleep, snoring, daytime sleepiness. Pertinent denials include: Throat pain Dysphagia Dizziness Previous headaches. Previous/recuurent ear infections. Previous known HSV infection, Shingles. Recent facial/head injuries. Recent travel. 08/30/23, CT/CT head/brain wo IV con IMPRESSION: -No acute intracranial pathology. -Pansinus mucosal disease. 07/01/22, CT/CT angio head neck IMPRESSION: CTA head demonstrates no large vessel occlusion, saccular aneurysm, or dissection. CTA neck demonstrates no hemodynamically significant stenosis, dissection, or aneurysm. 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 H HIV 1&2 Ab/P24 Ag 4thGn Nonreactive [facility] Medical History (Updated 09/10/23 @ 22:32 by NAZIA Martin) Palpitations Acute hemorrhoid Knee pain Back pain History of prediabetes Anxiety Zglsm-Tulyfnbsv-Azhxa (WPW) syndrome Surgical History H/O cardiac radiofrequency ablation Family History Father Asthma Hypertension Diabetes Paternal Grandmother Hypertension Diabetes Brother Hypertension Social History Household Members: Spouse and Children Household Members Other:: children x3, dog Housing: House 75 years or older and lives alone: No Alcohol intake: never Patient Tobacco Use Status: Never used Tobacco e-Cigarette/Vaping Use: Never Used service: No 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al status: employed 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 Left external ear- small scabbed lesions Left external ear canal: erythema, no drainage. Left TM- intact. No exudate/purulent effusion noted. Eyes Pupils: Equal, round and reactive pupils present Resp Effort & Inspection: normal respiratory effort and able to speak in complete sentences Neuro Other: Left upper and lower facial weakness w/ left eyebrow, eyelid, left cheek, mouth droop- visible at rest. Unable to fully close left eye. Left tongue drooped. Asymmetric palate elevation. Left lateral tongue weakness Decreased left facial sensation. Mallampatti stage IV General: patient oriented x3 Cranial nerves: Yes Equal, round and reactive pupils present, Yes Bilaterally intact EOM present and Yes Nystagmus not present Cognition (Neuro): normal cognition Gait exam (Neuro): Normal gait present Motor exam (neuro): 5/5 motor strength present throughout Deep tendon reflexes (DTR's): Right triceps reflex intensity grade: 2+, Left triceps reflex intensity grade: 2+, Rt Biceps (C5, C6): 2+, Left biceps reflex intensity grade: 2+, Right brachioradialis reflex intensity grade: 2+, Left brachioradialis reflex intensity grade: 2+, Right patellar reflex intensity grade: 2+ and Left patellar reflex intensity grade: 2+ Coordination: zalfbs-ax-vmmz test normal, tandem gait normal and Romberg test negative Pupils: Normal pupillary reactivity/response: bilateral Psych Appearance: grossly normal Mental Status: mental status grossly normal Speech and movement: Normal speech and movement present Affect: normal affect Attitude: cooperative Thought process: Normal thought process present Assessment & Plan Assessment & Plan (1) Weakness on left side of face: Code(s): R29.810 - Facial weakness (2) Cranial nerve palsy: Code(s): G52.9 - Cranial nerve disorder, unspecified (3) Snoring: Code(s): R06.83 - Snoring (4) Sleep difficulties: Code(s): G47.9 - Sleep disorder, unspecified (5) Excessive daytime sleepiness: Code(s): G47.19 - Other hypersomnia Plan Pt's presentation does raise suspicion for [place]pe Asif Syndrome, however as pt has dry mouth, left palatal and lingual weakness in addition to left upper and lower facial weakness and decreased sensation, altered taste, which raises suspicion for not only CN VII involvement, but also CN IX, X, XII. Thus, pt is advised to undergo urgent brain MRI w/ IACs w/wo to ensure no intracranial process accounting not only for but also which raises suspicion for additional CN involvement Reviewed PCP, ER notes, imaging, and labs. Results notable for + HSV 2, however this does not confirm active vs past infection. Pt does endorse a h/o chicken pox dz. Although denies known h/o HSV infections. Unfortunately, pt's vesicular lesions in left ear are dry and scabbed- doubtful these could be cultured at this point. Note, on literature review, there is at least one case study w/ Inderjit Maurilio presentation w/ HSV-2 etiology. Continue Valcyclovir 1gm q 8hrs x's 10 days total- I did send additional 3 day supply. Continue tear gtts. Patch eye w/ gauze and paper tape while sleeping. Encouraged pt to do facial exercises. Will request ENT consult. Pt advised to undergo HST to assess for sleep apnea. Follow-up in 2-3 weeks or sooner prn. 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
== END 2023-09-10 11:42 | disposition home or self-care (01) ==
LOC: HO.HSMS 10:05
PROVIDERS: Visit Provider Nurse Practitioner Family
DX: R29.810 Facial weakness (principal); G52.9 Cranial nerve disorder, unspecified; R06.83 Snoring; G47.9 Sleep disorder, unspecified; G47.19 Other hypersomnia
CPT/HCPCS: 99204

== ENCOUNTER → 2023-09-10 10:05 | Outpatient (BNVA) | payer OTHER, SELFPAY | PROVIDERS: Visit Provider Nurse Practitioner Family | DX: R29.810 Facial weakness (principal); G52.9 Cranial nerve disorder, unspecified; R06.83 Snoring; G47.19 Other hypersomnia | CPT/HCPCS: 99202 ==

== ENCOUNTER 2023-09-22 11:26 | Outpatient (AMB) | payer OTHER, SELFPAY ==
[2023-09-22 11:34] VITALS: BP 120/62; PULSE 62; O2SAT 98; BMI 35.9
--- NOTE | 2023-09-22 11:34 | A.OFFPC_ITS ---
Vital Signs 09/22/23 11:34 Height 5 ft 9 in Weight 243 lb 4 oz BMI 35.9 BP 120/62 Pulse 62 Pulse Source Pulse Oximeter Pulse Oximetry (%) 98 Oxygen Delivery Method Room Air Intake Visit Reasons: f/u cranial nerve palsy Intake Note: Patient is here to follow up on cranial nerve palsy. 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 ENT not covered by insurance Mild pain only. Taking Jon 100mg BID. It makes him sweaty so does not like it. Does not feel he needs it. HTN - tolerating HCTZ w/o side effect. BP now at goal. BIRDIE improved w/ lexapro, taking as directed. Referred to counseling. DM2 - new dx. Interested in education and referral for DM eye exam. [facility] Medical History (Updated 09/22/23 @ 12:10 by SUSIE Phillips) Palpitations Acute hemorrhoid Knee pain Back pain History of prediabetes Anxiety Qxbam-Mqystmekn-Lbqmo (WPW) syndrome Surgical History H/O cardiac radiofrequency ablation Family History Father Asthma Hypertension Diabetes Paternal Grandmother Hypertension Diabetes Brother Hypertension Social History Household Members: Spouse and Children Household Members Other:: children x3, dog Housing: House 75 years or older and lives alone: No Alcohol intake: never Patient Tobacco Use Status: Never used Tobacco e-Cigarette/Vaping Use: Never Used service: No 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al status: employed 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 Kyrie Cisneros, Gabi Ribeiro, Neftali Davenport and colleagues, with an educational ba from [employer]. Physical exam (Primary Care) Vital Signs: Last Vital Signs Pulse 62 09/22/23 11:34 BP 120/62 09/22/23 11:34 Pulse Ox 98 09/22/23 11:34 Oxygen Delivery Method Room Air 09/22/23 11:34 BMI result Body Mass Index 35.9 Tobacco/Smoking Status: Tobacco use Status Tobacco use date assessed 09/22/23 09/22/23 11:37 Patient Tobacco Use Status Never used Tobacco 09/22/23 11:37 e-Cigarette/Vaping Use Never Used 09/22/23 11:37 Thrive Assessment: Date of Thrive Assessment Date Thrive assessed 09/05/23 09/22/23 11:37 Const Other: Awake alert oriented accompanied by Left-sided cranial nerve palsy much improved, only residual at this time is asymmetric smile, drooping corner of mouth EAC and TM intact and clear bilat Regular rate and rhythm Lung sounds clear to auscultation bilat Mood and affect flat, smiles and jokes Moves all extremities x4. Assessment and Plan Assessment & Plan (1) Diabetes mellitus type 2 with complications: Comment: Hemoglobin A1c 6.8%. Start Metformin ER 500mg QPM Referred for DME & Education Recheck HgA1c in 3 months (12/2023) Code(s): E11.8 - Type 2 diabetes mellitus with unspecified complications (2) Hypertension: Comment: At goal < 130/80 on hydrochlorothiazide 12.5 mg daily. Continue Code(s): I10 - Essential (primary) hypertension Qualifiers: Hypertension type: primary hypertension Qualified Code(s): I10 - Essen tial (primary) hypertension (3) BIRDIE (generalized anxiety disorder): Comment: Doing well on escitalopram 10 mg p.o. daily Continue referred to counseling. Bring back in about 3 weeks to eval effectiveness Code(s): F41.1 - Generalized anxiety disorder (4) Cranial nerve palsy: Comment: much improved since last visit s/p prednisone and Valacylovir I would like him to taper off Gabapentin 100mg which he is taking BID Take 1 tab QD x 1 week then stop. Cont fu with Neuro Code(s): G52.9 - Cranial nerve disorder, unspecified Plan This note is constructed using voice recognition software. While every effort has been made to ensure accuracy in test desk trouble locator, still errors may have been included Sometimes, these errors may affect the content or meaning of the given sentence . Total time spent caring for the patient today was 45 minutes. This includes time spent before the visit reviewing the chart, time spent during the visit, and time spent after the visit on documentation Orders: Referrals Diabetes Education Referral E11.8 - Type 2 diabetes mellitus with unspecified complications Ophthalmology Referral E11.8 - Type 2 diabetes mellitus with unspecified complications, I10 - Essential (primary) hypertension Medications: New metformin ER 500 mg PO QPM 90 tabs 0RF Discontinued gabapentin Discontinued Reason: Doctor's Order 100 mg PO TID 30 days 90 caps 0RF alprazolam Discontinued Reason: Patient Completed Course (1 - 2 x 0.25 mg) 0.25 - 0.5 mg orally 30 minutes prior to MRI, may repeat dose up to 0.5mg x's 1; (max 1 mg) 1 day 4 tabs 0RF MDD 4 TABS Patient Instructions: RTO in 3 weeks to f/u HTN and BIRDIE in setting of tapering off Gabapentin Coding Level of Care Code Est Pt Level 5 (54041) Diagnoses 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.8 Primary hypertension I10 Hypertension type: primary hypertension BIRDIE (generalized anxiety disorder) F41.1 Cranial nerve palsy G52.9
== END 2023-09-22 12:20 | disposition home or self-care (01) ==
PROVIDERS: Visit Provider Nurse Practitioner Family
DX: E11.8 Type 2 diabetes mellitus with unspecified complications (principal); I10 Essential (primary) hypertension; F41.1 Generalized anxiety disorder; G52.9 Cranial nerve disorder, unspecified
CPT/HCPCS: 99215

== ENCOUNTER 2023-09-24 15:54 | Outpatient (AMB) | payer OTHER, SELFPAY ==
--- NOTE | 2023-09-24 15:53 | A.OFFVIS_ITS ---
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: Follow up Cranial nerve disorder - Confirmed Intake Note: Patient following up. no issues or concerns everything is gong good. Allergies Penicillins [PENICILLINS] Allergy (Unknown, Verified 09/22/23 11:50) UNKNOWN HPI HPI Comments History of Present Illness Details 43-yr-old male presents for f/u televid eo visit via [employer]. Pt denies any significant interval medical changes. However he has been started on metformin. He has been scheduled for sleep study in early October. 09/17/2023, Brain MRI w/wo, showed mild m ucosal thickening in the maxillary sinuses as well as bilateral ethmoids. Otherwise unremarkable brain MRI, normal 7th and 8th nerve complexes, clear mastoids. He did not have ENT consult. He did complete valacyclovir and prednisone. He continues on gabapentin, was told to continue for a few more days. Pt reports his left facial facial pain is better. Still has some left internal ear pain. Left facial weakness is improving. He is doing facial exercises. [facility] Medical History (Updated 09/24/23 @ 16:35 by NAZIA Martin) Palpitations Acute hemorrhoid Knee pain Back pain History of prediabetes Anxiety Wzuef-Cfmkdjvbw-Aynlt (WPW) syndrome Surgical History H/O cardiac radiofrequency ablation Family History Father Asthma Hypertension Diabetes Paternal Grandmother Hypertension Diabetes Brother Hypertension Social History Household Members: Spouse and Children Household Members Other:: children x3, dog Housing: House 75 years or older and lives alone: No Alcohol intake: never Patient Tobacco Use Status: Never used Tobacco e-Cigarette/Vaping Use: Never Used service: No 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al status: employed 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 Code(s): G52.9 - Cranial nerve disorder, unspecified (2) Snoring: Code(s): R06.83 - Snoring (3) Sleep difficulties: Code(s): G47.9 - Sleep disorder, unspecified (4) Excessive daytime sleepiness: Code(s): G47.19 - Other hypersomnia Plan Reviewed brain MRI, mild maxillary and ethmoid inflammation, which would not account for patient's previous symptoms of left ear pain and left facial weakness. Continue facial exercises daily. If facial weakness does not improve, we will refer to PT. As patient does continue to have left inner ear pain, advised him to continue gabapentin until pain resolves in times 1-2 weeks thereafter. Reviewed that although not common, it is possible to have a recurrence of Dresden Asif syndrome. Patient advised to follow up with us PCV with any symptoms concerning for reoccurrence. Future considerations: Shingles vaccination. Home sleep study as scheduled. Telehealth Telehealth Location of provider rendering services: practice address Location of patient: address on file Patient Identification confirmed using: Name, : Yes Telehealth method: video Patient verbally consented to treatment: Yes Patient verbally consented to billing insurance company: Yes Patient informed of any privacy concerns related to visit: Yes Minutes spent on Phone/Video with Pt.: 9 Coding Level of Care Code Tele Est Pt Level 4 (44174) Diagnoses Cranial nerve palsy G52.9 Snoring R06.83 Sleep difficulties G47.9 Excessive daytime sleepiness G47.19
== END 2023-09-24 16:00 ==
LOC: HO.HSMS 15:54
PROVIDERS: Visit Provider Nurse Practitioner Family
DX: G52.9 Cranial nerve disorder, unspecified (principal); R06.83 Snoring; G47.9 Sleep disorder, unspecified; G47.19 Other hypersomnia
CPT/HCPCS: 99214

== ENCOUNTER → 2023-09-24 15:54 | Outpatient (BNVA) | payer OTHER, SELFPAY | PROVIDERS: Visit Provider Nurse Practitioner Family | DX: R29.810 Facial weakness (principal); I45.6 Pre-excitation syndrome; G52.9 Cranial nerve disorder, unspecified; E11.8 Type 2 diabetes mellitus with unspecified complications; I10 Essential (primary) hypertension ==

== ENCOUNTER 2023-10-07 17:14 | Emergency (ER) | payer OTHER, SELFPAY ==
--- NOTE | ~2023-10-07 | XR_ITS ---
EXAMINATION: XR chest 1V CLINICAL INFORMATION: Chest pain COMPARISON: 12/07/2020 TECHNIQUE: Single portable frontal view. Tubes and lines: None Lungs and pleura: Both lungs are clear. Heart and mediastinum: The mediastinum is within normal limits.. Bones/soft tissue: Skeletal structures included are normal for patient's age. XR/XR chest 1V IMPRESSION: No radiographic evidence of acute cardiopulmonary disease.
--- NOTE | 2023-10-07 17:16 | ECG_ITS ---
Test Reason : cp Blood Pressure : / mmHG Vent. Rate : 099 BPM Atrial Rate : 099 BPM P-R Int : 168 ms QRS Dur : 086 ms QT Int : 340 ms P-R-T Axes : 016 -07 017 degrees QTc Int : 436 ms Normal sinus rhythm Septal infarct , age undetermined ; could be related to body habitus and lead placement Abnormal ECG When compared with ECG of 30-AUG-2023 14:50, No significant change was found Referred By: Generic ED Physician Electronically Signed By:RAMESH ANAYA
[2023-10-07 17:39] VITALS: BP 161/93; PULSE 88; RESP 14; TEMP 36.6; O2SAT 97; BMI 36.6
--- NOTE | 2023-10-07 17:40 | ED_ITS ---
HPI - Chest Pain General Chief Complaint: Chest Pain Stated Complaint: chest pain/tingly Time Seen by Provider: 10/07/23 19:23 Source: patient Mode of arrival: ambulatory Limitations: no limitations History of Present Illness HPI narrative: [age] year with a past medical history hypertension, DM, WPW, and anxiety presents to the emergency department, with his , for complaints of chest pain beginning 45 minutes prior to arrival. States he had two episodes of dizziness and diaphoresis and felt as if he was going to pass out. States pain does not radiate. Denies shortness of breath, fevers, abdominal pain, n/v/d Pertinent positives and negatives discussed in HPI Related Data Previous Rx's ?Medication ?Instructions ?Recorded artificial tears(hypromellose) 0.3 1 drp ophthalmic-Left QID PRN dry 09/05/23 % eye gel eyes #10 grams hydrochlorothiazide 12.5 mg tablet 12.5 mg PO QAM #90 tabs 09/05/23 metformin 500 mg tablet,extended 500 mg PO QPM #90 tabs 09/22/23 release 24 hr bupropion HCl 150 mg 24 hr tablet, 150 mg PO QAM #30 tabs 10/08/23 extended release (Wellbutrin XL) escitalopram oxalate 10 mg tablet 10 mg PO DAILY #30 tabs 10/08/23 (Lexapro) hydrocortisone 2.5 % topical cream 1 appl VA BID-QID PRN hemorrhoids 10/08/23 with perineal applicator #30 grams hydrocortisone acetate 25 mg 25 mg VA BEDTIME #12 ea 10/08/23 rectal suppository (Anusol-HC) hydroxyzine HCl 25 mg tablet 25 mg PO BID PRN anxiety attack 10/08/23 #60 tabs witch kimmie 50 % topical pads 1 pad topical BID-QID PRN skin 10/08/23 (Tucks (witch kimmie)) irritation #100 ea Allergies Allergy/AdvReac Type Severity Reaction Status Date / Time Penicillins [PENICILLINS] Allergy Unknown UNKNOWN Verified 10/08/23 16:42 Review of Systems 2 Review of Systems: Yes all other systems are reviewed and are negative [facility] Past Medical History Medical History (Updated 10/08/23 @ 17:01 by Keisha Hayes, OFFICIAL GREETER-) Palpitations Acute hemorrhoid Knee pain Back pain History of prediabetes Anxiety Pzvws-Yccxhwcvi-Tkjxo (WPW) syndrome Surgical History H/O cardiac radiofrequency ablation Family History Family History Father Asthma Hypertension Diabetes Paternal Grandmother Hypertension Diabetes Brother Hypertension Social History Social History Household Members: Spouse and Children Household Members Other:: children x3, dog Housing: House 75 years or older and lives alone: No Alcohol intake: never Patient Tobacco Use Status: Never used Tobacco e-Cigarette/Vaping Use: Never Used service: No 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al status: employed 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 GENERAL APPEARANCE: A&0 x 4, generally well appearing, no acute distress HENMT: Normal to inspection, atraumatic, face symmetrical. Normal external ears, nose, and oropharynx clear. EYE: PERRLA, EOM intact, structures appear normal NECK: Supple without stiffness or restricted ROM. HEART: Normal rate and regular rhythm, normal S1/S2, no M/R/G LUNGS: LS CTA, moving air well. Able to speak in complete sentences. No crackles, wheezes, or rhonchi auscultated BACK: No CVAT, no obvious deformity EXTREMITIES: Moving all extremities without difficulty. Normal capillary refill. NEUROLOGICAL: Alert and oriented, moving all 4 extremities with equal strength. CN not formally tested but appearing grossly intact. Observed to ambulate with normal gait. Cognition normal SKIN: Warm and dry without any lesions, rash, or visible sores Course Reevaluation(s) Reevaluation #1: Patient was a sign-out for chronic intermittent chest pain. Patient has had this chest pain before in the past and has had normal trans echo in the past. Patient has a cardiology appointment. Patient presently asymptomatic. Patient's 1st troponin negative. Chest x-ray rest of labs normal. Patient is slightly hypokalemic. Patient agreeable to 2nd troponin but does not want to wait for results. Patient was signed against medical advice knowing risk of from leaving before 2nd troponin results. Patient agreeable to be called with troponin results and will come back to the ED immediately. Time: 22:22 Reevaluation #2: Patient 2nd troponin negative. Patient called with results. Patient doing fine at home. Patient iFormed to follow up with PCP. NOt suspecting PE, CHF, pneumonia, or pheumothorax. Time: 01:37 Medications Administered Discontinued Medications Generic Name Dose Route Start Last Admin Trade Name Freq PRN Reason Stop Dose Admin Potassium Chloride 40 meq 10/07/23 19:22 10/07/23 19:25 Potassium Chloride Er 20 Meq Tab.Er.Prt PO 10/07/23 19:23 40 meq ONCE ONE Administration Medical Decision Making Medical Decision Making MDM Narrative: Old records reviewed for previous imaging, lab studies, ECGs, and notes. Patient was assessed the emergency department with no acute distress or toxicity noted. EKG completed which I have independently interpreted normal sinus rhythm showing no signs of acute ischemia or ectopy. When compared to previous EKG done roughly 1 month ago no significant changes were noted. Patient's chest x-ray was also negative for acute findings, per my interpretation. Blood work showing no evidence of infection, anemia, or evidence of dehydration. Patient's potassium was low at 3.2 and he was given p.o. supplements. On reassessment, patient reports he feels significant relief of symptoms and believes he may been having a ?panic attack?. Patient educated to follow up with his primary care provider in addition to Cardiology for further evaluation and management. Patient is safe for discharge at this time with plan for ennf-dtq-wtqpupv Tylenol and/or NSAID such as ibuprofen or naproxen for fever/discomfort with dosing as per packaging. HPI, PE, diagnostics, and plan discussed with patient and family with no unanswered questions at this time. Strict return precautions given to return to the emergency department with new, worsening, or concerning emergent symptoms. Recommended to follow-up with there primary care provider in 24-48 hours for further treatment and management. Differential Diagnosis Differential Diagnoses: The differential diagnosis associated with the presentation includes But not limited to ACS, PE, CVA, anxiety, costochondritis, sepsis, malignancy Lab Data MDM Lab Attestation statement: I reviewed the patient's lab results. 10/07/23 18:27 10/07/23 18:27 Labs: Lab Results 10/07/23 10/07/23 Range/Units 18:27 22:19 WBC 6.7 (4.8-10.8) X10*3/uL RBC 4.73 (4.60-5.80) X10*6/uL Hgb 15.3 (14.0-18.0) g/dl Hct 40.4 L (42.0-52.0) % MCV 85.4 (80.0-98.0) fL MCH 32.3 (27.0-33.0) pg MCHC 37.9 H (31.0-36.0) g/dl RDW 12.2 (11.0-16.0) % Plt Count 166 (160-400) X10*3/uL MPV 9.3 L (9.4-12.4) fL Immature Gran % (Auto) 0.3 (0.0-0.4) % Neut % (Auto) 64.7 (45-73) % Lymph % (Auto) 24.1 (20-40) % Schley % (Auto) 9.3 (2-11) % Eos % (Auto) 1.0 (0-4) % Baso % (Auto) 0.6 (0-2) % Lymph # (Auto) 1.6 (1.2-4.9) X10*3/uL Schley # (Auto) 0.6 (0.1-1.2) X10*3/uL Eos # (Auto) 0.1 (0.0-0.4) X10*3/uL Baso # (Auto) 0.0 (0.0-0.2) X10*3/uL Abs Immat Gran (auto) 0.02 (0.00-0.03) X10*3/uL Absolute Neuts (auto) 4.3 (2.0-8.3) x10*3/uL Absolute Nucleated RBC 0.000 (0.0-0.012) X10*3/uL Nucleated RBC % (auto) 0.0 (0.0-0.2) /100WBC Smear Tech's Comments VERIFIED Sodium 139 (135-145) mmol/L Potassium 3.2 L (3.3-5.1) mmol/L Chloride 105 (96-108) mmol/L Carbon Dioxide 23 (22-29) mmol/L Anion Gap 14 (12-20) BUN 15 (9-16) mg/dL Creatinine 0.97 (0.5-1.4) mg/dL Estim Creat Clear Calc 121.4 Estimated GFR > 60 Random Glucose 122 H (60-115) mg/dL Calcium 8.8 D (8.4-10.2) mg/dL Magnesium 1.9 (1.6-2.6) mg/dL Total Bilirubin 0.8 (0.0-1.0) mg/dL AST 34 (5-37) U/L ALT 46 H (0-40) U/L Alkaline Phosphatase 89 (39-117) U/L Troponin I High Sens < 2.7 < 2.7 (<3.5-35.0) ng/L Total Protein 7.6 (6.5-8.0) g/dL Albumin 4.2 (3.5-5.0) g/dL Independent Interpretation I performed an independent interpretation of an: EKG and Plain X-Ray Independent Historian Clinical information obtained from an independent historian. History obtained from or confirmed by: Spouse External Record Review External record reviewed: Outpatient record and Prior outpatient labs Chronic Conditions Patient?s care impacted by: Diabetes and Hypertension Discharge Plan Discharge Clinical Impression: Acute hypokalemia, Chest pain Patient Disposition: Left Against Medical Advice Instructions: Chest Pain (ED), Potassium Content of Foods List (ED), Hypokalemia (ED), Panic Attack (ED) Additional Instructions: Return to the ED immediately for any chest pain, shortness of breath, weakness, dizziness, leg swelling, calf pain, coughing up blood, fever, chills, dizziness, chest pain/shortness breath on exertion, or any other concerning symptoms. Recommend calling your primary care provider for earlier appointment with threading machine tender. Prescriptions: No Action hydrochlorothiazide 12.5 mg tablet 12.5 mg PO QAM Qty: 90 0RF artificial tears(hypromellose) 0.3 % gel 1 drp ophthalmic-Left QID PRN (Reason: dry eyes) Qty: 10 0RF hydrocortisone acetate [Anusol-HC] 25 mg suppository 25 mg VA BEDTIME Qty: 12 0RF bupropion HCl [Wellbutrin XL] 150 mg tablet extended release 24 hr 150 mg PO QAM Qty: 30 1RF escitalopram oxalate [Lexapro] 10 mg tablet 10 mg PO DAILY Qty: 30 1RF hydrocortisone 2.5 % cream with perineal applicator 1 appl VA BID-QID PRN (Reason: hemorrhoids) Qty: 30 0RF hydroxyzine HCl 25 mg tablet 25 mg PO BID PRN (Reason: anxiety attack ) Qty: 60 0RF Tucks (witch kimmie) 50 % pads, medicated 1 pad topical BID-QID PRN (Reason: skin irritation) Qty: 100 0RF metformin 500 mg tablet extended release 24 hr 500 mg PO QPM Qty: 90 0RF Referrals: Keisha Hayes OFFICIAL GREETER-BC [Primary Care Provider] - Stand Alone Forms: Against Medical Advice Interventions: ED Discharge Assessment Last Done: 10/07/23 22:34 Discharge Date/Time: 10/07/23 22:35 Print Language: Thai
[2023-10-07 18:53] LABS: Alanine Aminotransferase 46 U/L (0-40); Albumin Level 4.2 g/dL (3.5-5.0); Alkaline Phosphatase 89 U/L (39-117); Anion Gap 14 (12-20); Aspartate Amino Transferase 34 U/L (5-37); Bilirubin Total 0.8 mg/dL (0.0-1.0); Blood Urea Nitrogen 15 mg/dL (9-16); Calcium 8.8 mg/dL (8.4-10.2); Carbon Dioxide 23 mmol/L (22-29); Chloride 105 mmol/L (96-108); Creatinine Clr Calc Pharmacy 121.4; Estimated Glomerular Filt Rate > 60; Glucose Random 122 mg/dL (60-115); Magnesium 1.9 mg/dL (1.6-2.6); Potassium 3.2 mmol/L (3.3-5.1); Sodium 139 mmol/L (135-145); Total Protein 7.6 g/dL (6.5-8.0)
[2023-10-07] MEDS: Potassium Chloride ER 20 MEQ TAB.ER.PRT 40 MEQ PO (19:25)
--- NOTE | 2023-10-07 19:26 | PC.NURSE ---
pt medicated in triage
[2023-10-07 19:41] LABS: Basophils Percent Auto 0.6 % (0-2); Eosinophils Absolute Auto 0.1 X10*3/uL (0.0-0.4); Hematocrit 40.4 % (42.0-52.0); Hemoglobin 15.3 g/dl (14.0-18.0); Imm Gran Abs Auto 0.02 X10*3/uL (0.00-0.03); Imm Gran Pct Auto 0.3 % (0.0-0.4); Lymphocytes Absolute Auto 1.6 X10*3/uL (1.2-4.9); Lymphocytes Percent Auto 24.1 % (20-40); Mean Corpuscular Hemoglobin 32.3 pg (27.0-33.0); Mean Corpuscular Volume 85.4 fL (80.0-98.0); Mean Platelet Volume 9.3 fL (9.4-12.4); Monocytes Absolute Auto 0.6 X10*3/uL (0.1-1.2); Monocytes Percent Auto 9.3 % (2-11); Neutrophils Absolute Auto 4.3 x10*3/uL (2.0-8.3); Neutrophils Percent Auto 64.7 % (45-73); Platelet Count 166 X10*3/uL (160-400); Red Blood Count 4.73 X10*6/uL (4.60-5.80); Red Cell Distribution Width 12.2 % (11.0-16.0); SCAN SMEAR FLAG 1; White Blood Count 6.7 X10*3/uL (4.8-10.8)
[2023-10-07 19:42] LABS: Mean Corpuscular HGB Conc 37.9 g/dl (31.0-36.0)
[2023-10-07 19:43] LABS: MANUAL DIFF FLAG SCAN
[2023-10-07 19:44] LABS: SLIDE REVIEW VERIFIED
[2023-10-07 21:22] LABS: Troponin-I High Sensitivity < 2.7 ng/L (<3.5-35.0)
[2023-10-07 22:06] VITALS: BP 147/91; PULSE 80; RESP 16; TEMP 36.8; O2SAT 95
[2023-10-07 22:34] VITALS: BP 147/91; PULSE 80; RESP 16; TEMP 36.8; O2SAT 95
[2023-10-07 22:46] LABS: Troponin-I High Sensitivity < 2.7 ng/L (<3.5-35.0)
== END 2023-10-07 22:35 | disposition left against medical advice (07) ==
PROVIDERS: Nurse Practitioner Family; Physician Assistant; Emergency Provider Student in an Organized Health Care Education/Training Program; PCP Nurse Practitioner Family
DX: R07.9 Chest pain, unspecified (principal); E87.6 Hypokalemia; I10 Essential (primary) hypertension; E11.9 Type 2 diabetes mellitus without complications
CPT/HCPCS: 36415; 71045; 80053; 83735; 84484; 85025; 93005; 99283; 99284

== ENCOUNTER → 2023-10-07 17:16 | Outpatient (BNV) | payer OTHER, SELFPAY | PROVIDERS: Emergency Provider Student in an Organized Health Care Education/Training Program; PCP Nurse Practitioner Family; Visit Provider Internal Medicine | DX: R94.31 Abnormal electrocardiogram [ECG] [EKG] (principal) | CPT/HCPCS: 93010 ==

== ENCOUNTER 2023-10-08 15:34 | Outpatient (AMB) | payer OTHER, SELFPAY ==
--- NOTE | 2023-10-08 15:31 | A.OFFPC_ITS ---
Intake Visit Reasons: Hemorrhoids Intake Note: Patient is prepared for the telehealth. Wine Steward/Stewardess Required: No Allergies Penicillins [PENICILLINS] Allergy (Unknown, Verified 10/08/23 16:42) UNKNOWN Medication List - Last Reconciled 10/08/23 by SUSIE Phillips artificial tears(hypromellose) 0.3% 1 drp ophthalmic-Left QID PRN escitalopram oxalate (Lexapro) 10 mg PO DAILY hydrochlorothiazide 12.5 mg PO QAM metformin ER 500 mg PO QPM Tobacco use date assessed: 09/22/23 Dental Screening Dental Screen Date: 09/05/23 HPI HPI Comments History of Present Illness Details Telehealth visit for CC: hemorrhoids, itchy. States he is not constipated. Used OTC Supps w/o relief. ED - this just started after taking lexapro Mood - BIRDIE/MDD has improved. However had panic attack. Went to ED at [facility] [place]. Workup reviewed. He self treated w/ xanax he had left over from MRI. + effect. wonders if he can have something PRN F - [facility] [place] ED work up reviewed. Left AMA. [facility] Medical History (Updated 10/08/23 @ 17:01 by SUSIE Phillips) Palpitations Acute hemorrhoid Knee pain Back pain History of prediabetes Anxiety Pnqnq-Jhrgcznya-Jcnxb (WPW) syndrome Surgical History H/O cardiac radiofrequency ablation Family History Father Asthma Hypertension Diabetes Paternal Grandmother Hypertension Diabetes Brother Hypertension Social History Household Members: Spouse and Children Household Members Other:: children x3, dog Housing: House 75 years or older and lives alone: No Alcohol intake: never Patient Tobacco Use Status: Never used Tobacco e-Cigarette/Vaping Use: Never Used service: No 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al status: employed 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 Kyrei Cisneros, Gabi Ribeiro, Neftali Davenport and colleagues, with an educational ba from [employer]. Physical exam (Primary Care) Tobacco/Smoking Status: Tobacco use Status Tobacco use date assessed 09/22/23 10/08/23 15:33 Patient Tobacco Use Status Never used Tobacco 10/08/23 15:33 e-Cigarette/Vaping Use Never Used 10/08/23 15:33 Thrive Assessment: Date of Thrive Assessment Date Thrive assessed 09/05/23 10/08/23 15:33 Telehealth Telehealth Telehealth Platform: Telephone Location of provider rendering services: practice address Location of patient: address on file Patient Identification confirmed using: Name, : Yes Telehealth method: voice only Patient verbally consented to treatment: Yes Patient verbally consented to billing insurance company: Yes Patient informed of any privacy concerns related to visit: Yes Minutes spent on Phone/Video with Pt.: 21 Assessment and Plan Assessment & Plan (1) BIRDIE (generalized anxiety disorder): Comment: Doing well on escitalopram 10 mg p.o. daily Continue referred to counseling. Add wellbutrin xl 150 mg QD to quell ED side effects and improve BIRDIE sx. Also add hydroxyzine 25mg po BID PRN anxiety Bring back in about 3 weeks to eval effectiveness Code(s): F41.1 - Generalized anxiety disorder (2) Hemorrhoid: Comment: advised to try epsom salt soaks RX sent for topical hydrocort cream, Supps and Tucks pads avoid constipation if no improvement or worsening can refer to GI Code(s): K64.9 - Unspecified hemorrhoids Qualifiers: Hemorrhoid type: unspecified Qualified Code(s): K64.9 - Unspecified hemorrhoids (3) Drug-induced erectile dysfunction: Comment: start wellbutrin xl 150mg po QAM Code(s): N52.2 - Drug-induced erectile dysfunction (4) Hospital discharge follow-up: Code(s): Z09 - Encounter for follow-up examination after completed treatment for conditions other than malignant neoplasm Plan: visit for chest pain r/t anxiety left AMA work up reviewed plan as above. Medications: New hydrocortisone acetate (Anusol-HC) 25 mg IL BEDTIME 12 ea 0RF hydrocortisone 2.5% 1 appl [place] BID-QID PRN 30 grams 0RF hemorrhoids witch kimmie 50% (Tucks (witch kimmie)) 1 pad topical BID-QID PRN 100 ea 0RF skin irritation bupropion HCl XL (Wellbutrin XL) 150 mg PO QAM 30 tabs 1RF hydroxyzine HCl 25 mg PO BID PRN 60 tabs 0RF anxiety attack Refilled escitalopram oxalate (Lexapro) 10 mg PO DAILY 30 tabs 1RF Patient Instructions: RTO SCHEDULED 10/28 SOONER NEEDED Coding Level of Care Code Tele Est Pt Level 3 (66014) Diagnoses BIRDIE (generalized anxiety disorder) F41.1 Hemorrhoids, unspecified hemorrhoid type K64.9 Hemorrhoid type: unspecified Drug-induced erectile dysfunction N52.2 Hospital discharge follow-up Z09
== END 2023-10-08 17:03 | disposition home or self-care (01) ==
LOC: HO.HMGFM 15:34
PROVIDERS: PCP Nurse Practitioner Family; Visit Provider Nurse Practitioner Family
DX: F41.1 Generalized anxiety disorder (principal); K64.9 Unspecified hemorrhoids; N52.2 Drug-induced erectile dysfunction; Z09 Encounter for follow-up examination after completed treatment for conditions other than malignant neoplasm
CPT/HCPCS: 99213

== ENCOUNTER → 2023-10-14 12:36 | Outpatient (REF) | payer OTHER, SELFPAY | LOC: HO.SL 12:36 | PROVIDERS: PCP Nurse Practitioner Family; Visit Provider Nurse Practitioner Family | DX: G47.33 Obstructive sleep apnea (adult) (pediatric) (principal); G47.19 Other hypersomnia; R06.83 Snoring | CPT/HCPCS: 95806 ==

== ENCOUNTER → 2023-10-14 12:57 | Outpatient (BNV) | payer OTHER, SELFPAY | PROVIDERS: PCP Nurse Practitioner Family; Visit Provider Psychiatry & Neurology Neurology | DX: G47.33 Obstructive sleep apnea (adult) (pediatric) (principal) | CPT/HCPCS: 95806 ==

== ENCOUNTER 2023-10-20 08:08 | Outpatient (AMB) | payer OTHER, SELFPAY ==
--- NOTE | 2023-10-20 08:53 | A.OFFVIS_ITS ---
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 External Tool Required: No Allergies Penicillins [PENICILLINS] Allergy (Unknown, Verified 10/08/23 16:42) UNKNOWN HPI Comprehensive Diabetes Asmnt Most Recent Diabetes Results: Creatinine 0.97 mg/dL (0.5-1.4) 10/07/23 Blood Urea Nitrogen 15 mg/dL (9-16) 10/07/23 Sodium 139 mmol/L (135-145) 10/07/23 Potassium 3.2 mmol/L (3.3-5.1) L 10/07/23 Chloride 105 mmol/L (96-108) 10/07/23 Carbon Dioxide 23 mmol/L (22-29) 10/07/23 Calcium 8.8 mg/dL (8.4-10.2) 10/07/23 AST 34 U/L (5-37) 10/07/23 ALT 46 U/L (0-40) H 10/07/23 Total Protein 7.6 g/dL (6.5-8.0) 10/07/23 Albumin 4.2 g/dL (3.5-5.0) 10/07/23 [facility] Medical History (Updated 10/08/23 @ 17:01 by Keisha Hayes, [facility]) Palpitations Acute hemorrhoid Knee pain Back pain History of prediabetes Anxiety Ckypb-Uuznuphro-Xfksh (WPW) syndrome Surgical History H/O cardiac radiofrequency ablation Family History Father Asthma Hypertension Diabetes Paternal Grandmother Hypertension Diabetes Brother Hypertension Social History Household Members: Spouse and Children Household Members Other:: children x3, dog Housing: House 75 years or older and lives alone: No Alcohol intake: never Patient Tobacco Use Status: Never used Tobacco e-Cigarette/Vaping Use: Never Used service: No 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al status: employed 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 Start Metformin ER 500mg QPM Referred for DME & Education Recheck HgA1c in 3 months (12/2023) Code(s): E11.8 - Type 2 diabetes mellitus with unspecified complications Plan: Diabetes self-management education and support participation record Assessment/scale: 1= needs instructed? 2= needs review? 3= comprehend keep point? 4= demonstrates understanding/ competent? NC= Not Covered Topics Learning Objective: Initial visit Initial or post srvc Initial or post srvc Initial or post srvc Initial or post srvc Initial or post srvc Post srvc Comments Pre Edu-assessment/plan Outcome or reassess Outcome or reassess Outcome or reassess Outcome or reassess Outcome or reassess Outcome or reassess Diabetes pathophysiology 1 Healthy eating 2 Being active 2 Taking medication 1 Monitoring glucose Acute complication Chronic complicated Lifestyle and healthy coping Diabetes distress in support ?Diabetes pathophysiology: ?Defined diabetes med identify own type of diabetes; list 3 options for treating diabetes Healthy eating: ?Described effect of type, amount and ?timing of food on blood glucose; list 3 methods for planning meal Being active: ?State effect of exercise on blood glucose level Taking medication: ?State effect of diabetes medications on diabetes; name diabetes medications taking, action and side effects Monitoring glucose: ?Identify recommended blood glucose targets and personal target Acute complication: ?List symptoms and treatment of hyper and hypoglycemia, DKA, sick day guidelines and guidelines for severe weather or situations of crisis and diabetes supply manage Chronic complication: ?To find the relationship of blood glucose levels to long- term complications of diabetes in screening and preventative measures Lifestyle and healthy coping: ?Described lifestyle and healthy coping strategies to rule out diabetes self-management Diabetes to stress and support: ?Recognize Diabetes to stress and be able to identified support options Learning objectives: The patient was provided with verbal and written education on the following topics as outlined below. The patient met all learning objectives and was able to verbalize understanding and provide teach back of education topics discussed . The patient was provided with the opportunity to ask questions and all questions were answered. 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 Pathophysiology How the body produces and uses insulin Identify type of DM Risk factors Signs of Diabetes Brief overview of Diabetes Management Monitoring blood sugar Following a meal plan Regular exercise Maintaining a healthy weight Taking medication as needed Members of the care team (PCP, RN, MA, RD, CDE, stone driller) Blood glucose monitoring When/how often to test Target blood sugar ranges Introduction to Nutrition Importance of healthy diet in managing DM Diet is personalized to individual preference Review patient?s regular diet/food preferences Who prepares meals/does food shopping/ Dining out?/ Barriers? How diet effects glucose Eating 3 balanced meals a day with small, healthy snacks between meals Review food groups Carbohydrates: What is a carbohydrate/Which food/food groups are considered carbohydrates Effect of carbohydrates on blood glucose Portion sizes Reading food labels Basic carb counting (if applicable per nursing assessment) Plate method Meal planning Recommendations: Follow plate method, consistent carbs and read nutritional labels. Smart Goal: Patient will reduce carbohydrate portion to see 45-60 g per meal Educational Materials: The patient was provided with the following written educational materials: Planning Healthy Meals Handout Patient Response to instructions: Comprehension of Instructions: Fair Readiness to make changes: Contemplation How confident they feel about making changes: Positive Patient Instructions: Include regular daily activity. ADA recommends 30 minutes of exercise 5 days a week. Weight loss talk to PCP or Band Saw Operator Cake Cutting before starting new plan. Test blood sugar as directed; Fasting and 2hpp largest meal. Watch trends in r esults. Utilize results and to assess how food, physical activity and medications affect blood sugar results. Bring glucometer or CGM to next visit. Be knowledgeable about diabetes medication, its action, side effects, efficacy, toxicity, prescribed dosage, appropriate timing and frequency of administration, effect of missed and delayed doses and instructions for storage, travel and safety. Problem solving techniques to monitor hypo/hyperglycemia episodes and treatments. Reduce risk reduction behaviors, smoking cessation, regular eye, foot and dental examinations. Coding Level of Care Code Est Pt Level 1 (64047) Diagnoses 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.8
== END 2023-10-20 08:55 | disposition home or self-care (01) ==
PROVIDERS: PCP Nurse Practitioner Family; Visit Provider Registered Nurse Diabetes Educator
DX: E11.8 Type 2 diabetes mellitus with unspecified complications (principal)

== ENCOUNTER → 2023-10-20 08:08 | Outpatient (BNVA) | payer OTHER, SELFPAY | PROVIDERS: PCP Nurse Practitioner Family; Visit Provider Registered Nurse Diabetes Educator | DX: E11.8 Type 2 diabetes mellitus with unspecified complications (principal); Z79.4 Long term (current) use of insulin | CPT/HCPCS: 99211 ==

== ENCOUNTER → 2023-11-20 12:43 | Outpatient (AMB) | payer OTHER, SELFPAY ==
--- NOTE | 2023-11-20 12:39 | A.OFFPC_ITS ---
Intake Visit Reasons: 1 month follow up BIRDIE, HTN Pleating Supervisor Required: No Allergies Penicillins [PENICILLINS] Allergy (Unknown, Verified 11/20/23 13:31) UNKNOWN Medication List - Last Reconciled 11/20/23 by SUSIE Phillips artificial tears(hypromellose) 0.3% 1 drp ophthalmic-Left QID PRN bupropion HCl XL (Wellbutrin XL) 150 mg PO QAM escitalopram oxalate (Lexapro) 10 mg PO DAILY hydrochlorothiazide 12.5 mg PO QAM hydrocortisone 2.5% 1 appl [place] BID-QID PRN hydrocortisone acetate (Anusol-HC) 25 mg MO BEDTIME hydroxyzine HCl 25 mg PO BID PRN metformin ER 500 mg PO QPM witch kimmie 50% (Tucks (witch kimmie)) 1 pad topical BID-QID PRN Tobacco use date assessed: 09/22/23 Dental Screening Dental Screen Date: 09/05/23 HPI HPI Comments History of Present Illness Details Telehealth appt today to fu on chronic conditions Mood/ED - no longer suffering ED sx since addition of Wellbutrin. Mood is overall improved. Has not needed to take PRN Vistaril. Does endorse some occasional chest pain r/t anxiety however its short lived and self resolved. Cards - has not checked BP at home, remains tolerant and compliant w/ HCTZ. Had to r/s cards consult. Hemmorhoids - no relief w/ past tx. cont to cause pain and irritation. Plan: Cont lexapro and wellbutrin. Ok to use PRN visatril, although has not needed it. Cont HCTZ. R/s cards consult Refer to Gen Surg for tx of hemorrhoids. Labs in December w/ office visit for BP check and fu on chronic conditions. Sooner PRN PFSH Medical History (Updated 11/20/23 @ 19:45 by SUSIE Phillips) Palpitations Acute hemorrhoid Knee pain Back pain History of prediabetes Anxiety Brmbk-Edmeodtzk-Rymna (WPW) syndrome Surgical History H/O cardiac radiofrequency ablation Family History Father Asthma Hypertension Diabetes Paternal Grandmother Hypertension Diabetes Brother Hypertension Social History Household Members: Spouse and Children Household Members Other:: children x3, dog Housing: House 75 years or older and lives alone: No Alcohol intake: never Patient Tobacco Use Status: Never used Tobacco e-Cigarette/Vaping Use: Never Used service: No 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al status: employed 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 1. Little interest or pleasure in doing things: not at all 2. Feeling down, depressed, or hopeless: not at all 3. Trouble falling or staying asleep, or sleeping too much: several days 4. Feeling tired or having little energy: several days 5. Poor appetite or overeating: not at all 6. Feeling bad about yourself - or that you are a failure or have let yourself or your family down: not at all 7. Trouble concentrating on things, such as reading the newspaper or watching television: not at all 8. Moving or speaking so slowly that other people could have noticed. Or the opposite - being so fidgety or restless that you have been moving around a lot more than usual: not at all 9. Thoughts that you would be better off or of hurting yourself in some way: not at all Total score: 2 Depression Screening Interpretation: Negative Depression Screening Done: Yes 31108 - PHQ-9 Billing: Yes Source: Developed by Drs. Kyrie Cisneros, Gabi Ribeiro, Neftali Davenport and colleagues, with an educational ba from [employer] Thrive Questionnaire Date Thrive assessed: 09/05/23 BIRDIE-7 AMB Questionnaire BIRDIE-7 Date BIRDIE - 7 assessed: 11/20/23 Feeling nervous, anxious, or on edge: 0 = Not at all Not being able to stop or control worryin = Not at all Worrying too much about different things: 0 = Not at all Trouble relaxin = Several days Being so restless that it is hard to sit still: 1 = Several days Becoming easily annoyed or irritable: 0 = Not at all Feeling afraid as if something awful might happen: 0 = Not at all Total BIRDIE-7 score (0-4 normal; 5-9 mild; 10-14 moderate; 15-21 severe): 2 Source: Developed by Drs. Kyrie Cisneros, Gabi Ribeiro, Neftali Davenport and colleagues, with an educational ba from [employer] BIRDIE-7 Assessment Billing BIRDIE-7 Assessment Tool: BIRDIE-7 Assessment [id number] Physical exam (Primary Care) Tobacco/Smoking Status: Tobacco use Status Tobacco use date assessed 09/22/23 11/20/23 12:43 Patient Tobacco Use Status Never used Tobacco 11/20/23 12:43 e-Cigarette/Vaping Use Never Used 11/20/23 12:43 PHQ-9: PHQ-9 Score PHQ-9: Total score 2 11/20/23 13:30 Depression Screening Interpretation: Negative Thrive Assessment: Date of Thrive Assessment Date Thrive assessed 09/05/23 11/20/23 12:43 Telehealth Telehealth Telehealth Platform: Telephone Location of provider rendering services: practice address Location of patient: other Patient Identification confirmed using: Name, : Yes Telehealth method: voice only Patient verbally consented to treatment: Yes Patient verbally consented to billing insurance company: Yes Patient informed of any privacy concerns related to visit: Yes Minutes spent on Phone/Video with Pt.: 7 Assessment and Plan Assessment & Plan (1) Hemorrhoid: Code(s): K64.9 - Unspecified hemorrhoids Qualifiers: Hemorrhoid type: unspecified Qualified Code(s): K64.9 - Unspecified hemorrhoids (2) Drug-induced erectile dysfunction: Comment: wellbutrin xl 150mg po QAM Code(s): N52.2 - Drug-induced erectile dysfunction (3) Hypertension: Comment: At goal < 130/80 on hydrochlorothiazide 12.5 mg daily. Continue Code(s): I10 - Essential (primary) hypertension Qualifiers: Hypertension type: primary hypertension Qualified Code(s): I10 - Essential (primary) hypertension (4) BIRDIE (generalized anxiety disorder): Comment: Doing well on escitalopram 10 mg p.o. daily Continue referred to counseling. Add wellbutrin xl 150 mg QD to quell ED side effects and improve BIRDIE sx. Also add hydroxyzine 25mg po BID PRN anxiety Code(s): F41.1 - Generalized anxiety disorder (5) Xncts-Aytvisorw-Injde (WPW) syndrome: Comment: Refer to cardiology for chronic disease management. Code(s): I45.6 - Pre-excitation syndrome (6) Diabetes mellitus type 2 with complications: Comment: Hemoglobin A1c 6.8%. Start Metformin ER 500mg QPM Referred for DME & Education Recheck HgA1c in 3 months (12/2023) Code(s): E11.8 - Type 2 diabetes mellitus with unspecified complications Orders: Orders Lipid Panel 12/08/23 E11.8 - Type 2 diabetes mellitus with unspecified complications, I10 - Essential (primary) hypertension Hemoglobin A1c 12/08/23 E11.8 - Type 2 diabetes mellitus with unspecified complications, I10 - Essential (primary) hypertension Comprehensive [place]. Panel Fast 12/08/23 E11.8 - Type 2 diabetes mellitus with unspecified complications, I10 - Essential (primary) hypertension Referrals General Surgery Referral K64.9 - Unspecified hemorrhoids Patient Instructions: Plan: Cont lexapro and wellbutrin. Ok to use PRN visatril, although has not needed it. Cont HCTZ. R/s cards consult Refer to Gen Surg for tx of hemorrhoids. Labs in December w/ office visit for BP check and fu on chronic conditions. Sooner PRN Coding Level of Care Code Tele Est Pt Level 1 (70472) Diagnoses Hemorrhoids, unspecified hemorrhoid type K64.9 Hemorrhoid type: unspecified Drug-induced erectile dysfunction N52.2 Primary hypertension I10 Hypertension type: primary hypertension BIRDIE (generalized anxiety disorder) F41.1 Qfxwx-Upxkbngfm-Uamfk (WPW) syndrome I45.6 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.8 Additional Codes BIRDIE-7 Assessment Billing - BIRDIE-7 Assessment Tool: BIRDIE-7 Assessment [id number] ([id number])
== END ==
PROVIDERS: PCP Nurse Practitioner Family; Visit Provider Nurse Practitioner Family
DX: E11.8 Type 2 diabetes mellitus with unspecified complications (principal); K64.9 Unspecified hemorrhoids; N52.2 Drug-induced erectile dysfunction; I10 Essential (primary) hypertension; F41.1 Generalized anxiety disorder; I45.6 Pre-excitation syndrome
CPT/HCPCS: 99212

== ENCOUNTER 2023-11-27 15:57 | Outpatient (AMB) | payer OTHER, SELFPAY ==
--- NOTE | 2023-11-27 15:59 | A.OFFVIS_ITS ---
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: T2DM- 60 MIN/LVM Technical Support Technician Required: No Allergies Penicillins [PENICILLINS] Allergy (Unknown, Verified 11/20/23 13:31) UNKNOWN HPI Comprehensive Diabetes Asmnt Most Recent Diabetes Results: Creatinine 0.97 mg/dL (0.5-1.4) 10/07/23 Blood Urea Nitrogen 15 mg/dL (9-16) 10/07/23 Sodium 139 mmol/L (135-145) 10/07/23 Potassium 3.2 mmol/L (3.3-5.1) L 10/07/23 Chloride 105 mmol/L (96-108) 10/07/23 Carbon Dioxide 23 mmol/L (22-29) 10/07/23 Calcium 8.8 mg/dL (8.4-10.2) 10/07/23 AST 34 U/L (5-37) 10/07/23 ALT 46 U/L (0-40) H 10/07/23 Total Protein 7.6 g/dL (6.5-8.0) 10/07/23 Albumin 4.2 g/dL (3.5-5.0) 10/07/23 [facility] Medical History (Updated 11/20/23 @ 19:45 by Keisha Hayes, [facility]) Palpitations Acute hemorrhoid Knee pain Back pain History of prediabetes Anxiety Wmsxj-Ofrlafyot-Uhclc (WPW) syndrome Surgical History H/O cardiac radiofrequency ablation Family History Father Asthma Hypertension Diabetes Paternal Grandmother Hypertension Diabetes Brother Hypertension Social History Household Members: Spouse and Children Household Members Other:: children x3, dog Housing: House 75 years or older and lives alone: No Alcohol intake: never Patient Tobacco Use Status: Never used Tobacco e-Cigarette/Vaping Use: Never Used service: No 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al status: employed 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 Start Metformin ER 500mg QPM Referred for DME & Education Recheck HgA1c in 3 months (12/2023) Code(s): E11.8 - Type 2 diabetes mellitus with unspecified complications Plan: Diabetes self-management education and support participation record Assessment/scale: 1= needs instructed? 2= needs review? 3= comprehend keep point? 4= demonstrates understanding/ competent? NC= Not Covered Topics Learning Objective: Initial visit Initial or post srvc Initial or post srvc Initial or post srvc Initial or post srvc Initial or post srvc Post srvc Comments Pre Edu-assessment/plan Outcome or reassess Outcome or reassess Outcome or reassess Outcome or reassess Outcome or reassess Outcome or reassess Diabetes pathophysiology 1 3 Healthy eating 2 3 Being active 2 3 Taking medication 1 3 Monitoring glucose 2 Acute complication 2 Chronic complicated 2 Lifestyle and healthy coping 1 Diabetes distress in support 2 ?Diabetes pathophysiology: ?Defined diabetes med identify own type of diabetes; list 3 options for treating diabetes Healthy eating: ?Described effect of type, amount and ?timing of food on blood glucose; list 3 methods for planning meal Being active: ?State effect of exercise on blood glucose level Taking medication: ?State effect of diabetes medications on diabetes; name diabetes medications taking, action and side effects Monitoring glucose: ?Identify recommended blood glucose targets and personal target Acute complication: ?List symptoms and treatment of hyper and hypoglycemia, DKA, sick day guidelines and guidelines for severe weather or situations of crisis and diabetes supply manage Chronic complication: ?To find the relationship of blood glucose levels to long- term complications of diabetes in screening and preventative measures Lifestyle and healthy coping: ?Described lifestyle and healthy coping strategies to rule out diabetes self-management Diabetes to stress and support: ?Recognize Diabetes to stress and be able to identified support options The patient met all learning objectives and was able to verbalize understanding and provide teach back of education topics discussed . The patient was provided with the opportunity to ask questions and all questions were answered. Patient Assessment Assess patient education level/literacy/barriers Patient questions/concerns, patient at visit with his partner, patient reports he is going to ask PCP for glucometer so he can Education really check his glucose. Reports he is compliant with taking metformin in the evenings with his meal. Learning objectives: The patient was provided with verbal and written education on the following topics as outlined below. Exercise Medical clearance Effect of exercise on blood sugar Start slowly and gradually increase pace/duration over time Goal amount of exercise Checking blood glucose/have a source of carbs with you Medications (If applicable) * Name of medication * Dosing/administration instructions * Mechanism of action * Potential side effects * Potential adverse reaction and appropriate treatment * Review onset, peak, duration Assess for concerns re: insurance coverage, cost, barriers to compliance Hypoglycemia and Hyperglycemia * Signs and symptoms * Causes * Treatment * Preventing hypoglycemia * When to seek medical attention Medical alert bracelet Lifestyle * Work * Travel * Stress management * Problem solving Know your goals * A1C * Blood sugar targets * Blood pressure * Cholesterol/LDL Urine microalbumin Smart Goal Assessment: Pt met goal:Pt patient will keep carbohydrate portion of meals between 45-60 g : 75% of the time: New Goal:? Patient will have A1c drawn at next visit with PCP Educational Materials: The patient was provided with the following written educational materials: ADCES 7 Healthy Behaviors Reducing Risks handout Patient Response to instructions: Comprehension of Instructions: Readiness to make changes: a How confident they feel about making changes: Letter of completion of diabetes Education program will be sent to referring provider Portions of this note were created using voice recognition software, please excuse any words or phrases that may have been misinterpreted. Patient Instructions: Include regular daily activity. ADA recommends 30 minutes of exercise 5 days a week. Weight loss talk to PCP or Human Resource Statistician before starting new plan. Test blood sugar as directed; Fasting and 2hpp largest meal. Watch trends in results. Utilize results and to assess how food, physical activity and medications affect blood sugar results. Bring glucometer or CGM to next visit. Be knowledgeable about diabetes medication, its action, side effects, efficacy, toxicity, prescribed dosage, appropriate timing and frequency of administration, effect of missed and delayed doses and instructions for storage, travel and safety. Problem solving techniques to monitor hypo/hyperglycemia episodes and treatments. Reduce risk reduction behaviors, smoking cessation, regular eye, foot and dental examinations. Coding Level of Care Code Est Pt Level 1 (57727) Diagnoses 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.8
== END 2023-11-27 16:33 | disposition home or self-care (01) ==
PROVIDERS: PCP Nurse Practitioner Family; Visit Provider Registered Nurse Diabetes Educator
DX: E11.8 Type 2 diabetes mellitus with unspecified complications (principal)

== ENCOUNTER → 2023-11-27 15:57 | Outpatient (BNVA) | payer OTHER, SELFPAY | PROVIDERS: PCP Nurse Practitioner Family; Visit Provider Registered Nurse Diabetes Educator | DX: E11.8 Type 2 diabetes mellitus with unspecified complications (principal) | CPT/HCPCS: 99211 ==

== ENCOUNTER 2023-12-10 13:29 | Outpatient (AMB) | payer OTHER, SELFPAY ==
[2023-12-10 13:30] VITALS: BP 140/70; PULSE 85; BMI 35.3
--- NOTE | 2023-12-10 13:30 | MHC.OFFVIS ---
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 Full data is not clear and we need review the primary data. Otherwise, he is got various atypical sounding symptoms. He really does not have much palpitations but mostly just does not feel too good. Generalized fatigue type symptoms. He gets some pressure/discomfort in the chest but that is also very random. Can happen any time. Nothing clearly provoking. He also has anxiety issues. [facility] Medical History (Updated 12/10/23 @ 13:52 by Brandon Carroll MD) Palpitations Acute hemorrhoid Knee pain Back pain History of prediabetes Anxiety Fwmaz-Efzvvprrt-Rpmtr (WPW) syndrome Surgical History H/O cardiac radiofrequency ablation Family History Father Asthma Hypertension Diabetes Paternal Grandmother Hypertension Diabetes Brother Hypertension Social History Household Members: Spouse and Children Household Members Other:: children x3, dog Housing: House 75 years or older and lives alone: No Alcohol intake: never Patient Tobacco Use Status: Never used Tobacco e-Cigarette/Vaping Use: Never Used service: No 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al status: employed 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[employer], 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al exposures/hazards: Yes Sexual orientation: Straight/Heterosexual Gender identity: Male Cognitive needs: No Hearing needs: Yes Vision needs: No Review of Systems Const Denies chills, Denies fatigue, Denies fever(s), Denies frequent falls, Denies weakness, Denies weight gain and Denies weight loss ENT Denies dizziness Card Denies chest pain, Denies leg edema, Denies lightheadedness, Denies palpitations, Denies dyspnea, Denies dyspnea on exertion and Denies orthopnea Resp Denies cough, Denies dyspnea and Denies dyspnea on exertion GI Denies bloating and Denies change in bowel habits Musc Denies muscle weakness, Denies numbness and Denies tingling Neuro Denies dizziness, Denies frequent falls, Denies numbness, Denies tingling and Denies weakness Endo Denies fatigue and Denies palpitations Physical Exam Vital Signs: Last Vital Signs Pulse 85 12/10/23 13:30 BP 140/70 H 12/10/23 13:30 BMI result Body Mass Index 35.3 Const General: comfortable and no acute distress Orientation/consciousness: patient oriented x3 HEENT Other: Unremarkable Head: Yes normal to inspection Neck Neck: Yes normal visual inspection Chest Chest palpation & inspection: normal inspection of the chest Resp Auscultation: clear to auscultation bilaterally Cardio Palpation: normal PMI Heart sounds: S1 normal heart sound present, S2 normal heart sound present, no gallops, no murmurs and no rubs GI Palpation (GI): Soft to palpation Back/Spine/Pelvis Other: unremarkable Skin General skin exam: no rashes or lesions noted Neuro General: patient oriented x3 Extrem General: Yes normal to inspection Psych Mental Status: mental status grossly normal Assessment & Plan Assessment & Plan (1) Precordial chest pain: Code(s): R07.2 - Precordial pain Category: Medical Plan: In the recent EKG, underlying rhythm is sinus. Cannot exclude old septal infarct. Leftward axis. Normal ND and corrected QT. No evidence of pre-excitation. Symptoms are atypical but EKG is abnormal. Obtain echocardiogram and coronary CT. (2) Vvjzq-Bwmwqqchs-Ipyct (WPW) syndrome: Code(s): I45.6 - Pre-excitation syndrome Category: Medical Plan: Status post ablation many years ago. Will need to review records. Orders: Orders CT Cardiac Coronary Angio Today I25.10 - Atherosclerotic heart disease of [place] coronary artery without angina pectoris, R07.2 - Precordial pain CA echo transthoracic complete Today R07.2 - Precordial pain Basic Metabolic Panel Today R07.2 - Precordial pain Coding Level of Care Code New Pt Level 4 (10700) Diagnoses Precordial chest pain R07.2 Lmjiu-Lewmsrmlc-Zxzgb (WPW) syndrome I45.6
== END 2023-12-10 13:55 | disposition home or self-care (01) ==
PROVIDERS: Visit Provider Internal Medicine
DX: R07.2 Precordial pain (principal); I45.6 Pre-excitation syndrome
CPT/HCPCS: 99214

== ENCOUNTER → 2023-12-10 13:29 | Outpatient (BNVA) | payer OTHER, SELFPAY | PROVIDERS: Visit Provider Internal Medicine | DX: R07.2 Precordial pain (principal); I45.6 Pre-excitation syndrome; I25.10 Atherosclerotic heart disease of native coronary artery without angina pectoris | CPT/HCPCS: 99212 ==

== ENCOUNTER 2024-01-02 08:32 | Outpatient (AMB) | payer OTHER, SELFPAY ==
--- NOTE | 2024-01-02 08:36 | A.OFFPC_ITS ---
Vital Signs 01/02/24 08:41 Height 5 ft 9 in Weight 238 lb 9 oz BMI 35.2 BP 116/80 Blood Pressure Location Rt brachial Position Sitting Pulse 64 Pulse Source Pulse Oximeter Pulse Oximetry (%) 95 Oxygen Delivery Method Room Air Intake Visit Reasons: HTN, Mood, labs 1 week before Intake Note: Follow up htn,anxiety. Did not get labs done yet. 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 HELPER- bupropion HCl XL (Wellbutrin XL) 150 mg PO QAM escitalopram oxalate (Lexapro) 10 mg PO DAILY hydrochlorothiazide 12.5 mg PO QAM hydroxyzine HCl 25 mg PO BID PRN lorazepam (Ativan) 1 mg PO DAILY PRN metformin ER 500 mg PO QPM Tobacco use date assessed: 09/22/23 Dental Screening Dental Screen Date: 09/05/23 HPI HPI Comments History of Present Illness Details 42 Y/O M with WPW, BIRDIE, DM2, HTN, HSV2, Ramsy Asif Syndrome (2023), ELINOR Health Maintenance: Tdap 09/05/12 PSA Specialists: Neuro Cards GI Here today for routine fu of chronic conditions Overdue for repeat labs, did not get done before visit, will do this today. These will be reviewed this evening. Not sleeping taking APAP-PM every night. Does have some restless legs..Sleep study results reviewed with him and his today. will start Autopap; encouraged to use Vistaril Mood - seems to be good; denies any panic attach or palps but does have some chest pressure/discomfort. Cont to be well w/o ED w/ the Wellbutrin GI - has appt scheduled to treat hemorrhoids. 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 Echocardiogram 2016-LVEF 55-65%. No wall motion abnormalities. Otherwise unremarkable. ETT 2020-chronotropic incompetence reached only 65% of max predicted heart rate; reached 9.9 METS, positive for dyspnea; occasional PVCs, but did not increase with workload. Holter, 2017-underlying sinus rhythm with PVC burden of 26%. We can await the echocardiogram/coronary CTA. May need another Holter for PVC burden and another stress test to reassess for chronotropic incompetence. Will need to decide on follow Exam: Awake alert oriented accompanied by Regular rate and rhythm Lung sounds clear to auscultation bilat Mood and affect flat, smiles and jokes Moves all extremities x4. Labs from today show normal electrolytes, normal renal function, hemoglobin A1c 5.4%, normal liver functions, total cholesterol 192, LDL 114, HDL 40, triglycerides 190 Plan Auto PAP to be ordered through regional home [facility] Continue Lexapro and bupropion for mood Continue metformin for diabetes; lifestyle mods for boderline cholesterol. Continue hydrochlorothiazide for blood pressure control Continue follow up with care team to include Cardiology and Gastroenterology Return to office in 4-5 months for routine follow up of chronic conditions, fasting labs 1 week before please, sooner as needed. This note is constructed using voice recognition software. While every effort has been made to ensure accuracy in order fulfillment specialist, still errors may have been included Sometimes, these errors may affect the content or meaning of the given sentence . Total time spent caring for the patient today was 50 minutes. This includes time spent before the visit reviewing the chart, time spent during the visit, and time spent after the visit on documentation [facility] Medical History (Updated 01/02/24 @ 14:33 by Keisha Hayes, [facility]) Weakness on left side of face Tongue abnormality Sleep difficulties Snoring Excessive daytime sleepiness Palpitations Acute hemorrhoid Knee pain Back pain History of prediabetes Anxiety Vfwei-Kugwuxeui-Hnzff (WPW) syndrome Surgical History (Reviewed 12/10/23 @ 13:34 by Imani Gonzales [facility]) H/O cardiac radiofrequency ablation Family History Father Asthma Hypertension Diabetes Paternal Grandmother Hypertension Diabetes Brother Hypertension Social History Household Members: Spouse and Children Household Members Other:: children x3, dog Housing: House Alcohol intake: never Patient Tobacco Use Status: Never used Tobacco e-Cigarette/Vaping Use: Never Used service: No 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al status: employed 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 1. Little interest or pleasure in doing things: not at all 2. Feeling down, depressed, or hopeless: not at all 3. Trouble falling or staying asleep, or sleeping too much: several days 4. Feeling tired or having little energy: several days 5. Poor appetite or overeating: not at all 6. Feeling bad about yourself - or that you are a failure or have let yourself or your family down: not at all 7. Trouble concentrating on things, such as reading the newspaper or watching television: not at all 8. Moving or speaking so slowly that other people could have noticed. Or the opposite - being so fidgety or restless that you have been moving around a lot more than usual: several days 9. Thoughts that you would be better off or of hurting yourself in some way: not at all Total score: 3 Depression Screening Interpretation: Positive Depression Screening Done: Yes 52890 - PHQ-9 Billing: Yes Source: Developed by Drs. Kyrie Cisneros, Gabi Ribeiro, Neftali Davenport and colleagues, with an educational ba from [employer]. Thrive Questionnaire Date Thrive assessed: 09/05/23 BIRDIE-7 AMB Questionnaire BIRDIE-7 Date BIRDIE - 7 assessed: 11/20/23 Feeling nervous, anxious, or on edge: 0 = Not at all Not being able to stop or control worryin = Not at all Worrying too much about different things: 0 = Not at all Trouble relaxin = Not at all Being so restless that it is hard to sit still: 1 = Several days Becoming easily annoyed or irritable: 0 = Not at all Feeling afraid as if something awful might happen: 0 = Not at all Total BIRDIE-7 score (0-4 normal; 5-9 mild; 10-14 moderate; 15-21 severe): 1 Source: Developed by Drs. Kyrie Cisneros, Neftali Triana and colleagues, with an educational ba from [employer]. BIRDIE-7 Assessment Billing BIRDIE-7 Assessment Tool: BIRDIE-7 Assessment 30791 Physical exam (Primary Care) Vital Signs: Last Vital Signs Pulse 64 01/02/24 08:41 BP 116/80 01/02/24 08:41 Pulse Ox 95 01/02/24 08:41 Oxygen Delivery Method Room Air 01/02/24 08:41 BMI result Body Mass Index 35.2 BMI Assessment/Plan discussion: High BMI High, discussed plan: lifestyle Tobacco/Smoking Status: Tobacco use Status Tobacco use date assessed 09/22/23 01/02/24 08:36 Patient Tobacco Use Status Never used Tobacco 01/02/24 08:36 e-Cigarette/Vaping Use Never Used 01/02/24 08:36 PHQ-9: PHQ-9 Score PHQ-9: Total score 3 01/02/24 08:57 Depression Screening Interpretation: Positive Thrive Assessment: Date of Thrive Assessment Date Thrive assessed 09/05/23 01/02/24 08:36 Assessment and Plan Assessment & Plan (1) Diabetes mellitus type 2 with complications: Comment: Referred for DME & Education Code(s): E11.8 - Type 2 diabetes mellitus with unspecified complications (2) Hypertension: Comment: At goal < 130/80 on hydrochlorothiazide 12.5 mg daily. Continue Code(s): I10 - Essential (primary) hypertension Qualifiers: Hypertension type: primary hypertension Qualified Code(s): I10 - Essential (primary) hypertension (3) ELINOR on CPAP: Code(s): G47.33 - Obstructive sleep apnea (adult) (pediatric) (4) Severe obesity (BMI 35.0-35.9 with comorbidity): Code(s): E66.01 - Morbid (severe) obesity due to excess calories; Z68.35 - Body mass index [BMI] 35.0-35.9, adult (5) BIRDIE (generalized anxiety disorder): Comment: Doing well on escitalopram 10 mg p.o. daily Continue referred to counseling. wellbutrin xl 150 mg QD to quell ED side effects and improve BIRDIE sx. Also add hydroxyzine 25mg po BID PRN anxiety/sleep Code(s): F41.1 - Generalized anxiety disorder Orders: Orders PSA, Ultra Sensitive 04/11/24 E11.8 - Type 2 diabetes mellitus with unspecified complications, I10 - Essential (primary) hypertension Comprehensive [place]. Panel Fast 04/11/24 E11.8 - Type 2 diabetes mellitus with unspecified complications, I10 - Essential (primary) hypertension Lipid Panel 04/11/24 E11.8 - Type 2 diabetes mellitus with unspecified complications, I10 - Essential (primary) hypertension Hemoglobin A1c 04/11/24 E11.8 - Type 2 diabetes mellitus with unspecified complications, I10 - Essential (primary) hypertension Vitamin B12 and Folate 04/11/24 E11.8 - Type 2 diabetes mellitus with unspecified complications, I10 - Essential (primary) hypertension Medications: Refilled escitalopram oxalate (Lexapro) 10 mg PO DAILY 90 tabs 1RF bupropion HCl XL (Wellbutrin XL) 150 mg PO QAM 90 tabs 1RF hydrochlorothiazide 12.5 mg PO QAM 90 tabs 1RF metformin ER 500 mg PO QPM 90 tabs 1RF Coding Level of Care Code Est Pt Level 5 (22311) Complex EM visit Add On G2211 Diagnoses 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.8 Primary hypertension I10 Hypertension type: primary hypertension ELINOR on CPAP G47.33 Severe obesity (BMI 35.0-35.9 with comorbidity) E66.01; Z68.35 BIRDIE (generalized anxiety disorder) F41.1 Additional Codes BIRDIE-7 Assessment Billing - BIRDIE-7 Assessment Tool: BIRDIE-7 Assessment [id number] ([id number])
[2024-01-02 08:41] VITALS: BP 116/80; PULSE 64; O2SAT 95; BMI 35.2
== END 2024-01-02 09:09 | disposition home or self-care (01) ==
PROVIDERS: PCP Nurse Practitioner Family; Visit Provider Nurse Practitioner Family
DX: E11.8 Type 2 diabetes mellitus with unspecified complications (principal); E66.01 Morbid (severe) obesity due to excess calories; Z68.35 Body mass index [BMI] 35.0-35.9, adult; I10 Essential (primary) hypertension; F41.1 Generalized anxiety disorder; G47.33 Obstructive sleep apnea (adult) (pediatric)
CPT/HCPCS: 99215; G2211

== ENCOUNTER 2024-01-02 09:47 | Outpatient (REF) | payer OTHER, SELFPAY ==
[2024-01-02 12:01] LABS: Alanine Aminotransferase 27 U/L (0-40); Albumin Level 4.3 g/dL (3.5-5.0); Alkaline Phosphatase 75 U/L (39-117); Anion Gap 13 (12-20); Aspartate Amino Transferase 22 U/L (5-37); Bilirubin Total 0.4 mg/dL (0.0-1.0); Blood Urea Nitrogen 12 mg/dL (9-16); Calcium 8.7 mg/dL (8.4-10.2); Carbon Dioxide 26 mmol/L (22-29); Chloride 107 mmol/L (96-108); Cholesterol 192 mg/dL (<200); Estimated Glomerular Filt Rate > 60; Glucose Fasting 127 mg/dL (60-99); Glucose Random 127 mg/dL (60-115); HDL Cholesterol 40 mg/dL (>40); LDL Cholesterol Calculated 114 mg/dL (<100); Potassium 3.9 mmol/L (3.3-5.1); Sodium 142 mmol/L (135-145); Total Protein 7.5 g/dL (6.5-8.0); Triglycerides 190 mg/dL (<150)
[2024-01-02 12:04] LABS: Estimated Average Glucose 108 mg/dL; Hemoglobin A1C 150.8788 umol/L; Hemoglobin A1c % 5.4 % (<6.0)
== END 2024-01-02 09:48 | disposition home or self-care (01) ==
LOC: HO.WFDLDS 09:47
PROVIDERS: Visit Provider Nurse Practitioner Family
DX: I10 Essential (primary) hypertension (principal); E11.8 Type 2 diabetes mellitus with unspecified complications; R07.2 Precordial pain
CPT/HCPCS: 36415; 80048; 80053; 80061; 83036

== ENCOUNTER 2024-02-05 08:43 | Emergency (ER) | payer OTHER, SELFPAY ==
--- NOTE | ~2024-02-05 | CT_ITS ---
EXAMINATION: CT ABDOMEN AND PELVIS WITHOUT CONTRAST CLINICAL INFORMATION: Right flank pain. COMPARISON: CT abdomen and pelvis 08/13/2018. TECHNIQUE: Multidetector volumetric imaging was performed from the superior aspect of the liver through the pubic symphysis. Sagittal and coronal reformatted images were obtained on the technologist's workstation. This CT examination was performed using dose optimization techniques as appropriate, variously including the following: *Automated exposure control *Adjustment of mA and/or kV according to patient size (this includes techniques or standardized protocols for targeted exams where dose is matched to indication/reason for exam; i.e. extremities or head) *Use of iterative reconstruction technique DLP: 727 mGy-cm FINDINGS: LUNG BASES: Calcified granuloma right base. No imaging follow-up is recommended. LIVER, GALLBLADDER, AND BILIARY TREE: The liver is normal in size, shape, and attenuation. No focal hepatic lesion or biliary ductal dilatation is present. The gallbladder is unremarkable with no evidence of radiopaque gallstones, gallbladder wall thickening, or obvious pericholecystic inflammatory changes. PANCREAS: No discrete mass or ductal dilatation. SPLEEN: The spleen appears normal. ADRENAL GLANDS: No adrenal mass. KIDNEYS AND URETERS: Punctate nonobstructing calculus in the upper right kidney 9.9 cm from the posterolateral skin surface. No other definite calculi. Previously seen left upper pole calculus appears to have passed in the interim. No hydroureteronephrosis. No visible ureteral calculus. BLADDER: No visible bladder calculus. GASTROINTESTINAL TRACT: The small and large bowel are normal in caliber. The appendix appears normal. No acute inflammatory changes. ABDOMINAL WALL: No significant hernia is appreciated. LYMPH NODES: No pathologically enlarged lymph nodes. VASCULAR: No pathologically enlarged lymph nodes. PELVIC VISCERA: Unremarkable. OSSEOUS STRUCTURES: Mild degenerative changes in the spine. CT/CT abdomen pelvis wo IV con IMPRESSION: Punctate nonobstructing calculus upper right kidney. No hydroureteronephrosis. Other incidental findings as above. Fleischner guidelines were followed. Electronically signed by: Adam Blunt MD 02/05/2024 12:00 PM EDT
[2024-02-05 08:52] VITALS: BP 140/86; PULSE 71; RESP 16; TEMP 36.6; O2SAT 98; BMI 35.3
--- NOTE | 2024-02-05 09:13 | ED_ITS ---
HPI - Abdominal Pain General Chief Complaint: Abdominal Pain Stated Complaint: Abd pain Time Seen by Provider: 02/05/24 09:05 Source: patient and old records reviewed Mode of arrival: ambulatory Limitations: no limitations History of Present Illness ED Provider: ALEXY RICH narrative: 44 yo male with PMH of HTN, DM2, WPW, anxiety, ELINOR on CPAP no prior abdominal surgeries here with c/o 4 days R flank pain that is worsening aching and sharp. No n/v/d, change in urinary habits. No recent travel or procedures. No fevers or cough. Hurts to touch and move denies trauma. Has had kidney stones before. He is eating normally. Denies chronic NSAID use. MD elicited complaint: flank pain Onset (ago): day(s) (4) Pain Consistency: intermittent Location: R flank Severity: moderate Quality: stabbing and aching Radiation: none Migration to: no migration Exacerbating factors: movement Relieving factors: nothing Associated symptoms: denies other symptoms Related Data Previous Rx's ?Medication ?Instructions ?Recorded hydroxyzine HCl 25 mg tablet 25 mg PO BID PRN anxiety attack 10/08/23 #60 tabs lorazepam 1 mg tablet (Ativan) 1 mg PO DAILY PRN anxiety #1 tab 12/10/23 bupropion HCl 150 mg 24 hr tablet, 150 mg PO QAM #90 tabs 01/02/24 extended release (Wellbutrin XL) escitalopram oxalate 10 mg tablet 10 mg PO DAILY #90 tabs 01/02/24 (Lexapro) hydrochlorothiazide 12.5 mg tablet 12.5 mg PO QAM #90 tabs 01/02/24 metformin 500 mg tablet,extended 500 mg PO QPM #90 tabs 01/02/24 release 24 hr lidocaine 5 % topical patch 1 patch topical DAILY #30 ea 02/05/24 Allergies Allergy/AdvReac Type Severity Reaction Status Date / Time Penicillins [PENICILLINS] Allergy Unknown UNKNOWN Verified 02/05/24 08:53 Review of Systems Review of Systems Constitutional : No Weight loss, No Fever, No Chills ENT/Mouth : No sore throat, No Rhinorrhea Eyes: No Swelling, No Redness Cardiovascular : No Chest Pain, No SOB, No Edema Respiratory : No Cough, No Sputum, No Wheezing Gastrointestinal : no Nausea, no Vomiting, no Diarrhea, positive abdominal Pain, No Hematochezia, No Melena Genitourinary : No Dysuria, No Urinary Frequency, No Hematuria, No Urgency Musculoskeletal : No joint pain, No Myalgias, No Joint Swelling Skin : No Skin Lesions, No rash Neuro : No Weakness, No Numbness, No Dizziness, No Headache All other systems reviewed and are negative. [facility] Past Medical History Attestation statement: The following information was validated with the patient. Source: old records reviewed Medical History Weakness on left side of face Tongue abnormality Sleep difficulties Snoring Excessive daytime sleepiness Palpitations Acute hemorrhoid Knee pain Back pain History of prediabetes Anxiety Nrnos-Dvnmvybsn-Ivvhx (WPW) syndrome Surgical History H/O cardiac radiofrequency ablation Family History Family History Father Asthma Hypertension Diabetes Paternal Grandmother Hypertension Diabetes Brother Hypertension Social History Social History Household Members: Spouse and Children Household Members Other:: children x3, dog Housing: House Alcohol intake: former Patient Tobacco Use Status: Never used Tobacco Smoked in Last 30 Days: No e-Cigarette/Vaping Use: Never Used Use of substances other than those prescribed or required for medical reasons: No Advance Directives: No Advance Directives Information Provided: Yes Do you have a plan to hurt others: No Plan service: No 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al status: employed 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 Oriented X3. No acute distress. Eyes: Pupils equal, round and reactive to light. ENT: Pharynx normal. Neck: Normal inspection. Neck supple. CVS: Normal heart rate and rhythm. Pulses normal. Respiratory: No respiratory distress. Breath sounds normal. Abdomen: Soft and nontender. neg barajas's sign Skin: Skin warm and dry. Normal skin color. Normal skin turgor. Extremities: No lower extremity edema. No calf ttp Neuro: Oriented X 3. No motor deficit. No sensory deficit. Medical Decision Making Medical Decision Making [facility] Narrative: 44 yo male with PMH of HTN, DM2, WPW, anxiety, ELINOR on CPAP here with c/o R flank pain but no n/v/d fevers or urinary symptoms here with c/o just R flank pain. He is PERC negative at this time, it could be MSK vs renal colic. At this time will need labs, UA, CT scan for renal colic. IV toradol for pain ordered Differential Diagnosis Differential Diagnoses: The differential diagnosis associated with the presentation includes MSK pain, renal colic, constpipatin Admission/Observation Consideration of admission/observation: Escalation of care including admission/observation considered no acute findings stable for DC Lab Data [facility] Lab Attestation statement: I reviewed the patient's lab results. 02/05/24 09:17 02/05/24 09:17 Labs: Lab Results 02/05/24 02/05/24 Range/Units 09:17 12:15 WBC 6.5 (4.8-10.8) X10*3/uL RBC 5.24 (4.60-5.80) X10*6/uL Hgb 16.5 (14.0-18.0) g/dl Hct 45.3 (42.0-52.0) % MCV 86.5 (80.0-98.0) fL MCH 31.5 (27.0-33.0) pg MCHC 36.4 H (31.0-36.0) g/dl RDW 11.9 (11.0-16.0) % Plt Count 175 (160-400) X10*3/uL MPV 9.1 L (9.4-12.4) fL Immature Gran % (Auto) 0.3 (0.0-0.4) % Neut % (Auto) 50.5 (45-73) % Lymph % (Auto) 40.1 H (20-40) % Bonner % (Auto) 6.6 (2-11) % Eos % (Auto) 1.7 (0-4) % Baso % (Auto) 0.8 (0-2) % Lymph # (Auto) 2.6 (1.2-4.9) X10*3/uL Bonner # (Auto) 0.4 (0.1-1.2) X10*3/uL Eos # (Auto) 0.1 (0.0-0.4) X10*3/uL Baso # (Auto) 0.1 (0.0-0.2) X10*3/uL Abs Immat Gran (auto) 0.02 (0.00-0.03) X10*3/uL Absolute Neuts (auto) 3.3 (2.0-8.3) x10*3/uL Absolute Nucleated RBC 0.000 (0.0-0.012) X10*3/uL Nucleated RBC % (auto) 0.0 (0.0-0.2) /100WBC Sodium 141 (135-145) mmol/L Potassium 4.0 (3.3-5.1) mmol/L Chloride 106 (96-108) mmol/L Carbon Dioxide 29 (22-29) mmol/L Anion Gap 10 L (12-20) BUN 15 (9-16) mg/dL Creatinine 0.93 (0.5-1.4) mg/dL Estim Creat Clear Calc 123.0 Estimated GFR > 60 Random Glucose 126 H (60-115) mg/dL Calcium 9.3 D (8.4-10.2) mg/dL Total Bilirubin 0.6 (0.0-1.0) mg/dL Direct Bilirubin 0.1 (0.0-0.5) mg/dL AST 18 (5-37) U/L ALT 25 (0-40) U/L Alkaline Phosphatase 73 (39-117) U/L Total Protein 7.3 (6.5-8.0) g/dL Albumin 4.2 (3.5-5.0) g/dL Lipase 49 (8-78) U/L Urine Color Yellow Urine Appearance Clear Urine pH 5.5 (5.0-9.0) Ur Specific [place] 1.025 (1.005-1.025) Urine Protein Negative (Neg-Trace) mg/dL Urine Glucose (UA) Negative (Negative) mg/dL Urine Ketones Negative (Negative) mg/dL Urine Blood Negative (Negative) Urine Nitrite Negative (Negative) Ur Leukocyte Esterase Negative (Negative) Ethyl Alcohol < 10 mg/dL Independent Interpretation I performed an independent interpretation of an: CT Scan (no acute findings) Radiology Impression Discussion of test interpretation with radiology: I have reviewed the radiologist's reading. Independent Historian Clinical information obtained from an independent historian. History obtained from or confirmed by: Other External Record Review External record reviewed: Inpatient record Prescription Management I considered prescription management with: Other Medications Administered Discontinued Medications Generic Name Dose Route Start Last Admin Trade Name Freq PRN Reason Stop Dose Admin Sodium Chloride 1,000 mls @ 999 mls/hr 02/05/24 09:25 02/05/24 11:38 Ns IV 02/05/24 10:25 Infused .Q1H1M ONE Infusion Ketorolac Tromethamine 15 mg 02/05/24 09:25 02/05/24 09:32 Ketorolac Tromethamine 15 Mg/Ml Vial IVPUSH 02/05/24 09:26 15 mg ONCE ONE Administration Discharge Plan Discharge Clinical Impression: Acute right flank pain Patient Disposition: Home, Self-Care Instructions: Flank Pain (ED) Additional Instructions: return for worsening pain, fevers, difficulty breathing or any other concerns labs, urine normal no acute cause on CT scan small stone not the source of her pian CT/CT abdomen pelvis wo IV con IMPRESSION: Punctate nonobstructing calculus upper right kidney. No hydroureteronephrosis. Prescriptions: New lidocaine 5 % adhesive patch,medicated 1 patch topical DAILY Qty: 30 0RF Rx Instructions: leave on most painful area for up to 12 hrs No Action lorazepam [Ativan] 1 mg tablet 1 mg PO DAILY PRN (Reason: anxiety) Qty: 1 0RF Rx Instructions: 30 min before imaging hydroxyzine HCl 25 mg tablet 25 mg PO BID PRN (Reason: anxiety attack ) Qty: 60 0RF bupropion HCl [Wellbutrin XL] 150 mg tablet extended release 24 hr 150 mg PO QAM Qty: 90 1RF escitalopram oxalate [Lexapro] 10 mg tablet 10 mg PO DAILY Qty: 90 1RF hydrochlorothiazide 12.5 mg tablet 12.5 mg PO QAM Qty: 90 1RF metformin 500 mg tablet extended release 24 hr 500 mg PO QPM Qty: 90 1RF Stand Alone Forms: Work/School Release Print Language: Welsh
[2024-02-05 09:22] LABS: MANUAL DIFF FLAG NO
[2024-02-05 09:25] LABS: Basophils Absolute Auto 0.1 X10*3/uL (0.0-0.2); Basophils Percent Auto 0.8 % (0-2); Eosinophils Absolute Auto 0.1 X10*3/uL (0.0-0.4); Eosinophils Percent Auto 1.7 % (0-4); Hematocrit 45.3 % (42.0-52.0); Hemoglobin 16.5 g/dl (14.0-18.0); Imm Gran Abs Auto 0.02 X10*3/uL (0.00-0.03); Imm Gran Pct Auto 0.3 % (0.0-0.4); Lymphocytes Absolute Auto 2.6 X10*3/uL (1.2-4.9); Lymphocytes Percent Auto 40.1 % (20-40); Mean Corpuscular HGB Conc 36.4 g/dl (31.0-36.0); Mean Corpuscular Hemoglobin 31.5 pg (27.0-33.0); Mean Corpuscular Volume 86.5 fL (80.0-98.0); Mean Platelet Volume 9.1 fL (9.4-12.4); Monocytes Absolute Auto 0.4 X10*3/uL (0.1-1.2); Monocytes Percent Auto 6.6 % (2-11); Neutrophils Absolute Auto 3.3 x10*3/uL (2.0-8.3); Neutrophils Percent Auto 50.5 % (45-73); Platelet Count 175 X10*3/uL (160-400); Red Blood Count 5.24 X10*6/uL (4.60-5.80); Red Cell Distribution Width 11.9 % (11.0-16.0); White Blood Count 6.5 X10*3/uL (4.8-10.8)
[2024-02-05] MEDS: 0.9 % Sodium Chloride 1,000 ML 999 ML IV (09:32)
[2024-02-05] MEDS: Ketorolac Tromethamine 15 MG/ML VIAL IVPUSH (09:32)
[2024-02-05 09:34] LABS: Ethanol < 10 mg/dL
[2024-02-05 09:48] LABS: Alanine Aminotransferase 25 U/L (0-40); Albumin Level 4.2 g/dL (3.5-5.0); Alkaline Phosphatase 73 U/L (39-117); Anion Gap 10 (12-20); Aspartate Amino Transferase 18 U/L (5-37); Bilirubin Direct 0.1 mg/dL (0.0-0.5); Bilirubin Total 0.6 mg/dL (0.0-1.0); Blood Urea Nitrogen 15 mg/dL (9-16); Calcium 9.3 mg/dL (8.4-10.2); Carbon Dioxide 29 mmol/L (22-29); Chloride 106 mmol/L (96-108); Estimated Glomerular Filt Rate > 60; Glucose Random 126 mg/dL (60-115); Lipase 49 U/L (8-78); Sodium 141 mmol/L (135-145); Total Protein 7.3 g/dL (6.5-8.0)
[2024-02-05 10:00] VITALS: BP 115/71; PULSE 56; RESP 18; TEMP 36.8; O2SAT 97
[2024-02-05 12:28] LABS: Appearance Urine Clear; Color Urine Yellow; Glucose Urine UA Negative (Negative); Leukocyte Esterase Urine Negative (Negative); Nitrite Urine Negative (Negative); PH 5.5 (5.0-9.0); Specific Gravity - Urine 1.025 (1.005-1.025); Urine Blood Negative (Negative); Urine Ketones Negative (Negative); Urine Protein Negative (Neg-Trace)
[2024-02-05 13:07] VITALS: BP 115/72; PULSE 62; RESP 18; TEMP 36.6; O2SAT 98
== END 2024-02-05 13:08 | disposition home or self-care (01) ==
PROVIDERS: Emergency Provider Emergency Medicine; PCP Nurse Practitioner Family
DX: R10.11 Right upper quadrant pain (principal); G47.33 Obstructive sleep apnea (adult) (pediatric); I10 Essential (primary) hypertension; E11.9 Type 2 diabetes mellitus without complications; R11.0 Nausea; Z87.442 Personal history of urinary calculi; Z79.899 Other long term (current) drug therapy; Z79.84 Long term (current) use of oral hypoglycemic drugs
CPT/HCPCS: 36415; 74176; 80048; 80076; 80307; 81003; 83690; 85025; 96361; 96374; 99284; J1885

== ENCOUNTER 2024-05-03 13:04 | Outpatient (AMB) | payer OTHER, SELFPAY ==
--- NOTE | 2024-05-03 13:19 | A.OFFVIS_ITS ---
Vital Signs 05/03/24 13:25 Height 5 ft 9 in Weight 243 lb BMI 35.9 BP 128/80 Blood Pressure Location Lt brachial Position Standing Pulse 94 Intake Visit Reasons: painful hemorrohoids Intake Note: This patient presents for painful hemorrhoids. Pt c/o: reports pain. Sterile Process Coordinator Required: No Accompanied by: Family/Other Allergies Penicillins [PENICILLINS] Allergy (Unknown, Verified 05/03/24 13:25) UNKNOWN Medication List - Last Reconciled 05/03/24 by Ran Watts MD bupropion HCl XL (Wellbutrin XL) 150 mg PO QAM escitalopram oxalate (Lexapro) 10 mg PO DAILY hydrochlorothiazide 12.5 mg PO QAM hydroxyzine HCl 25 mg PO BID PRN lidocaine 5% 1 patch topical DAILY lorazepam (Ativan) 1 mg PO DAILY PRN metformin ER 500 mg PO QPM HPI HPI painful hemorrohoids: Details: 44-year-old male referred for hemorrhoids. He says that he has noticed this for about 2 years now. He describes discomfort with this including itching and some mild pain He denies any bleeding. He denies problems with constipation. He says that he has noticed this large mass which does not go away for 2 years now. He has diabetes. [facility] Medical History (Updated 05/03/24 @ 13:40 by Ran Watts MD) External hemorrhoids with complication Weakness on left side of face Tongue abnormality Sleep difficulties Snoring Excessive daytime sleepiness Palpitations Acute hemorrhoid Knee pain Back pain History of prediabetes Anxiety Rtdmj-Kvinqiwzd-Jvigu (WPW) syndrome Surgical History H/O cardiac radiofrequency ablation Family History Father Asthma Hypertension Diabetes Paternal Grandmother Hypertension Diabetes Brother Hypertension Social History Household Members: Spouse and Children Household Members Other:: children x3, dog Housing: House 75 years or older and lives alone: No Alcohol intake: former Patient Tobacco Use Status: Never used Tobacco e-Cigarette/Vaping Use: Never Used service: No 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al status: employed 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[employer], 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al exposures/hazards: Yes Sexual orientation: Straight/Heterosexual Gender identity: Male Cognitive needs: No Hearing needs: Yes Vision needs: No Review of Systems Const Denies chills and Denies fever(s) Card Denies chest pain, Denies dyspnea and Denies dyspnea on exertion Resp Denies cough, Denies dyspnea and Denies dyspnea on exertion GI Denies hematochezia and Denies change in bowel habits Denies hematuria and Denies difficulty urinating Musc Denies back pain and Denies limited range of motion Neuro Denies focal weakness and Denies convulsions Psych Denies depression and Denies mood swings Physical Exam Vital Signs: Last Vital Signs Pulse 94 05/03/24 13:25 BP 128/80 05/03/24 13:25 BMI result Body Mass Index 35.9 Const General: comfortable and no acute distress Orientation/consciousness: patient oriented x3 Neck Neck: Yes no lymphadenopathy Resp Auscultation: clear to auscultation bilaterally Cardio Rhythm: regular rhythm GI Other: Rectal exam shows a large external hemorrhoid on the posterior aspect, about 2.5 cm, appearing to be chronically sclerosed. Palpation (GI): Soft to palpation, nontender and no guarding Neuro General: patient oriented x3 Office Procedures Anoscopy He was in maira-knife position. The anoscope was gently inserted. A full examination of the anal canal was done. He did have some small internal hemorrhoidal columns. Again there was this large external hemorrhoid on the posterior aspect as described above. There were no fissures, no ulcerations or any lesions. There was no bleeding. He had good sphincter tone and there was no induration on digital exam [id number] Assessment & Plan Assessment & Plan (1) External hemorrhoids with complication: Code(s): K64.4 - Residual hemorrhoidal skin tags Category: Medical Plan: He has this large external hemorrhoid as described above. This has been causing him significant discomfort. He is thinking about having this removed. I explained the technique of exam under anesthesia and hemorrhoidectomy. I reviewed the risks including but not limited to bleeding, infection and postop pain, as well as the benefits and alternatives. I explained to him what to expect postoperatively He says he will call the office once he decides to proceed. His was with him during the visit. Coding Level of Care Code New Pt Level 3 (11098) Diagnoses External hemorrhoids with complication K64.4 CPT Codes Details - CPT: 50936-[id number] ([id number])
[2024-05-03 13:25] VITALS: BP 128/80; PULSE 94; BMI 35.9
== END 2024-05-03 13:35 | disposition home or self-care (01) ==
PROVIDERS: PCP Nurse Practitioner Family; Visit Provider Surgery
DX: K64.4 Residual hemorrhoidal skin tags (principal); K64.8 Other hemorrhoids
CPT/HCPCS: 46600; 99203

== ENCOUNTER → 2024-05-03 13:04 | Outpatient (BNVA) | payer OTHER, SELFPAY | PROVIDERS: PCP Nurse Practitioner Family; Visit Provider Surgery | DX: K64.4 Residual hemorrhoidal skin tags (principal) | CPT/HCPCS: 46600; 99202 ==

== ENCOUNTER 2024-06-11 12:56 | Outpatient (AMB) | payer OTHER, SELFPAY ==
--- NOTE | 2024-06-11 12:58 | A.OFFPC_ITS ---
Vital Signs 06/11/24 13:01 06/11/24 17:19 Height 5 ft 9 in Weight 249 lb 8 oz BMI 36.8 BP 138/80 Blood Pressure Location Lt brachial Position Sitting Respiration 14 Pulse 105 H 90 Pulse Source Pulse Oximeter Auscultation Pulse Oximetry (%) 96 Oxygen Delivery Method Room Air Intake Visit Reasons: Elbow/Arm pain Intake Note: Patient complaining of right arm and elbow pain x 2 weeks Web Merchandiser Required: No Allergies Penicillins [PENICILLINS] Allergy (Unknown, Verified 06/11/24 13:07) UNKNOWN Medication List - Last Reconciled 06/11/24 by Keisha Hayes, RAKING MACHINE OPERATOR- bupropion HCl XL (Wellbutrin XL) 150 mg PO QAM escitalopram oxalate (Lexapro) 10 mg PO DAILY hydrochlorothiazide 12.5 mg PO QAM hydroxyzine HCl 25 mg PO BID PRN lidocaine 5% 1 patch topical DAILY lorazepam (Ativan) 1 mg PO DAILY PRN metformin ER 500 mg PO QPM Tobacco use date assessed: 09/22/23 Dental Screening Dental Screen Date: 09/05/23 HPI HPI Comments History of Present Illness Details 44 Y/O M with WPW, BIRDIE, DM2, HTN, HSV2, Ramsy Asif Syndrome (2023), ELINOR on CPAP WPW syndrome with successful ablation in 2015 Health Maintenance: Tdap 09/05/12 PSA Specialists: [facility] The patient is a 44-year-old male presenting with right arm and elbow pain, experienced for the last two weeks. The primary pain location is at the elbow, radiating down the arm, primarily aggravated by extension. The patient has not noted any redness or swelling, nor any specific injury, trauma, or incidents that could have precipitated the pain. He reports being right-hand dominant and engaged in physical work, but notes that this level of activity is not new. He has not found relief from rest or use of rlhx-glr-wqmpwki analgesics like Tylenol or ibuprofen. He describes another pain in the right flank, which began concurrently with the elbow pain, described as tension with certain movements. There has been no associated nausea, vomiting, or changes in bowel or urinary habits. The onset of flank pain does not correlate with any trauma or changes in activity level. In regards to his chronic conditions his anxiety and depression we are well controlled on his current medications. His blood pressure is well controlled on hydrochlorothiazide. His diabetes is well controlled on metformin. Consult note from Cardiology reviewed in December which suggested need for follow up. Patient has not scheduled this. I was able to contact the cardiology department directly and they have advised for him to complete his testing and then schedule an office visit. Physical Exam General: Awake, alert. No apparent distress Eyes: Sclera and conjunctiva clear bilaterally Cardiovascular: Regular rate and rhythm Respiratory: Clear to auscultation bilaterally R arm neurovasc intact, pain w palp over lateral epicondyle; no erythema, edema. FROM Abd soft, nontender, negative murphys sign, no CVAT unable to reproduce pain he c/o in his right thorax/flank area on exam Results - Labs: Hemoglobin A1c of 5.9 today diane cating well-controlled diabetes. Plan - Recommend the use of an offloading ban d for right lateral epicondylitis to be placed below the site of pain. - Prescribe a topical anti-inflammatory agent to apply onto the affected elbow area up to four times per day. - Prescribe a short course of muscle rel axants for right flank pain, advising to use only when not needing to drive or operate machinery due to its sedating effects. - Routine follow-up with cardiology to r easss WPW post-ablation status, including potential additional testing as previously advised. - Continue current diabetes management a s HbA1c is well within control. - Offered routine preventative labs incl uding cholesterol, to be performed the same day, due since April. Patient was informed and verbally consented to the use of an ambient scribe for clinic note documentation during this visit. Discussion Notes During this visit, we discussed the diagnosis of right lateral epicondylitis and its management, including the use of an offloading band and topical anti- inflammatory to reduce stress on the elbow. We addressed the right flank pain, which is likely musculoskeletal, with an option for muscle relaxants to alleviate tension. I emphasized the patient's well-controlled diabetes and reinforced current management given the satisfactory A1c level. We reviewed his WPW history, discussing aligning with cardiology for follow-up. Patient was informed about obtaining overdue preventative labs today and understood that he should return if symptoms do not improve or worsen. Patient Instructions - Apply the offloading band on the right forearm below the elbow area as demonstrated. - Use the prescribed topical anti-inflam matory on the affected elbow as needed, up to four times daily. - Take muscle relaxants for flank pain r elief only when not driving or operating machinery. - Continue with current diabetes medicat ion regimen. - Proceed to the lab for routine blood w ork. - Schedule a follow-up appointment with cardiology for further evaluation of past WPW treatment and to discuss any new tests required. - Seek follow-up care promptly if the el bow or flank symptoms do not improve or if new symptoms arise. - Routine follow-up appointment to be sc heduled in six months. This note is constructed using voice recognition software. While every effort has been made to ensure accuracy in core drill operator, still errors may have been included Sometimes, these errors may affect the content or meaning of the given sentence . Total time spent caring for the patient today was 40 minutes. This includes time spent before the visit reviewing the chart, time spent during the visit, and time spent after the visit on documentation [facility] Medical History (Updated 06/11/24 @ 17:20 by Keisha Hayes, [facility]) External hemorrhoids with complication Weakness on left side of face Tongue abnormality Sleep difficulties Snoring Excessive daytime sleepiness Palpitations Acute hemorrhoid Knee pain Back pain History of prediabetes Anxiety Ixfyc-Wpgoesbro-Vhedf (WPW) syndrome Surgical History H/O cardiac radiofrequency ablation Family History Father Asthma Hypertension Diabetes Paternal Grandmother Hypertension Diabetes Brother Hypertension Social History Household Members: Spouse and Children Household Members Other:: children x3, dog Housing: House 75 years or older and lives alone: No Alcohol intake: former Patient Tobacco Use Status: Never used Tobacco e-Cigarette/Vaping Use: Never Used service: No 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al status: employed 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 1. Little interest or pleasure in doing things: not at all 2. Feeling down, depressed, or hopeless: not at all 3. Trouble falling or staying asleep, or sleeping too much: several days 4. Feeling tired or having little energy: several days 5. Poor appetite or overeating: several days 6. Feeling bad about yourself - or that you are a failure or have let yourself or your family down: not at all 7. Trouble concentrating on things, such as reading the newspaper or watching television: not at all 8. Moving or speaking so slowly that other people could have noticed. Or the opposite - being so fidgety or restless that you have been moving around a lot more than usual: not at all 9. Thoughts that you would be better off or of hurting yourself in some way: not at all Total score: 3 Depression Screening Interpretation: Negative Depression Screening Done: Yes [id number] - PHQ-9 Billing: Yes Source: Developed by Drs. Kyrie Cisneros, Gabi Ribeiro, Neftali Davenport and colleagues, with an educational ba from [employer]. Thrive Questionnaire Date Thrive assessed: 06/11/24 I am a: Patient What is your living situation today?: I have a steady place to live Within the past 12 months, did the food you bought not last and you didn't have the money to get more?: I choose not to answer this question Within the past 12 months, did you worry whether your food would run out before you got money to buy more?: I choose not to answer this question Do you have trouble paying for medicines?: No Do you have trouble getting transportation to medical appointments?: No Do you have trouble paying your heating and electricity bill?: No Do you have trouble taking care of your child, family member or friend?: No Do you have trouble with day-to-day activities such as bathing, preparing meals, shopping, managing finances, etc.?: No Are you currently unemployed and looking for a job?: I choose not to answer this question Are you interested in more education?: I choose not to answer this question Please select the resources that you would like help with: None Currently or been in a relationship where the following occur: I choose not to answer THRIVE Score: 0 AUDIT C Alcohol Use Questionnaire (AUDIT-C) 1. How often do you have a drink containing alcohol?: Monthly or less 2. How many drinks containing alcohol do you have on a typical day when you are drinking?: 1 or 2 3. How often do you have six or more drinks on one occasion?: Never Total Score: 1 Score Reviewed/Action Taken: Yes BIRDIE-7 AMB Questionnaire BIRDIE-7 Date BIRDIE - 7 assessed: 06/11/24 Feeling nervous, anxious, or on edge: 0 = Not at all Not being able to stop or control worryin = Not at all Worrying too much about different things: 0 = Not at all Trouble relaxin = Not at all Being so restless that it is hard to sit still: 0 = Not at all Becoming easily annoyed or irritable: 0 = Not at all Feeling afraid as if something awful might happen: 0 = Not at all Total BIRDIE-7 score (0-4 normal; 5-9 mild; 10-14 moderate; 15-21 severe): 0 Source: Developed by Drs. Kyrie Cisneros, Gabi Ribeiro, Neftali Davenport and colleagues, with an educational ba from [employer]. BIRDIE-7 Assessment Billing BIRDIE-7 Assessment Tool: BIRDIE-7 Assessment 61862 Physical exam (Primary Care) Vital Signs: Last Vital Signs Pulse 105 H 06/11/24 13:01 Resp 14 06/11/24 13:01 BP 138/80 06/11/24 13:01 Pulse Ox 96 06/11/24 13:01 Oxygen Delivery Method Room Air 06/11/24 13:01 BMI result Body Mass Index 36.8 BMI Assessment/Plan discussion: High BMI High, discussed plan: lifestyle Tobacco/Smoking Status: Tobacco use Status Tobacco use date assessed 09/22/23 06/11/24 13:02 Patient Tobacco Use Status Never used Tobacco 06/11/24 13:02 e-Cigarette/Vaping Use Never Used 06/11/24 13:02 PHQ-9: PHQ-9 Score PHQ-9: Total score 3 06/11/24 16:17 Depression Screening Interpretation: Negative Thrive Assessment: Date of Thrive Assessment Date Thrive assessed 06/11/24 06/11/24 13:02 Currently or been in a relationship where the following occur: I choose not to answer Results AMB Hemoglobin A1c AMB Hemoglobin A1c 5.9 % Last Edit by Hong Gonzales MA on 06/11/24 13:18 Results Reviewed Results Reviewed: Laboratory Last Values Hgb A1c (Clinic) 5.9 % (4.0-6.0) 06/11/24 13:07 Coding Level of Care Code Est Pt Level 5 (98883) Complex EM visit Add On G2211 Diagnoses Right tennis elbow M77.11 Spasm of thoracic back muscle M62.830 Primary hypertension I10 Hypertension type: primary hypertension 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.8 BIRDIE (generalized anxiety disorder) F41.1 Severe obesity (BMI 35.0-35.9 with comorbidity) E66.01; Z68.35 Zssmm-Tjzyafirl-Hgygv (WPW) syndrome I45.6 Additional Codes BIRDIE-7 Assessment Billing - BIRDIE-7 Assessment Tool: BIRDIE-7 Assessment 74796 ([id number]) PHQ-9 - 91727 - PHQ-9 Billing: Yes ([id number]) Assessment & Plan Assessment & Plan (1) Right tennis elbow: Code(s): M77.11 - Lateral epicondylitis, right elbow Category: Medical (2) Spasm of thoracic back muscle: Code(s): M62.830 - Muscle spasm of back Category: Medical (3) Hypertension: Comment: At goal < 130/80 on hydrochlorothiazide 12.5 mg daily. Continue Code(s): I10 - Essential (primary) hypertension Category: Medical Qualifiers: Hypertension type: primary hypertension Qualified Code(s): I10 - Essential (primary) hypertension (4) Diabetes mellitus type 2 with complications: Code(s): E11.8 - Type 2 diabetes mellitus with unspecified complications Category: Medical (5) BIRDIE (generalized anxiety disorder): Comment: Doing well on escitalopram 10 mg p.o. daily Continue referred to counseling. wellbutrin xl 150 mg QD to quell ED side effects and improve BIRDIE sx. hydroxyzine 25mg po BID PRN anxiety/sleep Code(s): F41.1 - Generalized anxiety disorder Category: Medical (6) Severe obesity (BMI 35.0-35.9 with comorbidity): Code(s): E66.01 - Morbid (severe) obesity due to excess calories; Z68.35 - Body mass index [BMI] 35.0-35.9, adult Category: Medical (7) Aqpzy-Pngtepask-Sgdxd (WPW) syndrome: Code(s): I45.6 - Pre-excitation syndrome Category: Medical Plan . Orders: Orders AMB Hemoglobin A1c Today Z13.9 - Encounter for screening, unspecified Comprehensive Met. Panel Today E11.8 - Type 2 diabetes mellitus with unspecified complications, I10 - Essential (primary) hypertension Medications: New diclofenac sodium 1% (Voltaren Arthritis Pain) apply to single elbow, wrist or hand; for hand includes palm/fingers/back of hand 2 grams topical QID PRN 100 grams 2RF pain tizanidine (Zanaflex) 4 mg PO BID PRN 10 tabs 0RF muscle spasticity
[2024-06-11 13:01] VITALS: BP 138/80; PULSE 105; RESP 14; O2SAT 96; BMI 36.8
[2024-06-11 17:19] VITALS: PULSE 90
== END 2024-06-11 13:34 | disposition home or self-care (01) ==
PROVIDERS: PCP Nurse Practitioner Family; Visit Provider Nurse Practitioner Family
DX: M77.11 Lateral epicondylitis, right elbow (principal); M62.830 Muscle spasm of back; I10 Essential (primary) hypertension; E11.8 Type 2 diabetes mellitus with unspecified complications; F41.1 Generalized anxiety disorder; E66.01 Morbid (severe) obesity due to excess calories; Z68.35 Body mass index [BMI] 35.0-35.9, adult; I45.6 Pre-excitation syndrome; Z13.9 Encounter for screening, unspecified

== ENCOUNTER → 2024-06-11 12:56 | Outpatient (BNVA) | payer OTHER, SELFPAY | PROVIDERS: PCP Nurse Practitioner Family; Visit Provider Nurse Practitioner Family ==

== ENCOUNTER 2024-06-11 13:29 | Outpatient (REF) | payer OTHER, SELFPAY ==
[2024-06-11 18:04] LABS: Alanine Aminotransferase 57 U/L (0-40); Albumin Level 4.4 g/dL (3.5-5.0); Alkaline Phosphatase 85 U/L (39-117); Anion Gap 15 (12-20); Aspartate Amino Transferase 40 U/L (5-37); Bilirubin Total 0.4 mg/dL (0.0-1.0); Blood Urea Nitrogen 16 mg/dL (9-16); Carbon Dioxide 23 mmol/L (22-29); Chloride 103 mmol/L (96-108); Cholesterol 266 mg/dL (<200); Estimated Glomerular Filt Rate > 60; Glucose Random 238 mg/dL (60-115); HDL Cholesterol 34 mg/dL (>40); Potassium 3.8 mmol/L (3.3-5.1); Sodium 137 mmol/L (135-145); Total Protein 8.3 g/dL (6.5-8.0); Triglycerides 1236 mg/dL (<150)
[2024-06-11 18:19] LABS: Folate 13.7 ng/mL (> or = 4.0); Vitamin B12 485 pg/mL (200-900)
[2024-06-19 15:54] LABS: PSA, Ultra Sensitive 0.27 ng/mL
== END 2024-06-11 13:30 | disposition home or self-care (01) ==
LOC: HO.WFDLDS 13:29
PROVIDERS: Visit Provider Nurse Practitioner Family
DX: Z12.5 Encounter for screening for malignant neoplasm of prostate (principal); I10 Essential (primary) hypertension; E11.8 Type 2 diabetes mellitus with unspecified complications; M77.11 Lateral epicondylitis, right elbow; M62.830 Muscle spasm of back; F41.1 Generalized anxiety disorder; E66.01 Morbid (severe) obesity due to excess calories; Z68.35 Body mass index [BMI] 35.0-35.9, adult; I45.6 Pre-excitation syndrome; Z71.3 Dietary counseling and surveillance
CPT/HCPCS: 36415; 80053; 80061; 82607; 82746; 83036; 84153; 96127; 99212

== ENCOUNTER 2024-12-22 08:47 | Outpatient (AMB) | payer OTHER, SELFPAY ==
--- NOTE | 2024-12-22 08:50 | MHC.PC.OV ---
Vital Signs 12/22/24 09:01 Height 5 ft 9 in Weight 231 lb 2 oz BMI 34.1 BP 124/74 Blood Pressure Location Lt brachial Position Sitting Respiration 12 Pulse 88 Pulse Source Pulse Oximeter Temp 96.9 F Temp Source Oral Pulse Oximetry (%) 96 Oxygen Delivery Method Room Air Intake Visit Reasons: having urinating issues Intake Note: Patient c/o frequent urination x 1 week. Evaporator Operator Required: No Allergies Penicillins (PENICILLINS) Allergy (Unknown, Verified 12/22/24 09:25) UNKNOWN Medication List - Last Reconciled 12/22/24 by Keisha Hayes, CUT OFF MACHINE HELPER- bupropion HCl XL (Wellbutrin XL) 150 mg PO QAM diclofenac sodium 1% (Voltaren Arthritis Pain) 2 grams topical QID PRN escitalopram oxalate (Lexapro) 10 mg PO DAILY hydrochlorothiazide 12.5 mg PO QAM hydroxyzine HCl 25 mg PO BID PRN lidocaine 5% 1 patch topical DAILY lorazepam (Ativan) 1 mg PO DAILY PRN metformin ER 500 mg PO QPM tizanidine (Zanaflex) 4 mg PO BID PRN Tobacco use date assessed: 12/22/24 Dental Screening Dental Screen Date: 12/22/24 Did you have a dental visit in the last 12 months?: Yes Did you have a dental problem in the last 6 months where you did not have access to dental care?: No Was dental information given to patient?: Patient has dentist HPI HPI Comments History of Present Illness Details 44 Y/O M with WPW, BIRDIE, DM2, HTN, HSV2, Ramsy Asif Syndrome (2023), ELINOR on CPAP, HLD, Elevated LFT, Erectile Dysfunction, Family hx: Cousin age 44 ? r/t DM; No other changes Surgical hx: WPW syndrome with successful ablation in 2016 Social: , wood floors Health Maintenance: Tdap 09/05/12, updated today PSA 0.27 06/2024 Colon Specialists: Neuro* Cards GI Ortho Gen Surg consult rec hemorroidectomy 04/2024 Optho History of Present Illness - The patient is a 34-year-old male presenting for a complete physical examination and management of chronic conditions. - Type 2 Diabetes Mellitus with significant increase in A1c from 5.9 to 10.3, irregular Metformin intake. Polyuria, dry mouth. Overdue for DM Eye Exam. - Essential Hypertension managed with hydrochlorothiazide. - Major Depressive Disorder and Anxiety well-maintained on meds; hydroxyzine for anxiety noted. - Obesity noted, BMI 34.1. - Known elevated liver function tests. - WPW overdue for Cards FU Last visit 12/2023 - ELINOR not using CPAP as ordered. - Health maintenance: eye exam referral, colonoscopy planning, hemorrhoidal management. Health Maintenance - Discussion and recommendation for a tetanus booster shot, overdue since 2012. - Referral for an ophthalmology exam due to high blood glucose levels. - Discussion on the importance of colonoscopy by age 45. - Hemorrhoidal disease management and referral for possible removal. - Emphasis on the need for lifestyle and dietary modifications to manage obesity and improve diabetes control. Review of Systems - General: Denies recent hospitalizations, new surgeries since last visit. - Neurological: Denies current seeing of neurology; past resolution of previous neuro-related condition. - Psychological: Reports improved mood and anxiety control. - Respiratory: Denies unmet needs with cardiology; visit suggested. - Gastrointestinal: Reports hemorrhoidal issues, intermittent bother. - Endocrine: Reports urinary frequency, dry mouth correlated with elevated glucose. - Genitourinary: Reports urinary frequency. - Musculoskeletal: No new injuries or concerns reported. - Dermatological: Skin checked as part of the physical examination. - Ophthalmology: Due for an eye examination. Physical Exam General: Well developed, well nourished, in no acute distress. Appears stated age. Obesity with a BMI of 34.1. Head: Normocephalic, atraumatic. Eyes: Pupils are equal, round and reactive to light and accommodation. Conjunctivae are clear. Vision grossly normal. Ears: TMs clear AU, EACS WNL Nose: Patent, without discharge. Neck: Supple, no adenopathy or thyromegaly. Breast: Edu on SBE Lungs: Clear to auscultation bilaterally. No rales, rhonchi or wheeze noted. Good air flow in all lopez. Heart: Regular rate and rhythm. No murmurs, click, rubs or gallops are noted. Abdomen: Bowel sounds present in all quadrants. The abdomen is soft, nontender, with no masses or organomegaly noted. No hernias are noted. : Deferred. Reviewed BRODIE & recommendations Pulses: Peripheral pulses are equal and palpable bilaterally. Extremities: No clubbing, cyanosis nor edema is noted. Neurologic: Gait and station normal. Cranial Nerves 2-12 intact. Motor strength grossly symmetrical and intact. No sensory loss. Balance normal. Normal sensation and vibration in feet. Skin: No rashes, ulcers, or lesions noted. Turgor is good. Skin color is good. Hair and nails are without abnormalities. Psych: Normal eye contact, affect and mood appropriate, and normal interactions. Patient is alert and appropriate to context. Results - Labs: Hemoglobin A1c elevated at 10.3 Discussion Notes During the visit, I discussed with the patient the critical elevation of his Hemoglobin A1c to 10.3, emphasizing the associated risk of severe complications with uncontrolled diabetes. Due to incomplete adherence to Metformin, we discussed doubling the dosage to 1000 mg twice daily and stressed the importance of consistent medication intake with meals to minimize gastrointestinal upset. The potential need for insulin therapy was reviewed, though not initiated at this time. We reviewed health maintenance needs, including updating tetanus vaccine, scheduling an ophthalmology appointment to monitor for diabetes-related retinal changes, and planning for a colonoscopy. I also emphasized lifestyle modifications for managing obesity and diabetes, including the benefits of weight loss. Referral for hemorrhoidal evaluation was updated. We discussed recent loss in family history and no new neurological concerns. Follow-up in three months was planned to reassess diabetes control and medication adjustments. Assessment and Plan 1. Type 2 Diabetes Mellitus - Increase Metformin to 1000 mg BID with meals; re-evaluate HbA1c in three months. - Ophthalmology referral for retinopathy assessment. 2. Essential Hypertension - Continue hydrochlorothiazide; monitor for control. 3. Major Depressive Disorder and Generalized Anxiety Disorder - Maintain current medication; monitor mood and anxiety. 4. Obesity - Address with lifestyle modification; encourage weight loss. 5. Hemorrhoidal disease - Referral updated; consider during colonoscopy. - Dr Watts, ? able to do colon and hemorrhoid removal 6. tdap today 7. Labs today 8. Schedule Cards FU Patient Instructions - Take Metformin, one dose in the morning and one dose in the evening with food. - Get your tetanus shot today before you leave. - Schedule an eye exam with a doctor in the [place] area. - Plan for a colonoscopy and hemorrhoid consultation. - Monitor your blood sugar regularly and follow up in three months. Consent Patient was informed and verbally consented to the use of an ambient scribe for clinic note documentation during this visit. An additional 40 minutes was spent addressing the problem(s) noted at todays visit. This includes time spent before the visit reviewing the chart, time spent during the visit, and time spent after the visit on documentation reviewing laboratory results, diagnostic imaging, medications, performing a medically necessary evaluation, counseling on diagnoses, care coordination, ordering appropriate tests, ordering appropriate medications, review of tests performed by other providers, reporting test results with the patient, communication with other healthcare providers. [facility] Medical History (Updated 12/22/24 @ 09:58 by Keisha Hayes, [facility]) Acute hemorrhoid Anxiety Back pain Excessive daytime sleepiness External hemorrhoids with complication History of prediabetes Knee pain Palpitations Sleep difficulties Snoring Tongue abnormality Weakness on left side of face Vfbwn-Womgpquko-Ppvhe (WPW) syndrome Surgical History H/O cardiac radiofrequency ablation Family History Father Asthma Hypertension Diabetes Paternal Grandmother Hypertension Diabetes Brother Hypertension Social History Household Members: Spouse and Children Household Members Other:: children x3, dog Housing: House Alcohol intake: former Patient Tobacco Use Status: Never used Tobacco e-Cigarette/Vaping Use: Never Used Second Hand Smoke Exposure: No service: No 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al status: employed 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 1. Little interest or pleasure in doing things: not at all 2. Feeling down, depressed, or hopeless: not at all 3. Trouble falling or staying asleep, or sleeping too much: not at all 4. Feeling tired or having little energy: not at all 5. Poor appetite or overeating: not at all 6. Feeling bad about yourself - or that you are a failure or have let yourself or your family down: not at all 7. Trouble concentrating on things, such as reading the newspaper or watching television: not at all 8. Moving or speaking so slowly that other people could have noticed. Or the opposite - being so fidgety or restless that you have been moving around a lot more than usual: not at all 9. Thoughts that you would be better off or of hurting yourself in some way: not at all Total score: 0 Depression Screening Interpretation: Negative Depression Screening Done: Yes 71661 - PHQ-9 Billing: Yes Source: Developed by Drs. Kyrie Cisneros, Gabi Ribeiro, Neftali Davenport and colleagues, with an educational ba from [employer]. Thrive Questionnaire Date Thrive assessed: 12/22/24 I am a: Patient What is your living situation today?: I have a steady place to live Within the past 12 months, did the food you bought not last and you didn't have the money to get more?: I choose not to answer this question Within the past 12 months, did you worry whether your food would run out before you got money to buy more?: I choose not to answer this question Do you have trouble paying for medicines?: No Do you have trouble getting transportation to medical appointments?: No Do you have trouble paying your heating and electricity bill?: No Do you have trouble taking care of your child, family member or friend?: No Do you have trouble with day-to-day activities such as bathing, preparing meals, shopping, managing finances, etc.?: No Are you currently unemployed and looking for a job?: I choose not to answer this question Are you interested in more education?: I choose not to answer this question Please select the resources that you would like help with: None Currently or been in a relationship where the following occur: I choose not to answer THRIVE Score: 0 AUDIT C Alcohol Use Questionnaire (AUDIT-C) 1. How often do you have a drink containing alcohol?: Never 3. How often do you have six or more drinks on one occasion?: Never Total Score: 0 Score Reviewed/Action Taken: Yes BIRDIE-7 AMB Questionnaire BIRDIE-7 Date BIRDIE - 7 assessed: 12/22/24 Feeling nervous, anxious, or on edge: 0 = Not at all Not being able to stop or control worryin = Not at all Worrying too much about different things: 0 = Not at all Trouble relaxin = Not at all Being so restless that it is hard to sit still: 0 = Not at all Becoming easily annoyed or irritable: 0 = Not at all Feeling afraid as if something awful might happen: 0 = Not at all Total BIRDIE-7 score (0-4 normal; 5-9 mild; 10-14 moderate; 15-21 severe): 0 Source: Developed by Drs. Kyrie Cisneros, Gabi Ribeiro, Neftali Davenport and colleagues, with an educational ba from [employer]. BIRDIE-7 Assessment Billing BIRDIE-7 Assessment Tool: BIRDIE-7 Assessment 57210 Physical exam (Primary Care) Vital Signs: Last Vital Signs Temp 96.9 F 12/22/24 09:01 Pulse 88 12/22/24 09:01 Resp 12 12/22/24 09:01 BP 124/74 12/22/24 09:01 Pulse Ox 96 12/22/24 09:01 Oxygen Delivery Method Room Air 12/22/24 09:01 BMI result Body Mass Index 34.1 BMI Assessment/Plan discussion: High BMI High, discussed plan: lifestyle Tobacco/Smoking Status: Tobacco use Status Tobacco use date assessed 12/22/24 12/22/24 08:51 Patient Tobacco Use Status Never used Tobacco 12/22/24 08:51 e-Cigarette/Vaping Use Never Used 12/22/24 08:51 PHQ-9: PHQ-9 Score PHQ-9: Total score 0 12/22/24 09:25 Depression Screening Interpretation: Negative Thrive Assessment: Date of Thrive Assessment Date Thrive assessed 12/22/24 12/22/24 08:51 Currently or been in a relationship where the following occur: I choose not to answer Office Procedures Diabetic Foot Exam Details: NORMAL VIBRATORY AND MONOFILAMENT TESTING BILAT G9226 - Diabetic Foot Exam Results AMB Hemoglobin A1c AMB Hemoglobin A1c 10.3 % Last Edit by Hong Cochran MA on 12/22/24 09:16 Immunizations Boostrix Tdap 2.5 Lf unit-8 mcg-5 Lf/0.5 mL intramuscular syringe Performing Provider: SUSIE Phillips Performing Location: [facility] Administered by: Hong Cochran MA on 12/22/24 09:51 Dose Route Admin Location Dispensed Lot Number Expiration Date [facility] Procurement [employer] 0.5 mL IM Right Deltoid 0.5 mL [id number] 03/29/27 [id number] [employer] Total Dispensed Waste 0.5 mL 0 % VIS Given Date VIS Provided VIS Publication Date 12/22/24 Single Vaccine 21 Eligibility Eligibility Date Funding Source Not [facility] Eligible 12/22/24 Private Results Reviewed Results Reviewed: Laboratory Last Values Hgb A1c (Clinic) 10.3 % (4.0-6.0) H 12/22/24 09:05 Coding Level of Care Code Est Pt Level 5 (79546) Est Pt Prev Care 40-64y(07162) Diagnoses Encounter for general adult medical examination without abnormal findings Z00.00 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.8 Obesity (BMI 30-39.9) E66.9 BIRDIE (generalized anxiety disorder) F41.1 Primary hypertension I10 Hypertension type: primary hypertension Ucyjq-Nogukxkni-Kpgom (WPW) syndrome I45.6 Mixed hyperlipidemia E78.2 Hyperlipidemia type: mixed hyperlipidemia Elevated LFTs R79.89 Hemorrhoids, unspecified hemorrhoid type K64.9 Hemorrhoid type: unspecified Drug-induced erectile dysfunction N52.2 ELINOR on CPAP G47.33 Screen for colon cancer Z12.11 Need for Tdap vaccination Z23 CPT Codes Diabetic Foot Exam - CPT: G9226 - Diabetic Foot Exam ([id number]) Additional Codes BIRDIE-7 Assessment Billing - BIRDIE-7 Assessment Tool: BIRDIE-7 Assessment 76050 ([id number]) PHQ-9 - 15062 - PHQ-9 Billing: Yes ([id number]) Assessment & Plan Assessment & Plan (1) Encounter for general adult medical examination without abnormal findings: Onset Date: ~12/22/24 Code(s): Z00.00 - Encounter for general adult medical examination without abnormal findings Category: Medical (2) Diabetes mellitus type 2 with complications: Comment: htn and hyperglycemia Code(s): E11.8 - Type 2 diabetes mellitus with unspecified complications Category: Medical (3) Obesity (BMI 30-39.9): Code(s): E66.9 - Obesity, unspecified Category: Medical (4) BIRDIE (generalized anxiety disorder): Comment: Doing well on escitalopram 10 mg p.o. daily Continue referred to counseling. wellbutrin xl 150 mg QD to quell ED side effects and improve BIRDIE sx. hydroxyzine 25mg po BID PRN anxiety/sleep Code(s): F41.1 - Generalized anxiety disorder Category: Medical (5) Hypertension: Comment: At goal < 130/80 on hydrochlorothiazide 12.5 mg daily. Continue Code(s): I10 - Essential (primary) hypertension Category: Medical Qualifiers: Hypertension type: primary hypertension Qualified Code(s): I10 - Essential (primary) hypertension (6) Ucoww-Uemormcrw-Vxehv (WPW) syndrome: Code(s): I45.6 - Pre-excitation syndrome Category: Medical (7) Hyperlipidemia: Comment: LDL GOAL < 70, UPDATE TODAY, START STATIN NEEDED Code(s): E78.5 - Hyperlipidemia, unspecified Category: Medical Qualifiers: Hyperlipidemia type: mixed hyperlipidemia Qualified Code(s): E78.2 - Mixed hyperlipidemia (8) Elevated LFTs: Code(s): R79.89 - Other specified abnormal findings of blood chemistry Category: Medical (9) Hemorrhoid: Comment: REFER TO DR WATTS FOR REMOVAL Code(s): K64.9 - Unspecified hemorrhoids Category: Medical Qualifiers: Hemorrhoid type: unspecified Qualified Code(s): K64.9 - Unspecified hemorrhoids (10) Drug-induced erectile dysfunction: Comment: wellbutrin xl 150mg po QAM Code(s): N52.2 - Drug-induced erectile dysfunction Category: Medical (11) ELINOR on CPAP: Onset Date: ~10/2023 Comment: Mild ELINOR recommend AUtoPAP 5-20 cm h20 sleep study 10/2023 [facility] - NOT USING Code(s): G47.33 - Obstructive sleep apnea (adult) (pediatric) Category: Medical (12) Screen for colon cancer: Comment: REFER TO DR WATTS FOR FIRST SCREENING COLON Code(s): Z12.11 - Encounter for screening for malignant neoplasm of colon Category: Medical (13) Need for Tdap vaccination: Code(s): Z23 - Encounter for immunization Category: Medical Plan . Orders: Orders AMB Hemoglobin A1c Today E11.8 - Type 2 diabetes mellitus with unspecified complications TDaP Immunization Today Z23 - Encounter for immunization Comprehensive Met. Panel 3 Months E11.8 - Type 2 diabetes mellitus with unspecified complications, E78.5 - Hyperlipidemia, unspecified, I10 - Essential (primary) hypertension, R79.89 - Other specified abnormal findings of blood chemistry Lipid Panel 3 Months E11.8 - Type 2 diabetes mellitus with unspecified complications, E78.5 - Hyperlipidemia, unspecified, I10 - Essential (primary) hypertension, R79.89 - Other specified abnormal findings of blood chemistry Microalbumin, Random (w Creat) Today E11.8 - Type 2 diabetes mellitus with unspecified complications UA CC w/rflx Micro + Cult Today E11.8 - Type 2 diabetes mellitus with unspecified complications, R30.0 - Dysuria Vitamin B12 and Folate 3 Months E11.8 - Type 2 diabetes mellitus with unspecified complications, E78.5 - Hyperlipidemia, unspecified, I10 - Essential (primary) hypertension, R79.89 - Other specified abnormal findings of blood chemistry Referrals General Surgery Referral K64.4 - Residual hemorrhoidal skin tags, Z12.11 - Encounter for screening for malignant neoplasm of colon Ophthalmology Referral E11.8 - Type 2 diabetes mellitus with unspecified complications Medications: Changed From metformin ER 500 mg PO QPM 90 tabs 1RF To metformin ER 1,000 mg (2 x 500 mg) PO BID 360 tabs 1RF Refilled bupropion HCl XL (Wellbutrin XL) 150 mg PO QAM 90 tabs 1RF escitalopram oxalate (Lexapro) 10 mg PO DAILY 90 tabs 1RF Discontinued tizanidine (Zanaflex) Discontinued Reason: Patient Completed Course 4 mg PO BID PRN 10 tabs 0RF muscle spasticity Patient Instructions: Health screenings for men You should visit your health care provider regularly, even if you feel healthy. The purpose of these visits is to: Screen for medical issues Assess your risk for future medical problems Encourage a healthy lifestyle Update vaccinations and other preventive care services Help you get to know your provider in case of an illness Information Even if you feel fine, you should still see your provider for regular checkups. These visits can help you avoid problems in the future. For example, the only way to find out if you have high blood pressure is to have it checked regularly. High blood sugar and high cholesterol level also may not have any symptoms in the early stages. Simple blood tests can check for these conditions. There are specific times when you should see your provider or receive specific health screenings. The [place] Preventive Services Task Force publishes a list of recommended screenings. Below are screening guidelines for men ages 40 to 64. BLOOD PRESSURE SCREENING Have your blood pressure checked at least once every year. Watch for blood pressure screenings in your area. Ask your provider if you can stop in to have your blood pressure checked. Ask your provider if you need your blood pressure checked more often if: You have diabetes, heart disease, kidney problems, or are overweight or have certain other health conditions You have a first-degree relative with high blood pressure You are Black Your blood pressure top number is from 120 to 129 mm Hg, or the bottom number is from 70 to 79 mm Hg If the top number is 130 mm Hg or greater or the bottom number is 80 mm Hg or greater, this is considered stage 1 hypertension. Schedule an appointment with your provider to learn how you can lower your blood pressure. Effects of age on blood pressure CHOLESTEROL SCREENING Cholesterol screening should begin at age 35 for men with no known risk factors for coronary heart disease. Repeat cholesterol screening should take place: Every 5 years for men with normal cholesterol levels More often if changes occur in lifestyle (including weight gain and diet) More often if you have diabetes, heart disease, kidney problems, or certain other conditions COLORECTAL CANCER SCREENING If you are under age 45, talk to your provider about getting screened. You may need to be screened if you have a strong family history of colon cancer or polyps. Screening may also be considered if you have risk factors such as a history of inflammatory bowel disease or polyps. If you are age 45 to 75, you should be screened for colorectal cancer. There are several screening tests available: A stool-based fecal occult blood (gFOBT) or fecal immunochemical test (FIT) every year A stool sDNA test every 1 to 3 years Flexible sigmoidoscopy every 5 years or every 10 years with stool testing FIT done every year CT colonography (virtual colonoscopy) every 5 years Colonoscopy every 10 years You may need a colonoscopy more often if you have risk factors for colorectal cancer, such as: Ulcerative colitis A personal or family history of colorectal cancer A history of growths in your colon called adenomatous polyps DENTAL EXAM Go to the dentist once or twice every year for an exam and cleaning. Your dentist will evaluate if you have a need for more frequent visits. DIABETES SCREENING All adults who do not have risk factors for diabetes should be screened starting at age 35 and repeated every 3 years. If you have other risk factors for diabetes, such as a first degree relative with diabetes, overweight or obesity, high blood pressure, prediabetes, or a history of heart disease, you may be tested more often. If you are overweight and have other risk factors, such as high blood pressure and are planning to become , screening is recommended. EYE EXAM Have an eye exam every 2 to 4 years ages 40 to 54 and every 1 to 3 years ages 55 to 64. Your provider may recommend more frequent eye exams if you have vision problems or glaucoma risk. Have an eye exam that includes an examination of your retina (back of your eye) at least every year if you have diabetes. IMMUNIZATIONS Commonly needed vaccines include: Flu shot: get one every year COVID-19 vaccine: ask your provider what is best for you Tetanus-diphtheria and acellular pertussis (Tdap) vaccine: have as one of your tetanus-diphtheria vaccines if you did not receive it as an adolescent Tetanus-diphtheria: have a booster (or Tdap) every 10 years Varicella vaccine: receive 2 doses if you never had chickenpox or the varicella vaccine and were born in 1979 or after Hepatitis B vaccine: receive 2, 3, or 4 doses, depending on your exact circumstances, if you did not receive these as a child or adolescent, until age 59 Shingles (herpes zoster) vaccine: at or after age 50 Ask your provider if you should receive other immunizations, especially if you have certain medical conditions, such as diabetes or are at increased risk for some diseases such as pneumonia. INFECTIOUS DISEASE SCREENING Screening for hepatitis C: all adults ages 18 to 79 should get a one-time test for hepatitis C. Screening for human immunodeficiency virus (HIV): all people ages 15 to 65 should get a one-time test for HIV. Depending on your lifestyle and medical history, you may need to be screened for infections such as syphilis, chlamydia, and other infections. LUNG CANCER SCREENING You should have an annual screening for lung cancer with low-dose computed tomography (LDCT) if: You are age 50 to 80 years AND You have a 20 pack-year smoking history AND You currently smoke or have quit within the past 15 years OSTEOPOROSIS SCREENING If you are age 50 to 64 and have risk factors for osteoporosis, you should discuss screening with your provider. Risk factors can include long-term steroid use, low body weight, smoking, heavy alcohol use, having a fracture after age 50, or a family history of hip fracture or osteoporosis. Osteoporosis PHYSICAL EXAM All adults should visit their provider from time to time, even if they are healthy. The purpose of these visits is to: Screen for diseases Assess risk of future medical problems Encourage a healthy lifestyle Update vaccinations and other preventive care services Maintain a relationship with a provider in case of an illness Your height, weight, and body mass index (BMI) should be checked at every exam. During your exam, your provider may ask you about: Depression and anxiety Diet and exercise Alcohol and tobacco use Safety, such as use of seat belts and smoke detectors Your medicines and risk for interactions PROSTATE CANCER SCREENING If you're 55 through 69 years old, before having the test, talk to your provider about the pros and cons of having a PSA test. Ask about: Whether screening decreases your chance of dying from prostate cancer. Whether there is any harm from prostate cancer screening, such as side effects from testing or overtreatment of cancer when discovered. Whether you have a higher risk of prostate cancer than others. If you are age 55 or younger, screening is not generally recommended. You should talk with your provider about if you have a higher risk for prostate cancer. Risk factors include: Having a family history of prostate cancer (especially a brother or father) Being If you choose to be tested, the PSA blood test is repeated over time (yearly or less often), though the best frequency is not known. Prostate examinations are no longer routinely done on men with no symptoms. Prostate cancer SKIN EXAM Your provider may check your skin for signs of skin cancer, especially if you're at high risk. People at high risk include those who have had skin cancer before, have close relatives with skin cancer, or have a weakened immune system. TESTICULAR EXAM The [place] Preventive Services Task Force (USPSTF) now recommends against performing testicular self-exams. Doing testicular self-exams has been shown to have little to no benefit.
[2024-12-22 09:01] VITALS: BP 124/74; PULSE 88; RESP 12; TEMP 36.1; O2SAT 96; BMI 34.1
== END 2024-12-22 10:03 | disposition home or self-care (01) ==
LOC: HO.HMCFM 08:48
PROVIDERS: PCP Nurse Practitioner Family; Visit Provider Nurse Practitioner Family
DX: Z00.00 Encounter for general adult medical examination without abnormal findings (principal); E11.69 Type 2 diabetes mellitus with other specified complication; E66.9 Obesity, unspecified; Z68.34 Body mass index [BMI] 34.0-34.9, adult; I45.6 Pre-excitation syndrome; F41.1 Generalized anxiety disorder; I10 Essential (primary) hypertension; E78.2 Mixed hyperlipidemia; K64.9 Unspecified hemorrhoids; N52.2 Drug-induced erectile dysfunction; G47.33 Obstructive sleep apnea (adult) (pediatric); Z23 Encounter for immunization

== ENCOUNTER 2024-12-22 09:51 | Outpatient (REF) | payer OTHER, SELFPAY ==
[2024-12-22 11:16] LABS: Appearance Urine Clear; Glucose Urine UA >=1000 mg/dL (Negative); PH 6.0 (5.0-9.0); Specific Gravity - Urine >= 1.030 (1.005-1.025); UMIC TRIGGER UACC YES
[2024-12-22 11:56] LABS: Microalbum/Creatinine Ratio Ur 284.0 ug/mg cr (<30)
[2024-12-22 12:37] LABS: Alanine Aminotransferase 43 U/L (0-40); Albumin Level 4.6 g/dL (3.5-5.0); Alkaline Phosphatase 115 U/L (39-117); Anion Gap 14 (12-20); Aspartate Amino Transferase 23 U/L (5-37); Blood Urea Nitrogen 13 mg/dL (9-16); Calcium 9.5 mg/dL (8.4-10.2); Carbon Dioxide 26 mmol/L (22-29); Chloride 100 mmol/L (96-108); Cholesterol 321 mg/dL (<200); Estimated Glomerular Filt Rate > 60; HDL Cholesterol 33 mg/dL (>40); Potassium 4.2 mmol/L (3.3-5.1); Sodium 136 mmol/L (135-145); Total Protein 8.1 g/dL (6.5-8.0); Triglycerides 1705 mg/dL (<150)
== END 2024-12-22 09:52 | disposition home or self-care (01) ==
LOC: HO.WFDLDS 09:51
PROVIDERS: Visit Provider Nurse Practitioner Family
DX: Z00.00 Encounter for general adult medical examination without abnormal findings (principal); Z23 Encounter for immunization; E11.8 Type 2 diabetes mellitus with unspecified complications; E66.9 Obesity, unspecified; Z68.34 Body mass index [BMI] 34.0-34.9, adult; F41.1 Generalized anxiety disorder; I10 Essential (primary) hypertension; I45.6 Pre-excitation syndrome; E78.2 Mixed hyperlipidemia; R79.89 Other specified abnormal findings of blood chemistry; K64.9 Unspecified hemorrhoids; N52.2 Drug-induced erectile dysfunction; G47.33 Obstructive sleep apnea (adult) (pediatric); Z71.3 Dietary counseling and surveillance
CPT/HCPCS: 36415; 80053; 80061; 81001; 82043; 82570; 83036; 90471; 90715; 96127; 99212; 99396

== ENCOUNTER 2025-01-19 10:00 | Outpatient (AMB) | payer OTHER, SELFPAY ==
--- NOTE | 2025-01-19 10:02 | A.OFFVIS_ITS ---
Vital Signs 01/19/25 10:09 Height 5 ft 9 in Weight 224 lb BMI 33.1 BP 131/80 Blood Pressure Location Rt brachial Position Sitting Pulse 73 Intake Visit Reasons: complicated hemorrhoids Intake Note: Patient scheduled today's appointment to re- discuss hemorrhoid surgery. Patient c/o: on and off bleeding. Denies constipation, diarrhea. 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 Required: No Accompanied by: Self / Same As Patient Allergies Penicillins (PENICILLINS) Allergy (Unknown, Verified 01/19/25 10:07) UNKNOWN Medication List - Last Reconciled 01/19/25 by Ran Watts MD atorvastatin (Lipitor) 40 mg PO BEDTIME bupropion HCl XL (Wellbutrin XL) 150 mg PO QAM escitalopram oxalate (Lexapro) 10 mg PO DAILY [Freestyle lite glucometer check blood sugar once daily in the morning before eating] [Freestyle lite lancets test blood glucose once daily in the morning before eating] [Freestyle lite test strips test once daily in the morning before eating] hydrochlorothiazide 12.5 mg PO QAM hydroxyzine HCl 25 mg PO BID PRN lorazepam (Ativan) 1 mg PO DAILY PRN metformin ER 1,000 mg (2 x 500 mg) PO BID HPI HPI complicated hemorrhoids: Details: 45-year-old male here for he had issues. I had actually seen him last April, for a large external hemorrhoid. He had been complaining of bleeding and pain at that time. However, he wanted to hold off on surgical intervention He continues to have problems with this so he wants to proceed with surgery. Describes pain, swelling and itching in the area. Once in a while he would notice small amounts of blood. He has known Exaco-Wbvbycrep-Ywvpf syndrome. He denies shortness of breath or chest pain. COUNTS INCLUDE 234 BEDS AT THE [facility] Medical History External hemorrhoids with complication Weakness on left side of face Tongue abnormality Sleep difficulties Snoring Excessive daytime sleepiness Palpitations Acute hemorrhoid Knee pain Back pain History of prediabetes Anxiety Gxqfg-Cjicwddiw-Rfyui (WPW) syndrome Surgical History H/O cardiac radiofrequency ablation Family History Father Asthma Hypertension Diabetes Paternal Grandmother Hypertension Diabetes Brother Hypertension Social History Household Members: Spouse and Children Household Members Other:: children x3, dog Housing: House 75 years or older and lives alone: No Alcohol intake: former Patient Tobacco Use Status: Never used Tobacco e-Cigarette/Vaping Use: Never Used Second Hand Smoke Exposure: No service: No 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al status: employed 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[employer], 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al exposures/hazards: Yes Sexual orientation: Straight/Heterosexual Gender identity: Male Cognitive needs: No Hearing needs: Yes Vision needs: No Review of Systems Const Denies chills and Denies fever(s) Card Denies chest pain, Denies dyspnea and Denies dyspnea on exertion Resp Denies cough, Denies dyspnea and Denies dyspnea on exertion GI Reports hematochezia and Denies change in bowel habits Denies hematuria and Denies difficulty urinating Musc Denies back pain and Denies limited range of motion Neuro Denies focal weakness and Denies convulsions Psych Denies depression and Denies mood swings Physical Exam Vital Signs: Last Vital Signs Pulse 73 01/19/25 10:09 BP 131/80 01/19/25 10:09 BMI result Body Mass Index 33.1 Const General: comfortable and no acute distress Orientation/consciousness: patient oriented x3 Neck Neck: Yes no lymphadenopathy Resp Auscultation: clear to auscultation bilaterally Cardio Rhythm: regular rhythm GI Other: Rectal exam shows a large external hemorrhoid, non thrombosed, about 2.5 cm Palpation (GI): Soft to palpation, nontender and no guarding Neuro General: patient oriented x3 Assessment & Plan Assessment & Plan (1) External hemorrhoids with complication: Code(s): K64.4 - Residual hemorrhoidal skin tags Category: Medical Plan: He has this large external hemorrhoid and he has significant symptoms. He now wants to proceed with a hemorrhoidectomy. I explained the technique of exam under anesthesia and had hemorrhoidectomy. I reviewed the risks including but not limited to bleeding, infections and postop pain, as well as the benefits and alternatives. I reviewed with him what to expect postoperatively. He says he wants to proceed. Coding Level of Care Code Est Pt Level 3 (39545) Diagnoses External hemorrhoids with complication K64.4
[2025-01-19 10:09] VITALS: BP 131/80; PULSE 73; BMI 33.1
--- OUTSIDE RECORDS SUMMARY | 2025-01-19 10:38 | XMS_ITS ---
Author Name [facility] Organization Unknown Care Team Organization Name Specialty Phone Email Start Date End Da te [facility] 08/14/2022 01/26/2024 [facility], [facility] 04/16/202201/07
== END 2025-01-19 10:19 | disposition home or self-care (01) ==
LOC: HO.HGS 10:01
PROVIDERS: PCP Nurse Practitioner Family; Visit Provider Surgery
DX: K64.4 Residual hemorrhoidal skin tags (principal)
CPT/HCPCS: 99213

== ENCOUNTER → 2025-01-19 10:00 | Outpatient (BNVA) | payer OTHER, SELFPAY | PROVIDERS: PCP Nurse Practitioner Family; Visit Provider Surgery | DX: K64.4 Residual hemorrhoidal skin tags (principal) | CPT/HCPCS: 99212 ==

== ENCOUNTER 2025-03-17 14:29 | Outpatient (REF) | payer OTHER, SELFPAY ==
[2025-03-17 16:41] LABS: Alanine Aminotransferase 25 U/L (0-40); Albumin Level 4.6 g/dL (3.5-5.0); Alkaline Phosphatase 82 U/L (39-117); Anion Gap 14 (12-20); Aspartate Amino Transferase 26 U/L (5-37); Blood Urea Nitrogen 12 mg/dL (9-16); Calcium 9.6 mg/dL (8.4-10.2); Carbon Dioxide 28 mmol/L (22-29); Chloride 103 mmol/L (96-108); Cholesterol 207 mg/dL (<200); Estimated Glomerular Filt Rate > 60; HDL Cholesterol 40 mg/dL (>40); Potassium 3.6 mmol/L (3.3-5.1); Sodium 141 mmol/L (135-145); Total Protein 7.6 g/dL (6.5-8.0); Triglycerides 327 mg/dL (<150)
[2025-03-17 17:22] LABS: Folate 13.0 ng/mL (> or = 4.0); Vitamin B12 620 pg/mL (200-900)
== END 2025-03-17 14:30 | disposition home or self-care (01) ==
LOC: HO.LAB 14:29
PROVIDERS: PCP Nurse Practitioner Family; Visit Provider Nurse Practitioner Family
DX: I10 Essential (primary) hypertension (principal); E11.8 Type 2 diabetes mellitus with unspecified complications; R79.89 Other specified abnormal findings of blood chemistry; E78.5 Hyperlipidemia, unspecified
CPT/HCPCS: 36415; 80053; 80061; 82607; 82746

== ENCOUNTER 2025-03-25 08:31 | Outpatient (AMB) | payer OTHER, SELFPAY ==
--- NOTE | 2025-03-25 08:34 | A.OFFPC_ITS ---
Vital Signs 03/25/25 08:38 Height 5 ft 9 in Weight 227 lb 8 oz BMI 33.6 BP 132/72 Blood Pressure Location Lt brachial Position Sitting Respiration 12 Pulse 79 Pulse Source Pulse Oximeter Temp 97.7 F Temp Source Oral Pulse Oximetry (%) 96 Oxygen Delivery Method Room Air Intake Visit Reasons: 3 MONTHS 30 MIN ROUTINE FU LABS 1 WEEK BEFORE Intake Note: 3 Months follow up and review labs. Cab Starter Required: No Allergies Penicillins (PENICILLINS) Allergy (Unknown, Verified 03/25/25 08:35) UNKNOWN Medication List - Last Reconciled 03/25/25 by Keisha Hayes, TRIM MOUNTER- atorvastatin (Lipitor) 40 mg PO BEDTIME bupropion HCl XL (Wellbutrin XL) 150 mg PO QAM escitalopram oxalate (Lexapro) 10 mg PO DAILY [Freestyle lite glucometer check blood sugar once daily in the morning before eating] [Freestyle lite lancets test blood glucose once daily in the morning before eating] [Freestyle lite test strips test once daily in the morning before eating] hydrochlorothiazide 12.5 mg PO QAM hydroxyzine HCl 25 mg PO BID PRN lorazepam (Ativan) 1 mg PO DAILY PRN metformin ER 1,000 mg (2 x 500 mg) PO BID Tobacco use date assessed: 03/25/25 Dental Screening Dental Screen Date: 03/25/25 Did you have a dental visit in the last 12 months?: Yes Did you have a dental problem in the last 6 months where you did not have access to dental care?: No Was dental information given to patient?: Patient has dentist HPI HPI Comments History of Present Illness Details 45 Y/O M with WPW, BIRDIE, DM2, HTN, HSV2, Ramsy Asif Syndrome (2023), ELINOR on CPAP, HLD, Elevated LFT, Erectile Dysfunction, Family hx: Cousin age 44 ? r/t DM; No other changes Surgical hx: WPW syndrome with successful ablation in 2016 Social: , wood floors Health Maintenance: Tdap 2024, Flu 03/25/25 PSA 0.27 06/2024 Colon Specialists: Neuro* Cards GI Ortho Gen Surg consult rec hemorroidectomy 04/2024 Optho History of Present Illness - The patient is a 34-year-old male pres enting for a complete physical examination and management of chronic conditions. - Type 2 Diabetes Mellitus A1c improved, taking metformin, cont w/mild dry mouth, improved polyuria and dypsi. . Overdue for DM Eye Exam. - HLD taking statin w/ great improvement in lipid profile - Essential Hypertension managed with hy drochlorothiazide. - Major Depressive Disorder and Anxiety well-maintained on meds; hydroxyzine for anxiety noted. - Obesity noted, BMI > 33 - WPW overdue for Cards FU Last visit - ELINOR not using CPAP as ordered. - Needs colon and hemorrhoidectomy; on h old til a1c improved. Also needs Echo. The order , i have renewed today. Review of Systems - Constitutional: Reports fatigue; denie s recent illness - Endocrine: Reports frequent urination and thirst; denies other symptoms - Gastrointestinal: Reports right side p ain for months, comes and goes,mild. No alleviating or exacerbating factors. ; denies nausea, diarrhea, or vomiting - Genitourinary: Reports dry mouth; raul es urinary changes - Psychological: Reports anxiety Physical Exam General: Well developed, well nourished, in no acute distress. Appears stated age. Head: Normocephalic, atraumatic. Eyes: Pupils are equal, round and reactive to light and accommodation. Conjunctivae are clear. Lungs: Clear to auscultation bilaterally. No rales, rhonchi or wheeze noted. Good air flow in all lopez. Heart: Regular rate and rhythm. No murmurs, click, rubs or gallops are noted. Abdomen: Bowel sounds present in all quadrants. The abdomen is soft, nontender, with no masses or organomegaly noted. No hernias are noted. Unable to reproduce pain on RLQ Pulses: Peripheral pulses are equal and palpable bilaterally. Extremities: No clubbing, cyanosis nor edema is noted. Neurologic: Gait and station normal. Cranial Nerves 2-12 intact. Motor strength grossly symmetrical and intact. No sensory loss. Balance normal. Normal sensation and vibration in feet. Skin: No rashes, ulcers, or lesions noted. Turgor is good. Skin color is good. Hair and nails are without abnormalities. Psych: Normal eye contact, affect and mood appropriate, and normal interactions. Patient is alert and appropriate to context. Results -A1c 9.1% - See below Discussion Notes During the encounter, I discussed the patient's current A1c, emphasizing the importance of further reduction to minimize diabetes-related complications. New medication, Jardiance, was proposed to augment metformin therapy, aiming to further lower A1c. The mechanisms and side effects of Jardiance, including potential urinary tract and yeast infections with increased sugar excretion, were thoroughly explained. I recommended increased hydration and reduced sugar intake to mitigate these risks. We reviewed medication adherence, emphasizing the benefit of combining Jardiance with metformin to reduce pill burden if well- tolerated. Cholesterol levels showed tangible improvement, confirming atorvastatin compliance; continuation was advised for cardiovascular protection. We addressed the need for additional screenings, including an echocardiogram and diabetic eye exam, with specific follow-up instructions. The patient declined a flu shot and continues to evaluate CPAP therapy and an echocardiogram with cardiology. I reinforced the importance of ongoing monitoring, coordination with cardiology, and timely communication regarding urinary or side symptoms. Patient was given time to ask questions. All questions were answered to their satisfaction. Assessment and Plan 1. Type 2 Diabetes Mellitus - Cont Metformin to 1000 mg BID with bridget ls; re-evaluate HbA1c in three months. - Ophthalmology referral for retinopathy assessment. Advised to schedule - Start Jardiance 25mg. Consider Synjard y if he tolerated to reduce pill fatigue 2. Essential Hypertension - Continue hydrochlorothiazide; monitor for control. 3. Major Depressive Disorder and General ized Anxiety Disorder - Maintain current medication; monitor m ood and anxiety. 4. Obesity - Address with lifestyle modification; e ncourage weight loss. 5. Hemorrhoidal disease - Dr Watts, able to do colon and hem orrhoid removal - Needs improved A1c 6. HLD cont statin 7. Microalbumin due for repeat urine 8. Schedule Cards FU. Echo order placed along w/ update Cards referral Patient Instructions - [facility] - Drink plenty of water and limit sugar intake. - Report urinary burning or itching imme diately. - Check blood glucose levels regularly. - Continue atorvastatin and hydrochlorot hiazide as prescribed. - Ensure timely follow-up for diabetic e ye exam and echocardiogram. - Track side pain and report any changes . - Ensure coordination with your for medication management. - RTO 3 mo for routine fu labs 1 week b efore sooner PRN Consent The patient consented to the addition of Jardiance after discussing its benefits in reducing A1c levels and associated risks. Consent included an understanding of potential urinary and yeast infections as side effects, with strategies to reduce risk via hydration and diet modification. Consent was obtained verbally after detailed discussion of risks and alternative treatments, with agreement to trial the medication for one office interval. Patient was informed and verbally consented to the use of an ambient scribe for clinic note documentation during this visit. Total time spent caring for the patient today was 40 minutes. This includes time spent before the visit reviewing the chart, time spent during the visit, and time spent after the visit on documentation, reviewing laboratory results, diagnostic imaging, medications, performing a medically necessary evaluation, counseling on diagnoses, care coordination, ordering appropriate tests, ordering appropriate medications, review of tests performed by other providers, reporting test results with the patient, communication with other healthcare providers. [facility] Medical History External hemorrhoids with complication Weakness on left side of face Tongue abnormality Sleep difficulties Snoring Excessive daytime sleepiness Palpitations Acute hemorrhoid Knee pain Back pain History of prediabetes Anxiety Bdvqr-Kfqxiwpeu-Dsnyi (WPW) syndrome Surgical History H/O cardiac radiofrequency ablation Family History Father Asthma Hypertension Diabetes Paternal Grandmother Hypertension Diabetes Brother Hypertension Social History Household Members: Spouse and Children Household Members Other:: children x3, dog Housing: House Alcohol intake: former Patient Tobacco Use Status: Never used Tobacco e-Cigarette/Vaping Use: Never Used Second Hand Smoke Exposure: No service: No 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al status: employed 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 1. Little interest or pleasure in doing things: not at all 2. Feeling down, depressed, or hopeless: not at all 3. Trouble falling or staying asleep, or sleeping too much: not at all 4. Feeling tired or having little energy: not at all 5. Poor appetite or overeating: not at all 6. Feeling bad about yourself - or that you are a failure or have let yourself or your family down: not at all 7. Trouble concentrating on things, such as reading the newspaper or watching television: not at all 8. Moving or speaking so slowly that other people could have noticed. Or the opposite - being so fidgety or restless that you have been moving around a lot more than usual: not at all 9. Thoughts that you would be better off or of hurting yourself in some way: not at all Total score: 0 Depression Screening Interpretation: Negative Depression Screening Done: Yes 64801 - PHQ-9 Billing: Yes Source: Developed by Drs. Kyrie Cisneros, Gabi Ribeiro, Neftali Davenport and colleagues, with an educational ba from [employer]. Thrive Questionnaire Date Thrive assessed: 03/25/25 I am a: Patient What is your living situation today?: I have a steady place to live Within the past 12 months, did the food you bought not last and you didn't have the money to get more?: I choose not to answer this question Within the past 12 months, did you worry whether your food would run out before you got money to buy more?: I choose not to answer this question Do you have trouble paying for medicines?: No Do you have trouble getting transportation to medical appointments?: No Do you have trouble paying your heating and electricity bill?: No Do you have trouble taking care of your child, family member or friend?: No Do you have trouble with day-to-day activities such as bathing, preparing meals, shopping, managing finances, etc.?: No Are you currently unemployed and looking for a job?: I choose not to answer this question Are you interested in more education?: I choose not to answer this question Please select the resources that you would like help with: None Currently or been in a relationship where the following occur: I choose not to answer THRIVE Score: 0 BIRDIE-7 AMB Questionnaire BIRDIE-7 Date BIRDIE - 7 assessed: 03/25/25 Feeling nervous, anxious, or on edge: 0 = Not at all Not being able to stop or control worryin = Not at all Worrying too much about different things: 0 = Not at all Trouble relaxin = Not at all Being so restless that it is hard to sit still: 0 = Not at all Becoming easily annoyed or irritable: 0 = Not at all Feeling afraid as if something awful might happen: 0 = Not at all Total BIRDIE-7 score (0-4 normal; 5-9 mild; 10-14 moderate; 15-21 severe): 0 Source: Developed by Drs. Kyrie Cisneros, Gabi Ribeiro, Neftali Davenport and colleagues, with an educational ba from [employer]. BIRDIE-7 Assessment Billing BIRDIE-7 Assessment Tool: BIRDIE-7 Assessment 15457 Physical exam (Primary Care) Vital Signs: Last Vital Signs Temp 97.7 F 03/25/25 08:38 Pulse 79 03/25/25 08:38 Resp 12 03/25/25 08:38 BP 132/72 03/25/25 08:38 Pulse Ox 96 03/25/25 08:38 Oxygen Delivery Method Room Air 03/25/25 08:38 BMI result Body Mass Index 33.6 Tobacco/Smoking Status: Tobacco use Status Tobacco use date assessed 03/25/25 03/25/25 08:37 Patient Tobacco Use Status Never used Tobacco 03/25/25 08:35 e-Cigarette/Vaping Use Never Used 03/25/25 08:35 PHQ-9: PHQ-9 Score PHQ-9: Total score 0 03/25/25 08:48 Depression Screening Interpretation: Negative Thrive Assessment: Date of Thrive Assessment Date Thrive assessed 03/25/25 03/25/25 08:35 Currently or been in a relationship where the following occur: I choose not to answer Office Procedures Diabetic Foot Exam Details: normal monofilament and vibratory sensations bilat, skin intact G9226 - Diabetic Foot Exam Results AMB Hemoglobin A1c AMB Hemoglobin A1c 9.1 % Last Edit by Hong Cochran MA on 03/25/25 08:50 Results Reviewed Results Reviewed: Laboratory Last Values Hgb A1c (Clinic) 9.1 % (4.0-6.0) H 03/25/25 08:43 Laboratory 03/17/25 Result Units Range Interpretation Provider Comments Sodium Level 141 mmol/L (135-145) Potassium Level 3.6 mmol/L (3.3-5.1) Chloride Level 103 mmol/L (96-108) Carbon Dioxide Level 28 mmol/L (22-29) Anion Gap 14 (12-20) Blood Urea Nitrogen 12 mg/dL (9-16) Creatinine 0.85 mg/dL (0.5-1.4) Estimated Creatinine Clearance Calc Not Reportable Estimat Glomerular Filtration Rate > 60 Random Glucose 187 mg/dL (60-115) High Calcium Level 9.6 mg/dL (8.4-10.2) Total Bilirubin 0.9 mg/dL (0.0-1.0) Aspartate Amino Transf (AST/SGOT) 26 U/L (5-37) Alanine Aminotransferase (ALT/SGPT) 25 U/L (0-40) Alkaline Phosphatase 82 U/L (39-117) Total Protein 7.6 g/dL (6.5-8.0) Albumin 4.6 g/dL (3.5-5.0) Triglycerides Level 327 mg/dL (<150) High Cholesterol Level 207 mg/dL (<200) High LDL Cholesterol, Calculated 102 mg/dL (<100) High HDL Cholesterol 40 mg/dL (>40) Low Vitamin B12 Level 620 pg/mL (200-900) Folate 13.0 ng/mL (> or = 4.0) Coding Level of Care Code Est Pt Level 5 (80860) Complex EM visit Add On G2211 Diagnoses 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.8 Primary hypertension I10 Hypertension type: primary hypertension Mixed hyperlipidemia E78.2 Hyperlipidemia type: mixed hyperlipidemia ELINOR on CPAP G47.33 Influenza vaccination declined Z28.21 Ppoub-Fcskxrtrc-Xebjh (WPW) syndrome I45.6 Microalbuminuria due to type 2 diabetes mellitus E11.29; R80.9 CPT Codes Diabetic Foot Exam - CPT: G9226 - Diabetic Foot Exam ([id number]) Additional Codes BIRDIE-7 Assessment Billing - BIRDIE-7 Assessment Tool: BIRDIE-7 Assessment 55407 ([id number]) PHQ-9 - 80038 - PHQ-9 Billing: Yes ([id number]) Assessment & Plan Assessment & Plan (1) Diabetes mellitus type 2 with complications: Comment: htn and hyperglycemia Code(s): E11.8 - Type 2 diabetes mellitus with unspecified complications Category: Medical (2) Hypertension: Comment: At goal < 130/80 on hydrochlorothiazide 12.5 mg daily. Continue Code(s): I10 - Essential (primary) hypertension Category: Medical Qualifiers: Hypertension type: primary hypertension Qualified Code(s): I10 - Essential (primary) hypertension (3) Hyperlipidemia: Comment: LDL GOAL < 70, UPDATE TODAY, START STATIN NEEDED Code(s): E78.5 - Hyperlipidemia, unspecified Category: Medical Qualifiers: Hyperlipidemia type: mixed hyperlipidemia Qualified Code(s): E78.2 - Mixed hyperlipidemia (4) ELINOR on CPAP: Onset Date: ~10/2023 Comment: Mild ELINOR recommend AUtoPAP 5-20 cm h20 sleep study 10/2023 [facility] - NOT USING Code(s): G47.33 - Obstructive sleep apnea (adult) (pediatric) Category: Medical (5) Influenza vaccination declined: Onset Date: ~03/25/25 Code(s): Z28.21 - Immunization not carried out because of patient refusal Category: Medical (6) Luvek-Klscdnwfg-Qiykg (WPW) syndrome: Code(s): I45.6 - Pre-excitation syndrome Category: Medical (7) Microalbuminuria due to type 2 diabetes mellitus: Code(s): E11.29 - Type 2 diabetes mellitus with other diabetic kidney complication; R80.9 - Proteinuria, unspecified Category: Medical Plan . Orders: Orders CA echo transthoracic complete Today I10 - Essential (primary) hypertension, I45.6 - Pre-excitation syndrome Lipid Panel 3 Months E11.29 - Type 2 diabetes mellitus with other diabetic kidney complication, E11.8 - Type 2 diabetes mellitus with unspecified complications, E78.2 - Mixed hyperlipidemia, I10 - Essential (primary) hypertension, R80.9 - Proteinuria, unspecified Comprehensive Met. Panel 3 Months E11.29 - Type 2 diabetes mellitus with other diabetic kidney complication, E11.8 - Type 2 diabetes mellitus with unspecified complications, E78.2 - Mixed hyperlipidemia, I10 - Essential (primary) hypertension, R80.9 - Proteinuria, unspecified AMB Hemoglobin A1c Today E11.8 - Type 2 diabetes mellitus with unspecified complications, Z13.9 - Encounter for screening, unspecified Microalbumin, Random (w Creat) 3 Months E11.29 - Type 2 diabetes mellitus with other diabetic kidney complication, E11.8 - Type 2 diabetes mellitus with unspecified complications, E78.2 - Mixed hyperlipidemia, I10 - Essential (primary) hypertension, R80.9 - Proteinuria, unspecified Referrals Cardiology Referral I10 - Essential (primary) hypertension, I45.6 - Pre- excitation syndrome Medications: New empagliflozin (Jardiance) 25 mg PO DAILY 90 tabs 1RF Refilled metformin ER 1,000 mg (2 x 500 mg) PO BID 360 tabs 1RF hydrochlorothiazide 12.5 mg PO QAM 90 tabs 1RF escitalopram oxalate (Lexapro) 10 mg PO DAILY 90 tabs 1RF bupropion HCl XL (Wellbutrin XL) 150 mg PO QAM 90 tabs 1RF atorvastatin (Lipitor) 40 mg PO BEDTIME 90 tabs 2RF
[2025-03-25 08:38] VITALS: BP 132/72; PULSE 79; RESP 12; TEMP 36.5; O2SAT 96; BMI 33.6
== END 2025-03-25 09:18 | disposition home or self-care (01) ==
LOC: HO.HMCFM 08:32
PROVIDERS: PCP Nurse Practitioner Family; Visit Provider Nurse Practitioner Family
DX: E11.8 Type 2 diabetes mellitus with unspecified complications (principal); E11.29 Type 2 diabetes mellitus with other diabetic kidney complication; I10 Essential (primary) hypertension; E78.2 Mixed hyperlipidemia; G47.33 Obstructive sleep apnea (adult) (pediatric); Z28.21 Immunization not carried out because of patient refusal; I45.6 Pre-excitation syndrome; R80.9 Proteinuria, unspecified

== ENCOUNTER → 2025-03-25 08:31 | Outpatient (BNVA) | payer OTHER, SELFPAY | PROVIDERS: PCP Nurse Practitioner Family; Visit Provider Nurse Practitioner Family | DX: Z00.00 Encounter for general adult medical examination without abnormal findings (principal); E78.5 Hyperlipidemia, unspecified; F32.A Depression, unspecified; F41.9 Anxiety disorder, unspecified; E66.9 Obesity, unspecified; G47.33 Obstructive sleep apnea (adult) (pediatric); R53.83 Other fatigue; R10.9 Unspecified abdominal pain; I10 Essential (primary) hypertension; K64.9 Unspecified hemorrhoids; E78.2 Mixed hyperlipidemia; I45.6 Pre-excitation syndrome; E11.29 Type 2 diabetes mellitus with other diabetic kidney complication; R80.9 Proteinuria, unspecified; Z28.21 Immunization not carried out because of patient refusal; Z68.33 Body mass index [BMI] 33.0-33.9, adult; Z91.199 Patient's noncompliance with other medical treatment and regimen due to unspecified reason; Z79.899 Other long term (current) drug therapy | CPT/HCPCS: 83036; 96127; 99212 ==

== ENCOUNTER 2025-04-15 08:31 | Outpatient (AMB) | payer OTHER, SELFPAY ==
--- NOTE | 2025-04-15 08:36 | A.OFFPC_ITS ---
Vital Signs 04/15/25 08:39 Height 5 ft 9 in Weight 223 lb BMI 32.9 BP 124/72 Blood Pressure Location Lt brachial Position Sitting Respiration 13 Pulse 82 Pulse Source Pulse Oximeter Temp 97.6 F Temp Source Oral Pulse Oximetry (%) 96 Oxygen Delivery Method Room Air Intake Visit Reasons: severe pain in my right side Intake Note: Patient c/o severe px on right side x 2 weeks Overhead Cleaner Maintainer Required: No Allergies Penicillins (PENICILLINS) Allergy (Unknown, Verified 04/15/25 08:36) UNKNOWN Tobacco use date assessed: 04/15/25 Dental Screening Dental Screen Date: 04/15/25 Did you have a dental visit in the last 12 months?: Yes Did you have a dental problem in the last 6 months where you did not have access to dental care?: No Was dental information given to patient?: Patient has dentist HPI HPI Comments History of Present Illness Details 45 Y/O M with WPW, BIRDIE, DM2, HTN, HSV2, Ramsy Asif Syndrome (2023), ELINOR on CPAP, HLD, Elevated LFT, Erectile Dysfunction, Family hx: Cousin age 44 ? r/t DM; No other changes Surgical hx: WPW syndrome with successful ablation in 2016 Social: , wood floors Health Maintenance: Tdap 2024, Flu 03/25/25 PSA 0.27 06/2024 Colon Specialists: Neuro* Cards GI Ortho Gen Surg consult rec hemorroidectomy 04/2024 Optho History of Present Illness The patient is a 45-year-old male presenting with complaints of right-sided pain. Right upper quadrant pain: - The patient presents for follow-up of right-sided abdominal pain that has been occurring intermittently for months. - He was previously seen on March 25 and advised for supportive care, but the pain has not improved. - The pain is described as mild, non-rad iating, and localized to the right side under the ribs. - It is exacerbated by certain movements but has no other specific alleviating or exacerbating factors. - Associated symptoms such as nausea, vo miting, diarrhea, fever, and pain with urination are denied. - The pain is not associated with eating . - He reports a history of similar pain i n January 2024, for which he was evaluated in the emergency room. - A CT scan of the abdomen and pelvis on February 05, 2024, revealed a non- obstructive right kidney stone, with an unremarkable gallbladder and liver. Past Medical History - Nephrolithiasis: Patient had a non-obs tructive right kidney stone identified on a CT scan in January 2024. - Recent knee pain, which has since reso lved. - Emergency room visit in January 2024 fo r right-sided pain. Review of Systems - Constitutional: Denies fever. - Gastrointestinal: Reports intermittent , mild right-sided abdominal pain for months, exacerbated by movement. Denies nausea, vomiting, or diarrhea. Pain is not related to food intake. - Genitourinary: Denies dysuria. - Musculoskeletal: He reports that his p rior knee pain has resolved. Physical Exam General: Well developed, well nourished, in no acute distress. Appears stated age. Head: Normocephalic, atraumatic. Eyes: Pupils are equal, round and reactive to light and accommodation. Conjunctivae are clear. Scleras nonicteric Abdomen: Bowel sounds present in all quadrants. The abdomen is soft, nontender, with no masses or organomegaly noted. No hernias are noted. Tenderness noted in the right side of the abdomen, particularly under the ribs and in the R flank but i am unable to reproduce this on exam, he has some mild tenderness w/ deep palpation posterior R flank but no CVAT. Results - CT Abdomen/Pelvis (February 05, 2024): S howed a non-obstructive stone in the right kidney. The gallbladder and liver were noted to be unremarkable. Medical Decision Making The patient is a 45-year-old male who presents for follow-up of persistent, intermittent right-sided abdominal pain that has been ongoing for months. The pain is associated with movement but lacks other clear triggers, including relation to meals. He denies associated gastrointestinal or constitutional symptoms. The physical exam is largely benign, with tenderness only on deep palpation of the right posterior back, but the pain could not be reliably reproduced, making a musculoskeletal etiology less likely. A history of a non-obstructive right kidney stone on a CT scan from January 2024 places nephrolithiasis on the differential, although the current pain characteristics are atypical as the pain is non-migratory. Other right upper quadrant pathology, such as gallbladder or liver issues, is also considered, though the prior CT was reassuring. Given the chronic nature of the symptoms and the inconclusive physical examin ation, a repeat CT of the abdomen is warranted to further evaluate for an underlying cause. The imaging will be limited to the abdomen as the pain is in the upper quadrant. Plan 1. Right Upper Quadrant Pain - The patient's pain is atypical for a m usculoskeletal source as it cannot be replicated on exam, and while he has a history of a kidney stone, the current symptoms are not classic for nephrolithiasis. - Due to the chronicity of the pain and the unclear etiology, a repeat CT of the abdomen will be ordered to re-evaluate the kidneys and other upper quadrant organs. - The imaging will require prior authori zation from insurance. - No specific treatment will be advised until the etiology is determined. - Will follow up with the patient once t he CT results are available. Patient Instructions - We will order a CT scan of your belly to figure out what is causing your pain. - We need to get this approved by your [employer] company first, which usually takes about a week. - Once it is approved, the radiology dep artment will call you to schedule the appointment. - If you do not hear from them within a reasonable time, please call our office to check on the status of the order. - I will contact you to discuss the resu lts after the scan is done. Consent Patient was informed and verbally consented to the use of an ambient scribe for clinic note documentation during this visit. [facility] Medical History External hemorrhoids with complication Weakness on left side of face Tongue abnormality Sleep difficulties Snoring Excessive daytime sleepiness Palpitations Acute hemorrhoid Knee pain Back pain History of prediabetes Anxiety Plfsj-Stnpwwvej-Qshwp (WPW) syndrome Surgical History H/O cardiac radiofrequency ablation Family History Father Asthma Hypertension Diabetes Paternal Grandmother Hypertension Diabetes Brother Hypertension Social History Household Members: Spouse and Children Household Members Other:: children x3, dog Housing: House 75 years or older and lives alone: No Alcohol intake: former Patient Tobacco Use Status: Never used Tobacco e-Cigarette/Vaping Use: Never Used Second Hand Smoke Exposure: No service: No 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al status: employed 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 1. Little interest or pleasure in doing things: not at all 2. Feeling down, depressed, or hopeless: not at all 3. Trouble falling or staying asleep, or sleeping too much: not at all 4. Feeling tired or having little energy: not at all 5. Poor appetite or overeating: not at all 6. Feeling bad about yourself - or that you are a failure or have let yourself or your family down: not at all 7. Trouble concentrating on things, such as reading the newspaper or watching television: not at all 8. Moving or speaking so slowly that other people could have noticed. Or the opposite - being so fidgety or restless that you have been moving around a lot more than usual: not at all 9. Thoughts that you would be better off or of hurting yourself in some way: not at all Total score: 0 Depression Screening Interpretation: Negative Depression Screening Done: Yes 70762 - PHQ-9 Billing: Yes Source: Developed by Drs. Kyrie Cisneros, Gabi Ribeiro, Neftali Davenport and colleagues, with an educational ba from [employer]. Thrive Questionnaire Date Thrive assessed: 04/15/25 I am a: Patient What is your living situation today?: I have a steady place to live Within the past 12 months, did the food you bought not last and you didn't have the money to get more?: I choose not to answer this question Within the past 12 months, did you worry whether your food would run out before you got money to buy more?: I choose not to answer this question Do you have trouble paying for medicines?: No Do you have trouble getting transportation to medical appointments?: No Do you have trouble paying your heating and electricity bill?: No Do you have trouble taking care of your child, family member or friend?: No Do you have trouble with day-to-day activities such as bathing, preparing meals, shopping, managing finances, etc.?: No Are you currently unemployed and looking for a job?: I choose not to answer this question Are you interested in more education?: I choose not to answer this question Please select the resources that you would like help with: None Currently or been in a relationship where the following occur: I choose not to answer THRIVE Score: 0 BIRDIE-7 AMB Questionnaire BIRDIE-7 Date BIRDIE - 7 assessed: 04/15/25 Feeling nervous, anxious, or on edge: 0 = Not at all Not being able to stop or control worryin = Not at all Worrying too much about different things: 0 = Not at all Trouble relaxin = Not at all Being so restless that it is hard to sit still: 0 = Not at all Becoming easily annoyed or irritable: 0 = Not at all Feeling afraid as if something awful might happen: 0 = Not at all Total BIRDIE-7 score (0-4 normal; 5-9 mild; 10-14 moderate; 15-21 severe): 0 Source: Developed by Drs. Kyrie Cisneros, Gabi Ribeiro, Neftali Davenport and colleagues, with an educational ba from [employer]. BIRDIE-7 Assessment Billing BIRDIE-7 Assessment Tool: BIRDIE-7 Assessment 03480 Physical exam (Primary Care) Vital Signs: Last Vital Signs Temp 97.6 F 04/15/25 08:39 Pulse 82 04/15/25 08:39 Resp 13 04/15/25 08:39 BP 124/72 04/15/25 08:39 Pulse Ox 96 04/15/25 08:39 Oxygen Delivery Method Room Air 04/15/25 08:39 BMI result Body Mass Index 32.9 Tobacco/Smoking Status: Tobacco use Status Tobacco use date assessed 04/15/25 04/15/25 08:40 Patient Tobacco Use Status Never used Tobacco 04/15/25 08:40 e-Cigarette/Vaping Use Never Used 04/15/25 08:40 PHQ-9: PHQ-9 Score PHQ-9: Total score 0 04/15/25 08:40 Depression Screening Interpretation: Negative Thrive Assessment: Date of Thrive Assessment Date Thrive assessed 04/15/25 04/15/25 08:40 Currently or been in a relationship where the following occur: I choose not to answer Coding Level of Care Code Est Pt Level 3 (81357) Complex EM visit Add On G2211 Diagnoses RUQ abdominal pain R10.11 Additional Codes BIRDIE-7 Assessment Billing - BIRDIE-7 Assessment Tool: BIRDIE-7 Assessment 37070 ([id number]) PHQ-9 - 27539 - PHQ-9 Billing: Yes ([id number]) Assessment & Plan Assessment & Plan (1) RUQ abdominal pain: Code(s): R10.11 - Right upper quadrant pain Category: Medical Plan . Orders: Orders CT abdomen wo IV con Today R10.11 - Right upper quadrant pain
[2025-04-15 08:39] VITALS: BP 124/72; PULSE 82; RESP 13; TEMP 36.4; O2SAT 96; BMI 32.9
== END 2025-04-15 13:30 | disposition home or self-care (01) ==
LOC: HO.HMCFM 08:31
PROVIDERS: PCP Nurse Practitioner Family; Visit Provider Nurse Practitioner Family
DX: R10.11 Right upper quadrant pain (principal)

== ENCOUNTER → 2025-04-15 08:31 | Outpatient (BNVA) | payer OTHER, SELFPAY | PROVIDERS: PCP Nurse Practitioner Family; Visit Provider Nurse Practitioner Family | DX: R10.11 Right upper quadrant pain (principal) | CPT/HCPCS: 96127; 99212 ==

== ENCOUNTER → 2025-04-20 08:59 | Outpatient (REF) | payer OTHER, SELFPAY ==
--- NOTE | 2025-04-20 09:02 | CA_ITS ---
Transthoracic Echocardiogram Patient (Last, First, Middle): Britton Fontenot E Gender: M Date of : 1980 Age: 45 Procedure Date: 04/20/2025 Procedure Type: Transthoracic Echocardiogram Location: OP Height: 175.26 cm Weight: 101.15 kg BSA: 2.16 m2 Heart Rate: bpm BP: 120 / 82 mmHg Warehouse Inventory Clerk: TO Referring MD: Keisha Hayes [facility] Geriatric Nurse: Iyla Whipple MD Symptoms: I10 - Essential (primary) hypertension Study Quality: Adequate ECG Rhythm: Sinus Conclusions: - 1. Normal LV ejection fraction of 60-65% with focal basal septal hypertrophy without obstructive physiology with normal filling pattern 2. Normal cardiac valvular Dopplers 3. Upper limits of normal ascending aortic size 4. No gross pericardial effusion Findings Left Ventricle Normal left ventricular size, thickness, and systolic function. The visually estimated ejection fraction is between 60-65%. Spectral Doppler is indicative of a normal filling pattern. There is mild septal asymmetric hypertrophy. Right Ventricle Normal right ventricular cavity size and systolic function. Atria The left atrium is normal in size. Interatrial shunt cannot be excluded. The right atrium is normal in size. Aortic Valve Normal aortic valve structure and function. There is no aortic valve stenosis. There is no aortic valve regurgitation. Mitral Valve Normal mitral valve structure and function. There is trace mitral valve regurgitation. There is no mitral valve stenosis. Pulmonic Valve The pulmonic valve is likely normal. Tricuspid Valve Normal tricuspid valve structure. Tricuspid regurgitation envelope is inadequate for calculation of right ventricular systolic pressure. Normal right atrial pressure. Great Vessels All visible segments of the aorta are normal in size. The pulmonary artery was not well visualized. There is no dilatation of the ascending aorta measuring 3.60 cm. Venous The inferior vena cava is normal in size and collapses greater than 50% with inspiration. Pericardium/Pleural There is no evidence of pericardial effusion. Prior Study Comparison No prior study available for comparison. Measurements 2D Linear Measurements IVSd: 0.99 0.6-0.9/0.6-1.0 cm LVIDd: 4.73 3.9-5.3/4.2-5.9 cm LVIDd Index: 2.19 2.4-3.2/2.2-3.1 cm/m2 LVIDs: 3.37 2.0-3.6 cm LVPWd: 0.85 0.7-1.1 cm LA Diam: 3.80 2.7-3.8/3.0-4.0 cm LAIDs Index: 1.76 1.5-2.3 cm/m2 LV Mass: 185.42 67-162/88-224 g LV Mass Index: 85.84 43-95/49-115 g/m2 LVOT Diam: 2.40 3.0+(-)1.3 cm 2D Systolic Function EF 4C: 57.10 >55% EF 2C: 61.50 >55% EF BiP: 59.90 >55% Mitral Valve MV Pk E: 0.58 MV PK A: 0.47 MV Decel Time: 252.00 E/A: 1.20 E'Lateral: 8.59 E'Medial: 5.87 E/E' Med: 9.90 E/E' Lat: 6.80 PHT: 74.00 MVA PHT: 2.97 Decel [place]: 2.32 Aortic Valve AoV Pk Jacob: 1.39 AoV Mn Jacob: 0.94 AoV VTI: 0.29 AoV Pk Grad: 8.00 Aov Mn Grad: 4.00 DILAN Cont.VTI: 4.18 LVOT LVOT Pk Jacob: 1.35 LVOT Mn Jacob: 0.98 LVOT VTI: 0.27 LVOT Pk Grad: 7.00 LVOT Mn Grad: 4.00 LVOT Diam: 2.40 LVOT Area: 4.52 Diastolic Function MV Pk E: 0.58 MV Pk A: 0.47 E/A: 1.20 E'Medial: 5.87 E/E' Med: 9.90 E' Laterial: 8.59 E/E' Lat: 6.80 Right Ventricle TAPSE (mm): 19.80 TVS' Jacob: 9.90 Tricuspid Valve RA Press: 3.00 Great Vessels Aorta Sinus of Valsalva: 3.21 2.0-3.5 cm Ao Asc: 3.60 2.1-3.4 cm Ao Arch: 3.20 Updated in Other Vendor System with Status of Final Ilya Whipple MD electronically signed on 04/20/2025 6:26:07 PM with status of Final
--- OUTSIDE RECORDS SUMMARY | 2025-04-20 09:33 | XMS_ITS | Encounter Summary ---
Author Organization [facility] Address [address] [place] [address] Care Team Providers Care Enterprise Integration Developer Name Role Phone Deshaun Hopkins MD Primary Care Provider Un available Kyrie Kim DO Primary Care Provider Ciara vailable Mannie Wolfe MD Primary Care Provider [phone] Encounter Details Date Type Department Care Team Description 08/31/2018 Release of Information Medical Records [address] [place] [id number] Abstract, Provider Social History Tobacco Use Types Packs/Day Years Used Date Smoking Tobacco: Never Smokeless Tobacco: Never Comments:none Alcohol Use Standard Drinks/Week Comments Yes 0 (1 standard drink = 0.6 oz pur e alcohol) occ Physical Activity Answer Date Recorded On average, how many days pe r week do you engage in moderate to strenuous exercise (like walking fast, running, jogging, dancing, swimming, biking, or other activities that cause a light or heavy sweat)? 0 days 02/02/2021 On average, how many minutes do you engage in exercise at this level? Not asked Sex Assigned at Date Recorded Not on file Job Start Date Occupation Industry Not on file Not on file Not on file documented as of this encounter Plan of Treatment Not on file documented as of this encounter Visit Diagnoses Not on filedocumented in this encounter Care Teams Enterprise Integration Developer Relationship Specialty Start Date End Date Deshaun Hopkins MD PCP - General Internal Medicine 08/18/18 Kyrie Kim DO PCP - General Internal Medicine 12/20/20 07/10/21 Mannie Wolfe MD [address] [place] [id number] PCP - General Internal Medicine 07/11/21 documented as of this encounter
--- OUTSIDE RECORDS SUMMARY | 2025-04-20 09:34 | XMS_ITS | Encounter Summary ---
Author Organization [facility] Address [address] [place] [address] Care Team Providers Care Crane Helper Name Role Phone Villa Bowen MD Primary Care Provider [phone] Deshaun Hopkins MD Primary Care Provider Un available Kyrie Kim DO Primary Care Provider Ciara vailable Mannie Wolfe MD Primary Care Provider [phone] Encounter Details Date Type Department Care Team Description 03/07/2017 SCAN Medical Records [address] [place] [address] Jose Ratliff MD Social History Tobacco Use Types Packs/Day Years Used Date Smoking Tobacco: Never Assessed Physical Activity Answer Date Recorded On average, [...] on file documented as of this encounter Procedures Procedure Name Priority Date/Time Associated Diagnosis Comments OUTSIDE ECHO Routine 03/07/2017 documented in this encounter Results * OUTSIDE ECHO (03/07/2017) Provider Default CARDIOLOGY documented in this encounter Visit Diagnoses Not on filedocumented in this encounter Care Teams Crane Helper Relationship Specialty Start Date End Date Villa Bowen MD [address] [place] [id number] PCP - General 07/12/1996 08/17/18 Deshaun Hopkins MD [address] [place] [address] PCP - General Internal Medicine 08/18/18 12/19/20 Kyrie Kim DO [address] [place] [address] PCP - General Internal Medicine 12/20/20 07/10/21 Mannie Wolfe MD [address] [place] [address] PCP - General Internal Medicine 07/11/21 documented as of this encounter
--- OUTSIDE RECORDS SUMMARY | 2025-04-20 09:34 | XMS_ITS | Encounter Summary ---
Author Organization [facility] Address [address] [place] [address] Care Team Providers Care Classification Officer Name Role Phone Mannie Wolfe MD Primary Care Provider [phone] Reason for Visit * Reason Onset Date Comments Knee Pain 12/20/2021 Ankle Pain 12/20/2021 Encounter Details Date Type Department Care Team Description 12/20/2021 Pt. Non Urgent Medical Question Adult Medicine [address] [address] Mannie Wolfe MD [address] [place] [address] [id number] Social History Tobacco Use Types Packs/Day Years [...] on file documented as of this encounter Miscellaneous Notes * Telephone Encounter - Renetta Cool M.A. - 12/20/2021 1:43 PM EDTFrom: Britton Gerardo Po To: Irene Wolfe Sent: 12/20/2021 1:39 PM EDT Subject: knee and ankle pain Hello I was trying to book an appointment but it wasnt letting me I have been having alot of knee and ankle pain so much i can not sleep of someone can book an appointment that would be much appreciated thank you, Tino documented in this encounter Plan of Treatment Not on file documented as of this encounter Visit Diagnoses Not on filedocumented in this encounter Care Teams Classification Officer Relationship Specialty Start Date End Date Mannie Wolfe MD [address] [place] [id number] PCP - General Internal Medicine 07/11/21 documented as of this encounter
== END ==
LOC: HO.CARD 08:59
PROVIDERS: PCP Nurse Practitioner Family; Visit Provider Nurse Practitioner Family
DX: I10 Essential (primary) hypertension (principal); I45.6 Pre-excitation syndrome
CPT/HCPCS: 93306

== ENCOUNTER → 2025-04-20 09:02 | Outpatient (BNV) | payer OTHER, SELFPAY | PROVIDERS: PCP Nurse Practitioner Family; Visit Provider Internal Medicine Cardiovascular Disease | DX: I42.2 Other hypertrophic cardiomyopathy (principal) | CPT/HCPCS: 93306 ==

== ENCOUNTER 2025-05-10 13:45 | Outpatient (AMB) | payer OTHER, SELFPAY ==
--- NOTE | 2025-05-10 13:51 | A.OFFVIS_ITS ---
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 Accompanied by: Other Relationship Allergies Penicillins (PENICILLINS) Allergy (Unknown, Verified 05/10/25 13:54) UNKNOWN Medication List - Last Reconciled 05/10/25 by Rene Delgadillo NP atorvastatin (Lipitor) 40 mg PO BEDTIME bupropion HCl XL (Wellbutrin XL) 150 mg PO QAM empagliflozin (Jardiance) 25 mg PO DAILY escitalopram oxalate (Lexapro) 10 mg PO DAILY [Freestyle lite glucometer check blood sugar once daily in the morning before eating] [Freestyle lite lancets test blood glucose once daily in the morning before eating] [Freestyle lite test strips test once daily in the morning before eating] hydrochlorothiazide 12.5 mg PO QAM hydroxyzine HCl 25 mg PO BID PRN metformin ER 1,000 mg (2 x 500 mg) PO BID HPI Comments Details: This is a 45-year-old male patient coming in for a follow-up visit, accompanied by his . Patient with a history of hypertension, hyperlipidemia, diabetes, Tikak-Nzojgwjos-Jowgy syndrome and SVT status post ablation for both in 2015. Patient was previously seen in the office for chest discomfort. Per records from [facility], patient had undergone a Holter study in 2016 that showed an elevated burden of PVCs at 26%. Patient states today that he was trialed on metoprolol however patient came off this due to unclear side-effects. Patient had also undergone a treadmill stress test test in 2020 that showed chronotropic incompetence with occasional PVCs. Today, patient is reporting feeling well overall without any symptoms of chest pain, shortness of breath, palpitations, dizziness, orthopnea, PND, leg edema, presyncope or syncope. Patient is reporting compliance with all his medications. FORMERLY [facility] Medical History (Updated 05/10/25 @ 14:16 by Rene Delgadillo NP) Precordial chest pain External hemorrhoids with complication Weakness on left side of face Tongue abnormality Sleep difficulties Snoring Excessive daytime sleepiness Palpitations Acute hemorrhoid Knee pain Back pain History of prediabetes Anxiety Dvult-Oddwtfwhc-Rwqwx (WPW) syndrome Surgical History H/O cardiac radiofrequency ablation Family History Father Asthma Hypertension Diabetes Paternal Grandmother Hypertension Diabetes Brother Hypertension Social History Household Members: Spouse and Children Household Members Other:: children x3, dog Housing: House 75 years or older and lives alone: No Alcohol intake: former Patient Tobacco Use Status: Never used Tobacco e-Cigarette/Vaping Use: Never Used Second Hand Smoke Exposure: No service: No 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al status: employed 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[employer], 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al exposures/hazards: Yes Sexual orientation: Straight/Heterosexual Gender identity: Male Cognitive needs: No Hearing needs: Yes Vision needs: No Review of Systems Const Denies daytime sleepiness, Denies difficulty sleeping, Denies snoring, Denies stops breathing during sleep and Denies weakness Card Denies chest pain, Denies rapid heart rate, Denies irregular heart rhythm, Denies claudication, Denies leg edema, Denies lightheadedness, Denies palpitations, Denies dyspnea, Denies dyspnea on exertion, Denies orthopnea, Denies paroxysmal nocturnal dyspnea and Denies slow heart rate Resp Denies cough, Denies dyspnea, Denies dyspnea on exertion and Denies snoring GI Reports no additional complaints, Denies hematochezia, Denies change in stool character and Denies dyspepsia Musc Denies abnormal gait, Denies muscle weakness and Denies numbness Neuro Denies abnormal gait, Denies numbness and Denies weakness Endo Denies palpitations Physical Exam Vital Signs: Last Vital Signs Pulse 78 05/10/25 13:52 BP 126/82 05/10/25 13:52 BMI result Body Mass Index 32.0 Const General: cooperative, healthy appearing, comfortable and no acute distress Orientation/consciousness: patient oriented x3 HEENT Head: Yes normal to inspection Neck Neck: Yes normal visual inspection, Yes trachea midline and Yes supple Chest Chest palpation & inspection: normal inspection of the chest Resp Effort & Inspection: normal respiratory effort Auscultation: clear to auscultation bilaterally, no crackles, no rales, no rhonchi and no wheezes Cardio Jugular venous distension: no JVD Palpation: normal PMI Rate: regular rate Rhythm: regular rhythm Heart sounds: S1 normal heart sound present, S2 normal heart sound present, no click, no gallops, no murmurs and no rubs Peripheral pulses: Peripheral pulses 2+ throughout GI Inspection: Yes normal to inspection Palpation (GI): Soft to palpation Auscultation: normal bowel sounds Skin General skin exam: no rashes or lesions noted Neuro General: patient oriented x3 Extrem General: Yes normal to inspection, No no pedal edema and No calf tenderness Psych Appearance: grossly normal Mental Status: mental status grossly normal Speech and movement: Normal speech and movement present Office Procedures EKG Details: EKG today showed normal sinus rhythm, rate 78 beats per minute, nonspecific STT wave, normal DC, [place]. [id number], Complete Assessment & Plan Assessment & Plan (1) Kmkdt-Xuxgzityx-Rrkfi (WPW) syndrome: Code(s): I45.6 - Pre-excitation syndrome Category: Medical (2) PVC (premature ventricular contraction): Code(s): I49.3 - Ventricular premature depolarization Category: Medical (3) Hypertension: Comment: At goal < 130/80 on hydrochlorothiazide 12.5 mg daily. Continue Code(s): I10 - Essential (primary) hypertension Category: Medical Qualifiers: Hypertension type: primary hypertension Qualified Code(s): I10 - Essential (primary) hypertension (4) Hyperlipidemia: Comment: LDL GOAL < 70, UPDATE TODAY, START STATIN NEEDED Code(s): E78.5 - Hyperlipidemia, unspecified Category: Medical Qualifiers: Hyperlipidemia type: mixed hyperlipidemia Qualified Code(s): E78.2 - Mixed hyperlipidemia Plan History of WPW and SVT status post ablation in 2015. Patient had undergone a Holter study in 2016 that showed a PVC burden of 26%. Patient was started on metoprolol therapy however patient came off this due to side effects from it. Patient does not remember what he felt with the medication. Patient had also undergone a regular stress test in 2020 that showed chronotropic incompetence. Patient unsure if he was on metoprolol at that time. We will repeat the to check for chronotropic competence. We will also repeat a Holter to check for PVC burden. In case of elevated burden, we can refer patient out to EP for ablation. Patient understanding of the plan and is in agreement. Patient's recently underwent an echocardiogram on 04/20/2025 that showed normal LV systolic function with the ejection fraction between 60-65% with focal basal septal hypertrophy. Blood pressure today is well-controlled. Continue current regimen with a blood pressure goal less than 130/80. Advised on low-salt diet. Continue statin therapy with an LDL goal less than 70. Continue diabetes management with an A1c goal less than 7%. Advised on heart healthy diet, regular exercise, med compliance, and aggressive management of vascular risk factors. Follow up after testings. In the interim, patient will call the office with any concerns or change in symptoms. This note was generated using voice recognition software. While every effort has been made to ensure accuracy and proper web development manager, there may be occasional errors that could affect the content or meaning of the described symptoms. Orders: Orders AMB EKG-In Office Today I45.6 - Pre-excitation syndrome CA stress test Today I45.6 - Pre-excitation syndrome, R07.2 - Precordial pain ECG holter monitor 48 hour Today I49.3 - Ventricular premature depolarization Coding Level of Care Code Est Pt Level 4 (50206) Complex visit Add On G2211 Diagnoses Ghmwt-Fvhsectui-Lwuxl (WPW) syndrome I45.6 PVC (premature ventricular contraction) I49.3 Primary hypertension I10 Hypertension type: primary hypertension Mixed hyperlipidemia E78.2 Hyperlipidemia type: mixed hyperlipidemia CPT Codes EKG - CPT: 93721-[id number], Complete ([id number]) Time Spent (min) 32 Comment Time spent in reviewing the chart, test results, assessment, counseling and documentation.
[2025-05-10 13:52] VITALS: BP 126/82; PULSE 78; BMI 32.0
== END 2025-05-10 14:15 | disposition home or self-care (01) ==
LOC: HO.HCS 13:46
PROVIDERS: PCP Nurse Practitioner Family
DX: I45.6 Pre-excitation syndrome (principal); I49.3 Ventricular premature depolarization; I10 Essential (primary) hypertension; E78.2 Mixed hyperlipidemia
CPT/HCPCS: 93010; 99214

== ENCOUNTER → 2025-05-10 13:45 | Outpatient (BNVA) | payer OTHER, SELFPAY | PROVIDERS: PCP Nurse Practitioner Family | DX: I45.6 Pre-excitation syndrome (principal); I49.3 Ventricular premature depolarization; I10 Essential (primary) hypertension; E78.2 Mixed hyperlipidemia; R07.2 Precordial pain; E11.9 Type 2 diabetes mellitus without complications; Z79.899 Other long term (current) drug therapy; Z79.84 Long term (current) use of oral hypoglycemic drugs | CPT/HCPCS: 93005; 99212 ==

== ENCOUNTER 2025-05-11 15:56 | Outpatient (REF) | payer OTHER, SELFPAY ==
--- NOTE | ~2025-05-11 | CT_ITS ---
EXAMINATION: CT ABDOMEN AND PELVIS WITHOUT CONTRAST CLINICAL INFORMATION: R10.11 - Right upper quadrant pain and right flank pain for months without radiation and painful with certain movements, unable to replicate the pain during the examination, not related to food intake, history of kidney stones COMPARISON: 02/05/2024 TECHNIQUE: Multidetector volumetric imaging was performed from the superior aspect of the liver through the pubic symphysis. Sagittal and coronal reformatted images were obtained on the technologist's workstation. This CT examination was performed using dose optimization techniques as appropriate, variously including the following: *Automated exposure control *Adjustment of mA and/or kV according to patient size (this includes techniques or standardized protocols for targeted exams where dose is matched to indication/reason for exam; i.e. extremities or head) *Use of iterative reconstruction technique FINDINGS: LUNG BASES: The visualized lung bases are unremarkable. LIVER, GALLBLADDER, AND BILIARY TREE: The liver is normal in size, shape, and attenuation. No focal hepatic lesion or biliary ductal dilatation is present. The gallbladder is unremarkable with no evidence of radiopaque gallstones, gallbladder wall thickening, or obvious pericholecystic inflammatory changes. PANCREAS: Unremarkable. SPLEEN: Unremarkable. ADRENAL GLANDS: Unremarkable. KIDNEYS AND URETERS: Again seen is a 2 x 3 mm stone in the mid right kidney, only visible on thin section CT #4 image 281. There is a 1 mm stone in the upper pole left kidney. BLADDER: Unremarkable. GASTROINTESTINAL TRACT: The small and large bowel are unremarkable. The appendix is unremarkable. ABDOMINAL WALL: No significant hernia is appreciated. LYMPH NODES: Normal. VASCULAR: Unremarkable. PELVIC VISCERA: Unremarkable. OSSEOUS STRUCTURES: Mild degenerative disc disease is present L4-5 and in the lower thoracic spine. CT/CT abdomen pelvis wo IV con IMPRESSION: No shifting 2 x 3 mm stone is present in the right kidney and 1 mm stone in the upper left kidney. Fleischner guidelines were followed. Electronically signed by: Louis Multani MD 05/11/2025 04:30 PM EST
== END 2025-05-11 15:57 | disposition home or self-care (01) ==
LOC: HO.CT 15:56
PROVIDERS: PCP Nurse Practitioner Family; Visit Provider Nurse Practitioner Family
DX: R10.11 Right upper quadrant pain (principal); R79.89 Other specified abnormal findings of blood chemistry
CPT/HCPCS: 74176

== ENCOUNTER → 2025-05-11 15:57 | Outpatient (BNV) | payer OTHER, SELFPAY | PROVIDERS: PCP Nurse Practitioner Family; Visit Provider Radiology Diagnostic Radiology | DX: N20.0 Calculus of kidney (principal) | CPT/HCPCS: 74176 ==